=== PATIENT | female | born 1965 | race Caucasian/White ===

== ENCOUNTER 2020-09-19 08:46 | Outpatient (REF) | payer OTHER, SELFPAY ==
--- NOTE | 2020-10-05 13:58 | MHC.AU.HAS ---
Hearing Aid Evaluation Date of Visit: 09/19/20 Historical Information: Description of Hearing: Right: Mild sloping to profound sensorineural hearing loss Left: Severe to profound mixed hearing loss Summary: Patient is working with [employer]. She has worn KYARA and BTE style hearing aids in the past. Her most recent pair was by [employer] Patient reports a strong family history of hearing loss. Patient had frequent middle ear problems in childhood, resulting in numerous PE tube surgeries and significant scarring. Patient would prefer to stay with the KYARA style. Hearing Aid Prescription: Based on the individual?s shared listening needs, communication environments, dexterity, desire for connectivity, and personal preferences, the following prescription for amplification has been made: Right ear: Field Sales Trainer: Phonak Model: Audeo P70-R Battery Size: Rechargeable Color: P6 Figure Refinisher And Repairer: 1P Type of Mold: cShell Left ear: Field Sales Trainer: Phonak Model: Audeo P70-R Battery Size: Rechargeable Color: P6 Figure Refinisher And Repairer: 1UP Type of Mold: cShell Action Taken/Action Needed: Earmold Impressions Taken Prior authorization to be requested Hearing Fitting to be scheduled when materials arrive Signature: Provider: Bang Ronquillo, CCC-A
== END 2020-09-19 08:47 | disposition home or self-care (01) ==
LOC: HO.HAP 08:46
PROVIDERS: PCP Internal Medicine; Visit Provider Otolaryngology
DX: Z46.1 Encounter for fitting and adjustment of hearing aid (principal)
CPT/HCPCS: 92591

== ENCOUNTER 2020-12-06 08:12 | Outpatient (REF) | payer OTHER, SELFPAY ==
--- NOTE | 2020-12-06 09:04 | MHC.AU.HFU ---
Hearing Instrument Follow-Up- Binaural Date of Visit: 12/06/20 Follow-Up Summary: Patient had called to inquire if she could get a loaner instrument, as the MRC process took longer than expected. Being without hearing aids has significantly impacted her ability to perform at work. When she arrived today, she reported that she had found two of her older instruments, an Oticon Agil RITE and an Oticon Hartsburg RITE, but neither were working. One had a custom mold with integrated automotive painter helper, and the other custom mold was not integrated. The integrated automotive painter helper wire was loose, and almost ready to fall off. The Agil could not turn on, even when trying a different automotive painter helper. The Hartsburg could turn on and amplify sound, once it had a new automotive painter helper. The custom mold was placed on the new automotive painter helper. Patient was very thankful that she could have something to get her by until the new instruments arrive. No loaners were given today. Recommendations: Patient will be contacted to schedule a hearing aid fitting when the materials arrive (per Phonak, estimated to arrive either Thursday 12/07 or Sunday 12/10). Diagnosis Code(s): Primary Diagnosis: H90.3 Bilateral Sensorineural Hearing Loss Signature: Provider: Bang Ronquillo, CCC-A
== END 2020-12-06 08:13 | disposition home or self-care (01) ==
LOC: HO.HAP 08:12
PROVIDERS: Visit Provider Otolaryngology
DX: Z13.89 Encounter for screening for other disorder (principal)

== ENCOUNTER 2020-12-24 11:39 | Outpatient (REF) | payer SELFPAY ==
--- NOTE | 2020-12-24 11:42 | MHC.AU.P13 ---
Hearing Instrument Problem Date of Visit: 12/24/20 Right Ear: Memorial Adviser: Phonak Model: Audeo P70-R Serial Number: [id number] Repair Warranty: 03/06/2024 Loss and Damage Warranty: 03/06/2024 Battery Size: Rechargeable Color: P6 Animal Geneticist: 1P Type of Mold: cShell #[id number] Service Warranty 04/06/2021 Type of Wax Guard: CeruStop Left Ear: Memorial Adviser: Phonak Model: AirInSpaceeo P70-R Serial Number: [id number] Repair Warranty: 03/06/2024 Loss and Damage Warranty: 03/06/2024 Battery Size: Rechargeable Color: P6 Animal Geneticist: 1UP Type of Mold: cShell #2115ADNR Service Warranty 04/06/2021 Type of Wax Guard: CeruStop Follow-Up Summary: Patient dropped off right hearing aid for repair - histopathology technician is detached inside c-shell - sent to [facility] for in warranty repair. Recommendations: Recommendations: Patient will be contacted when materials have arrived. Signature: Provider: SHEN Mcdowell-
== END 2020-12-24 11:40 | disposition home or self-care (01) ==
LOC: HO.HAP 11:39
PROVIDERS: Visit Provider Internal Medicine
DX: Z13.89 Encounter for screening for other disorder (principal)

== ENCOUNTER 2021-01-08 10:27 | Outpatient (REF) | payer SELFPAY | END 2021-01-08 10:28 | disposition home or self-care (01) | LOC: HO.HAP 10:27 | PROVIDERS: Visit Provider Internal Medicine | DX: Z13.89 Encounter for screening for other disorder (principal) ==

== ENCOUNTER 2021-02-28 08:21 | Outpatient (REF) | payer SELFPAY | END 2021-02-28 08:22 | disposition home or self-care (01) | LOC: HO.HAP 08:21 | PROVIDERS: Visit Provider Internal Medicine | DX: Z46.1 Encounter for fitting and adjustment of hearing aid (principal); H90.3 Sensorineural hearing loss, bilateral | CPT/HCPCS: V5267 ==

== ENCOUNTER 2021-04-05 10:12 | Outpatient (REF) | payer SELFPAY | END 2021-04-05 10:13 | disposition home or self-care (01) | LOC: HO.HAP 10:12 | PROVIDERS: Visit Provider Internal Medicine | DX: Z46.1 Encounter for fitting and adjustment of hearing aid (principal); H90.3 Sensorineural hearing loss, bilateral | CPT/HCPCS: V5267 ==

== ENCOUNTER → 2021-05-13 09:52 | Outpatient (BNVA) | payer OTHER, SELFPAY | PROVIDERS: PCP Internal Medicine; Visit Provider Hospitalist | DX: J01.40 Acute pansinusitis, unspecified (principal); H67.9 Otitis media in diseases classified elsewhere, unspecified ear; J40 Bronchitis, not specified as acute or chronic; F17.200 Nicotine dependence, unspecified, uncomplicated | CPT/HCPCS: 99202 ==

== ENCOUNTER 2021-05-30 12:55 | Outpatient (REF) | payer SELFPAY | END 2021-05-30 12:56 | disposition home or self-care (01) | LOC: HO.HAP 12:55 | PROVIDERS: Visit Provider Internal Medicine | DX: Z46.1 Encounter for fitting and adjustment of hearing aid (principal); H90.3 Sensorineural hearing loss, bilateral | CPT/HCPCS: V5267 ==

== ENCOUNTER 2021-06-20 10:32 | Outpatient (REF) | payer SELFPAY ==
--- NOTE | 2021-06-21 15:00 | MHC.AU.HFU ---
Hearing Instrument Follow-Up- Binaural Date of Visit: 06/20/21 Right Ear: Rn Military: Phonak Model: Audeo P70-R Serial Number: [id number] Repair Warranty: 03/06/2024 Loss and Damage Warranty: 03/06/2024 Battery Size: Rechargeable Color: P6 Combat Control Manager: 1P Type of Mold: cShell #[id number] Service Warranty 04/06/2021 Type of Wax Guard: CeruStop Dispensed By: [facility] Date of Fittin12/13/2020 Left Ear: Rn Military: Phonak Model: Audeo P70-R Serial Number: [id number] Repair Warranty: 03/06/2024 Loss and Damage Warranty: 03/06/2024 Battery Size: Rechargeable Color: P6 Combat Control Manager: 1UP Type of Mold: cShell #2115ADNR Service Warranty 04/06/2021 Type of Wax Guard: CeruStop Dispensed By: [facility] Date of Fittin12/13/2020 Follow-Up Summary: Patient reports that some days the battery charge has not lasted as long as expected, but most days it's fine. She is unsure if they are charging correctly. She also reports that her left ear has always been prone to ear infections (also has long-standing tympanic membrane perforation). Since using the hearing aids, she has been experiencing more ear infections than usual, with drainage. She has not been wearing the left hearing aid when there is active drainage. Hearing aids were inspected. Vents in molds were occluded. Vents were cleaned. Debris removed from microphones. Molds and shells cleaned. Hearing aids are amplifying clearly. Software update was installed on the hearing aids. Hearing aids had an expected amount of charge for the time of day it was. Discussed that the more streaming is done from the phone, the more battery is used. The days the charge has not lasted all day may be the days she was using her phone more often. Patient also reports that she forgot how to turn them off manually, so if she took the hearing aids off, they were staying on. Discussed how to manually shut the hearing aids off, which will help save battery. Discussed the increased ear infections. Given the extent of patient's hearing loss, a dome or larger vent in the mold would not be advised, as then we would not be able to provide adequate gain for the hearing aid. Advised wiping down the mold with alcohol wipes every day. The vent had also been plugged with wax. Gave the patient threads to clean out the vent on a daily basis so that it can stay clear and help provide some airflow to the canal. Discussed that she may also want to briefly take the hearing aid out a few times throughout the day to air out the ear canal. Recommendations: Hearing instrument follow-up or maintenance as needed. Please contact our clinic with any questions or concerns. Patient will call if problems persist. If she continues to experience more ear infections than usual, she should also follow-up to with Ear, Nose, and Throat to discuss further ways to prevent infection. Diagnosis Code(s): Primary Diagnosis: H90.A32 Mixed HL, Unilateral, Left Ear, W/Restricted Contralateral Signature: Provider: Bang Ronquillo, CCC-A
== END 2021-06-20 10:33 | disposition home or self-care (01) ==
LOC: HO.HAP 10:32
PROVIDERS: Visit Provider Internal Medicine
DX: Z13.89 Encounter for screening for other disorder (principal)

== ENCOUNTER 2021-08-13 15:20 | Outpatient (REF) | payer SELFPAY | END 2021-08-13 15:21 | disposition home or self-care (01) | LOC: HO.HAP 15:20 | PROVIDERS: Visit Provider Internal Medicine | DX: Z46.1 Encounter for fitting and adjustment of hearing aid (principal) | CPT/HCPCS: V5267 ==

== ENCOUNTER 2021-09-30 10:26 | Outpatient (REF) | payer SELFPAY | END 2021-09-30 10:27 | disposition home or self-care (01) | LOC: HO.HAP 10:26 | PROVIDERS: Visit Provider Internal Medicine | DX: Z13.89 Encounter for screening for other disorder (principal) ==

== ENCOUNTER 2021-10-09 11:10 | Outpatient (REF) | payer SELFPAY | END 2021-10-09 11:11 | disposition home or self-care (01) | LOC: HO.HAP 11:10 | PROVIDERS: Visit Provider Internal Medicine | DX: Z13.89 Encounter for screening for other disorder (principal) ==

== ENCOUNTER 2022-01-14 09:47 | Outpatient (REF) | payer SELFPAY ==
--- NOTE | 2022-01-14 16:59 | MHC.AU.HFU ---
Hearing Instrument Follow-Up- Binaural Date of Visit: 01/14/22 Right Ear: Account Service Representative: Phonak Model: Audeo P70-R Serial Number: [id number] Repair Warranty: 03/06/2024 Loss and Damage Warranty: 03/06/2024 Battery Size: Rechargeable Color: P6 Fundraising Specialist: 1P Type of Mold: cShell #[id number] Service Warranty 04/06/2021 Type of Wax Guard: CeruStop Dispensed By: [facility] Date of Fittin12/13/2020 Left Ear: Account Service Representative: Phonak Model: Audeo P70-R Serial Number: [id number] Repair Warranty: 03/06/2024 Loss and Damage Warranty: 03/06/2024 Battery Size: Rechargeable Color: P6 Fundraising Specialist: 1UP Type of Mold: cShell #[id number] Service Warranty 04/06/2021 Type of Wax Guard: CeruStop Dispensed By: [facility] Date of Fittin12/13/2020 Follow-Up Summary: Patient dropped off aids to be sent for repair. She called last week reporting that she gets the low battery warning after only two hours of use. She is frustrated and would like them to be replaced. Discussed the moisture problems that we discussed last time. She noted that she needs a new battery for her electric dryer so she hasn't used it since last time we spoke in September when the aids were sent out for the same problem. Inspection of the aids indicates that they are quite dirty, microphone ports clogged, missing wax guard on one, discoloration of the pillar worker wires. Suspect that moisture has a lot to do with the problem. Going to recommend hearing aid moisture covers and emphasize importance of frequent maintenance and use of the electric dryer. Recommendations: Patient will be contacted when materials have arrived. Schedule a repair pick-up with Melva when in. Diagnosis Code(s): Primary Diagnosis: H90.3 Bilateral Sensorineural Hearing Loss Signature: Provider: Bang Dimas, [facility]
== END 2022-01-14 09:48 | disposition home or self-care (01) ==
LOC: HO.HAP 09:47
PROVIDERS: Visit Provider Internal Medicine
DX: Z13.89 Encounter for screening for other disorder (principal)

== ENCOUNTER 2022-02-07 09:02 | Outpatient (REF) | payer SELFPAY | END 2022-02-07 09:03 | disposition home or self-care (01) | LOC: HO.HAP 09:02 | PROVIDERS: Visit Provider Internal Medicine | DX: Z13.89 Encounter for screening for other disorder (principal) ==

== ENCOUNTER 2022-06-24 12:49 | Outpatient (REF) | payer SELFPAY ==
--- NOTE | 2022-06-30 07:50 | MHC.AU.HFU ---
Hearing Instrument Follow-Up- Binaural Date of Visit: 06/24/22 Right Ear: Brand Inspector: Phonak Audeo P 70-R Silver Osborn Serial #[id number] Repair Warranty: 03/06/2024 Loss and Damage Warranty: 03/06/2024 Service Plan: 12/13/2021 Battery Size: Rechargeable Color: P6 Live Ammunition Inspector: 1P Type of Mold: cShell #[id number] Service Warranty 04/06/2021 Type of Wax Guard: CeruStop Dispensed By: [facility] Date of Fittin12/13/2020 Left Ear: Brand Inspector: Phonak Audeo P 70-R Silver Osborn Serial #[id number] Repair Warranty: 03/06/2024 Loss and Damage Warranty: 03/06/2024 Service Plan: 12/13/2021 Battery Size: Rechargeable Live Ammunition Inspector: 1UP Type of Mold: cShell #2115ADNR Service Warranty 04/06/2021 Type of Wax Guard: CeruStop Dispensed By: [facility] Date of Fittin12/13/2020 Follow-Up Summary: Hearing Aid Problem - Patient comes in today reporting more problems with the division merchandise manager and only getting 2-3 hours of use before the aids shut off. I provided another division merchandise manager which was an extra from the office today (verified aids were not charging in the division merchandise manager patient brought but did charge on our stock division merchandise manager) Patient is concerned about the durability. Discussed the results of the diagnostics run with last repairs sent in. Patient is hoping to be able to exchange these aids to the battery style but discussed we are past the exchange time. I EMAILED JOANNA GIFFORD AT [facility] TO EXPLAIN THE PROBLEM, PATIENT'S REQUEST, AND THE REQUEST FOR A CHARGE & CARE MECHANICAL APPLICATIONS ENGINEER. SEE COPY OF EMAIL IN CHART. Recommendations: WILL CONTACT PATIENT WHEN REPLY FROM JOANNA GIFFORD IS RECEIVED. Diagnosis Code(s):Primary Diagnosis: H90.3 Bilateral Sensorineural Hearing Loss Signature: Provider Susan Cuenca CCC-Taiwo Provider:
== END 2022-06-24 12:50 | disposition home or self-care (01) ==
LOC: HO.HAP 12:49
PROVIDERS: Visit Provider Internal Medicine
DX: Z13.89 Encounter for screening for other disorder (principal)

== ENCOUNTER 2022-07-15 15:13 | Outpatient (REF) | payer SELFPAY ==
--- NOTE | 2022-07-15 17:34 | MHC.AU.HFU ---
Hearing Instrument Follow-Up- Binaural Date of Visit: 07/15/22 Right Ear: Outreach Rep: Phonak Audeo P 70-R Silver Osborn Serial #[id number] Repair Warranty: 03/06/2024 Loss and Damage Warranty: 03/06/2024 Service Plan: 12/13/2021 Battery Size: Rechargeable Skiver Counter: 1P Type of Mold: cShell #[id number] Service Warranty 04/06/2021 Type of Wax Guard: CeruStop Dispensed By: [facility] Date of Fittin12/13/2020 Left Ear: Outreach Rep: Phonak Audeo P 70-R Silver Osborn Serial #[id number] Repair Warranty: 03/06/2024 Loss and Damage Warranty: 03/06/2024 Service Plan: 12/13/2021 Battery Size: Rechargeable Skiver Counter: 1UP Type of Mold: cShell #[id number] Service Warranty 04/06/2021 Type of Wax Guard: CeruStop Dispensed By: [facility] Date of Fittin12/13/2020 Follow-Up Summary: Patient continues to report the aids are not keeping a charge all day and she is no longer receiving her notifications from her cell phone through the aids. Able to check datalogging today (last visit the aids were not charged). Datalogging show 14-15 average daily wearing time of aids with 21.5 % streaming. Patient was a bit upset because she did not know/believe how much the streaming decreased battery. Called [facility] to have patient discuss her concerns. The Airframe And Powerplant Technician reported she felt patient was actually getting more time than expected for battery life based on number of wearing hours and streaming time. Patient has a better understanding of how and when to use aids with bluetooth. Notification problems are likely related to the fact she just bought a new phone and she was advised by [facility] to contact her phone carrier. I decided to continue with sending both aids out for clean/check AND DIAGNOSIS again. Provided loaners with batteries. COURTESY CHARGE AND CARE LOGISTICS PROGRAM MANAGER SENT FROM JOANNA GIFFORD AT [email or web address] ON [employer] FOR NEXT VISIT Recommendations: Patient will be contacted when materials have arrived. Diagnosis Code(s):Primary Diagnosis: H90.3 Bilateral Sensorineural Hearing Loss Signature:Provider: Kan Goss, [facility]
== END 2022-07-15 15:14 | disposition home or self-care (01) ==
LOC: HO.HAP 15:13
PROVIDERS: Visit Provider Internal Medicine
DX: Z13.89 Encounter for screening for other disorder (principal)

== ENCOUNTER 2022-07-18 11:59 | Outpatient (REF) | payer SELFPAY | END 2022-07-18 12:00 | disposition home or self-care (01) | LOC: HO.HAP 11:59 | PROVIDERS: Visit Provider Internal Medicine | DX: Z13.89 Encounter for screening for other disorder (principal) ==

== ENCOUNTER 2022-08-04 14:21 | Outpatient (REF) | payer SELFPAY | END 2022-08-04 14:22 | disposition home or self-care (01) | LOC: HO.HAP 14:21 | PROVIDERS: Visit Provider Internal Medicine | DX: Z13.89 Encounter for screening for other disorder (principal) ==

== ENCOUNTER 2023-04-30 07:56 | Outpatient (REF) | payer SELFPAY ==
--- NOTE | 2023-04-30 09:13 | MHC.AU.HA3 ---
Hearing Instrument Follow-Up- Binaural Date of Visit: 04/30/23 Right Ear: Stanton, Model, Color, Serial Number: Tania Magallanes P 70-R SN: [id number] Color:Silver Osborn Plate Fitter Repair Warranty: 03/06/2024 Plate Fitter Loss and Damage Warranty: 03/06/2024 [facility] Service Plan: 12/13/2021 Battery Size: Rechargeable Internal Medicine Physician/Slim Tube: 1P Earmold/Dome/CShell/SlimTip:cShell SN:[id number] Warranty: 04/06/2021 Type of Wax Guard: CeruStop Dispensed By: [facility] Date of Fittin12/13/2020 Left Ear: Stanton, Model, Color, Serial Number: Tania Dardeno P 70-R SN: [id number] Color: Silver Osborn Plate Fitter Repair Warranty: 03/06/2024 Plate Fitter Loss and Damage Warranty: 03/06/2024 [facility] Service Plan: 12/13/2021 Battery Size: Rechargeable Internal Medicine Physician/Slim Tube: 1UP Earmold/Dome/CShell/SlimTip: cShell SN: [id number] Warranty: 04/06/2021 Type of Wax Guard: CeruStop Dispensed By: [facility] Date of Fittin12/13/2020 Follow-Up Summary: Latesha reported that her hearing aids have been sounding weak and is continuing to have charging issues. Microphones plugged with debris. Cleaned both hearing aids and c-shell. Brushed and vacuumed microphones. Ran through dehumidifier. Listening check showed improvement in sound quality after cleaning. Latesha requested overall volume be increased very slightly. Increased overall gain level to 103%. Provided cleaning brush and instructed to brush microphones every night. Also gave new Phonak wall plug with rounded corners as Phonak has recognized original square wall plug has created charging issues. Updated firmware which also noted improve charging reliability. Right supervisor microfilm duplicating unit still has foam protective cover on inside the c-shell. Does not appear to be affecting sound quality at this time. Discussed [facility] Service agreement as well as groover runner warranty. Latesha knows service agreement has and office visits will incur fees. Paid $50.00 today. Recommended updated hearing test as Latesha reported a perceived decrease in hearing and subsequent reprogramming, as necessary as well as sending hearing aids and c-shells to [facility] for service prior to groover runner warranty expiring in February 2024. Charge and Care Manager Banking (Given as a Courtesy by Tania SN: [id number] Warranty: 09/28/2023) Recommendations: Recommendations: Hearing instrument follow-up or maintenance as needed. Recommendations (Other): Latesha will request a doctor's order for an updated hearing test. Diagnosis Code(s): Primary Diagnosis: H90.A21 SNHL, Unilateral Right Ear, W/Restricted Contralateral Hearing Secondary Diagnosis: H90.A32 Mixed HL, Unilateral, Left Ear, W/Restricted Contralateral Signature: Provider: Kan Guerra, [facility]
== END 2023-04-30 07:57 | disposition home or self-care (01) ==
LOC: HO.HAP 07:56
PROVIDERS: Visit Provider Internal Medicine
DX: Z46.1 Encounter for fitting and adjustment of hearing aid (principal); H90.A21 Sensorineural hearing loss, unilateral, right ear, with restricted hearing on the contralateral side
CPT/HCPCS: 92593

== ENCOUNTER 2023-07-16 09:17 | Outpatient (REF) | payer OTHER, SELFPAY | END 2023-07-16 09:18 | disposition home or self-care (01) | LOC: HO.SH 09:17 | PROVIDERS: Visit Provider Internal Medicine | DX: Z01.118 Encounter for examination of ears and hearing with other abnormal findings (principal); H90.6 Mixed conductive and sensorineural hearing loss, bilateral | CPT/HCPCS: 92557; 92567 ==

== ENCOUNTER 2023-07-30 11:08 | Outpatient (REF) | payer SELFPAY ==
--- NOTE | 2023-07-31 10:08 | MHC.AU.HA2 ---
Hearing Instrument Fitting- Adult- Binaural Date of Visit: 07/30/23 Hearing Instruments Dispensed: Right Ear: Make, Model, Color, Serial Number: Oticon Real 2 miniRITE T, silver [employer] Repair Warranty: 03/06/2024 [employer] Loss and Damage Warranty: 03/06/2024 [facility] Service Plan: 12/13/2021 Battery Size: 312 Manager Of Corporate/Slim Tube: 1P Earmold/Dome/CShell/SlimTip: Power mold Type of Wax Guard: CeruStop Left Ear: Make, Model, Color, Serial Number: Oticon Real 2 miniRITE T, silver [employer] Repair Warranty: 03/06/2024 [employer] Loss and Damage Warranty: 03/06/2024 [facility] Service Plan: 12/13/2021 Battery Size: 312 Manager Of Corporate/Slim Tube: 1UP Earmold/Dome/CShell/SlimTip: Power mold Type of Wax Guard: CeruStop Accessories/Assistive Technology: Connect Clip Dry jar Recommendations: Recommendations: Return for impression once left ear is clear. Diagnosis Code(s): Primary Diagnosis: H90.6 Mixed Hearing Loss, Bilateral Signature: Provider: Bang Galaviz, CCC-A
--- NOTE | 2023-07-31 10:09 | MHC.AU.MED ---
Medical Clearance for Hearing Instrumentation Date: 07/31/23 Patient Name: Latesha Douglas Date of : 1965 Primary Care Provider: Referring Provider: Bryson Hudson MD We have seen your patient on 07/30/23 and have determined that they are a candidate for amplification (See accompanying report). Specifically, they would benefit from: Hearing aid use in both ears There is a statute that addresses Medical Evaluation Requirements prior to fitting a patient with a hearing aid. According to [place] statute 265 CMR:6.03(1), (a) General. Except as provided in 265 CMR 6.03(1)(b), a shearing machine operator shall not sell a hearing aid unless the prospective user has presented to the shearing machine operator a written statement signed by a licensed physician that states that the patient's hearing loss has been medically evaluated and the patient may be considered a candidate for a hearing aid. The medical evaluation must have taken place within the preceding six months. Please note: Due to the [place] Statute referenced above, we cannot accept a signature other than that of a licensed physician. CERTIFIED NOVELL ENGINEER and PA signatures cannot be accepted. I am in agreement with the above recommendation. There is no medical contraindication for hearing instrumentation. Physician Signature Date Physician Name (Printed)
--- NOTE | 2023-07-31 10:12 | MHC.AU.HA1 ---
Hearing Aid Evaluation Date of Visit: 07/30/23 Power Brake Rebuilder Used: Historical Information: Description of Hearing: Right ear: Moderate to severe mixed hearing loss Left ear: Severe to profound mixed hearing loss Current personal amplification information, if applicable: Phonak Audeo P70-R Summary: Latesha returned for an [facility] hearing aid consult and earmold impression. She reports the infection in her left ear has cleared and she feels her hearing has improved slightly as well. Discussed hearing aid options again, she very much wants to stay away from rechargeable hearing aids and wishes to work with a different leasing associate as she was so unhappy with her Phonak aids. I again recommended UP BTEs due to the severity of her left ear, but Latesha was firmly against wearing a hearing aid of that size. Discussed trade-offs of size vs power, as at our last discussion she had wanted power over size, but she says she will not wear a hearing aid that large. Agreed to try power molds on Oticon Real 2 T 312s ([employer]), discussed that battery life of a 312 will be much shorter than a 675, especially considering the amount of streaming she does from her phone. Attempted impression but her left ear still had a considerable amount of wax/debris/moisture with a wax guard stuck in it. She will see her PCP to check for any remaining infection and return for impression once cleared. I will request medical clearance in the meantime. Hearing Aid Prescription: Based on the individual?s shared listening needs, communication environments, dexterity, desire for connectivity, and personal preferences, the following prescription for amplification has been made: Right ear: Make, Model, Color: Oticon Real 2 miniRITE T, silver Battery Size: 312 Rn Clinical Quality/Slim Tube: 1P Type of Earmold/Dome/CShell/SlimTip: Power mold Left ear: Left ear prescription to be same as Right Hearing Aid above: Make, Model, Color: Oticon Real 2 miniRITE T, silver Battery Size: 312 Rn Clinical Quality/Slim Tube: 1UP Type of Earmold/Dome/CShell/SlimTip: Power mold Accessories/Assistive Technology Recommended: Connect Clip Dry jar Plan of Care: Patient wishes to purchase hearing aids as prescribed Action Taken/Action Needed: Comments: Return for impression once left ear is clear. Primary Diagnosis: H90.6 Mixed Hearing Loss, Bilateral Signature: Provider: Bang Galaviz, [facility]
== END 2023-07-30 11:09 | disposition home or self-care (01) ==
LOC: HO.HAP 11:08
PROVIDERS: Visit Provider Internal Medicine
DX: Z46.1 Encounter for fitting and adjustment of hearing aid (principal); H90.6 Mixed conductive and sensorineural hearing loss, bilateral
CPT/HCPCS: 92591

== ENCOUNTER 2023-08-12 11:12 | Outpatient (REF) | payer SELFPAY ==
--- NOTE | 2023-08-14 09:20 | MHC.AU.HA3 ---
Hearing Instrument Follow-Up- Binaural Date of Visit: 08/14/23 Right Ear: Make, Model, Color, Serial Number: Tania Kwoneo P70-R Avp Repair Warranty: 03/06/2024 Avp Loss and Damage Warranty: 03/06/2024 [facility] Service Plan: 12/13/2021 Battery Size: 312 Earmold/Dome/CShell/SlimTip:Power mold Type of Wax Guard: CeruStop Dispensed By: [facility] Date of Fittin12/13/2020 Left Ear: Make, Model, Color, Serial Number: Tania Kwoneo P70-R Avp Repair Warranty: 03/06/2024 Avp Loss and Damage Warranty: 03/06/2024 [facility] Service Plan: 12/13/2021 Battery Size: 312 Earmold/Dome/CShell/SlimTip: Power mold Type of Wax Guard: CeruStop Dispensed By: [facility] Date of Fittin12/13/2020 Follow-Up Summary: Latesha visited for impressions now that her ear is clear of infection and debris. She changed her mind since our last conversation and would now like to go with BTEs to get the most power possible for her left ear as well as better battery life. Re-checked left thresholds, no significant change since infection cleared. Impressions taken without incident. Will submit new quote to [facility] and order aids/earmolds once approved. Recommendations: Recommendations: Patient will be contacted when materials have arrived. Diagnosis Code(s): Primary Diagnosis: H90.6 Mixed Hearing Loss, Bilateral Signature: Provider: Bang Galaviz, [facility]
== END 2023-08-12 11:13 | disposition home or self-care (01) ==
LOC: HO.HAP 11:12
PROVIDERS: Visit Provider Internal Medicine
DX: Z13.89 Encounter for screening for other disorder (principal)

== ENCOUNTER 2023-09-22 12:49 | Outpatient (REF) | payer SELFPAY ==
--- NOTE | 2023-09-22 13:26 | MHC.AU.HA3 ---
Hearing Instrument Follow-Up- Binaural Date of Visit: 09/22/23 Right Ear: Make, Model, Color, Serial Number: Otpaola Exceed 2 BTE Cecilia SN [id number] Senior Oracle Database Administrator Repair Warranty: 09/12/2026 Senior Oracle Database Administrator Loss and Damage Warranty: 09/12/2026 [facility] Service Plan: 09/02/24 Battery Size: 675 Earmold/Dome/CShell/SlimTip:Skeleton mold Dispensed By: [facility] Left Ear: Make, Model, Color, Serial Number: Otpaola Xceed 2 BTE SN [id number] Senior Oracle Database Administrator Repair Warranty: 09/12/2026 Senior Oracle Database Administrator Loss and Damage Warranty: 09/12/2026 [facility] Service Plan: 09/02/24 Battery Size: 675 Earmold/Dome/CShell/SlimTip: Skeleton mold Dispensed By: [facility] Follow-Up Summary: Latesha reports she is overall pleased with her hearing aids but notes she sometimes strains to hear. Increased overall gain, additional increase in mids. Turned battery indicator and phone streaming volume to max per patient request. Dispensed repaired Phonak aids and dehumidifier. Additional follow up scheduled before end of trial. Recommendations: Recommendations: An additional follow-up was scheduled to monitor progress. Diagnosis Code(s): Primary Diagnosis: H90.6 Mixed Hearing Loss, Bilateral Signature: Provider: Bang Galaviz, [facility]
== END 2023-09-22 12:50 | disposition home or self-care (01) ==
LOC: HO.HAP 12:49
PROVIDERS: Visit Provider Internal Medicine
DX: Z13.89 Encounter for screening for other disorder (principal)

== ENCOUNTER 2023-10-07 07:51 | Outpatient (REF) | payer SELFPAY | END 2023-10-07 07:52 | disposition home or self-care (01) | LOC: HO.HAP 07:51 | PROVIDERS: Visit Provider Internal Medicine | DX: Z13.89 Encounter for screening for other disorder (principal) ==

== ENCOUNTER 2023-11-04 07:51 | Outpatient (REF) | payer SELFPAY | END 2023-11-04 07:52 | disposition home or self-care (01) | LOC: HO.HAP 07:51 | PROVIDERS: Visit Provider Internal Medicine | DX: Z13.89 Encounter for screening for other disorder (principal) ==

== ENCOUNTER 2024-03-07 07:54 | Outpatient (REF) | payer SELFPAY | END 2024-03-07 07:55 | disposition home or self-care (01) | LOC: HO.HAP 07:54 | PROVIDERS: Visit Provider Internal Medicine | DX: Z13.89 Encounter for screening for other disorder (principal) ==

== ENCOUNTER 2024-04-11 07:53 | Outpatient (REF) | payer SELFPAY | END 2024-04-11 07:54 | disposition home or self-care (01) | LOC: HO.HAP 07:53 | PROVIDERS: Visit Provider Internal Medicine | DX: Z13.89 Encounter for screening for other disorder (principal) ==

== ENCOUNTER 2024-04-27 08:04 | Outpatient (REF) | payer SELFPAY | END 2024-04-27 08:05 | disposition home or self-care (01) | LOC: HO.HAP 08:04 | PROVIDERS: Visit Provider Internal Medicine | DX: Z13.89 Encounter for screening for other disorder (principal) ==

== ENCOUNTER 2024-05-17 07:52 | Outpatient (REF) | payer SELFPAY | END 2024-05-17 07:53 | disposition home or self-care (01) | LOC: HO.HAP 07:52 | PROVIDERS: Visit Provider Internal Medicine | DX: Z13.89 Encounter for screening for other disorder (principal) ==

== ENCOUNTER 2024-06-07 07:57 | Outpatient (REF) | payer SELFPAY | END 2024-06-07 07:58 | disposition home or self-care (01) | LOC: HO.HAP 07:57 | PROVIDERS: Visit Provider Internal Medicine | DX: Z13.89 Encounter for screening for other disorder (principal) ==

== ENCOUNTER 2024-09-29 11:49 | Outpatient (REF) | payer SELFPAY ==
--- OUTSIDE RECORDS SUMMARY | 2024-09-29 12:15 | XMS_ITS | Data Portability ---
Author Organization [facility], Main Office Address [address] [place] [address] Care Team Providers Care Helicopter Technician Name Role Phone BERE HUDSON Primary Care Provider FALGUNI JAQUEZ Cardiac Cath Rn NISREEN MCGOVERN Referring Provider SHAHBAZ NICHOLAS Referring Provider [facility] THROAT SURGEONS O F [facility] Form Tamper Operator [facility] ENDOCRINOLOGY SCHEDULING DEPT Endocrino logist [facility] Psychological Operations Officer Unavailable Patient Coordinator Assessment Encounter Date Assessment Date Assessment LastModified by Organization Details LastModified Time 03/18/2023 03/18/2023 This service was provided using telemedicine. Patient consented to video & audio visit Patient was located in the [facility]. Provider was located in the office. No other persons participated in the telemedicine visit except for the patient unless otherwise indicated here. {{}} Total time of visit was 19 minutes. [email or web address] Not available 03/18/2023 13:41:56 Plan of Treatment Reminders Order Date Submit Date Provider Last Modified By Organization Details Last Modified Time Details Appointments None recorde d. Lab CBC w/ auto diff 2023 024 PATRICK [facility], [address], [facility] [address], [place], [address], 08:06:55 CMP, serum or plasma 2023 024 PATRICK [facility], [address], [place], [address], 4 08:06:56 lipid panel, serum 2023 024 PATRICK [facility], [address], [place], [address], 4 08:06:57 HbA1c (hemogl obin A1c), blood 2023 024 PATRICK [facility], [address], [place], [address], 4 08:06:58 albumin /creati nine, mass ratio, urine 2023 024 PATRICK [facility], [address], [place], [address], 4 08:06:57 hemoglo bin A1C, fingers tick 2022 023 PATRICK In-Office Order, Internal Use Only DO Not Attach Compendium DO Not Attach Compendium, Do Not Delete/merge, [id number] 3 16:09:28 hemoglo bin A1C, fingers tick 2022 023 [email or web address] In-Office Order, Internal Use Only DO Not Attach Compendium DO Not Attach Compendium, Do Not Delete/merge, [id number] 3 08:52:53 microal bumin, urine 2022 023 PATRICK [facility], [address], [address], [place], [address], 3 17:02:35 CBC w/ auto diff 2022 023 PATRICK [facility], [address], [address], [place], [address], 3 16:29:21 CMP, serum or plasma 2022 023 PATRICK [facility], [address], [place], [address], 3 17:19:42 lipid panel, serum 2022 023 PATRICK [facility], [address], [place], [address], 3 17:19:43 TSH, serum or plasma 2022 023 PATRICK [facility], [address], [place], [address], 3 17:24:21 Referral gastroe nterolo gist referra l - Needs colon cancer screeni ng 2022 023 celestina [facility], [address] [place], [address], 3 09:53:26 general surgeon referra l - Large mass to posteri or left neck x years ? lipoma, pain, swellin g affecti ng ADLS. 2022 Marcella oscar [facility] General Surgery, [address] [place] [address] [facility] [address], [place], [address], 3 12:39:15 Procedures colonos copy screeni ng (PROC) 2022 Marcella oscar In-Office Order, Internal Use Only DO Not Attach Compendium DO Not Attach Compendium, Do Not Delete/merge, [id number] 3 11:50:23 Surgeries None recorde d. Imaging US, neck, soft tissue - 2 masses posteri or, left side of neck- size of a basebal l, r/o lipoma vs cyst 2022 023 [email or web address] [facility] Radiology, [address] [place], [address], 3 10:48:42 Medication Orders clotrim azole 1 % topical solutio n 2023 024 [id number], [address] [place], [address], 4 10:43:20 Pataday Once Daily Relief 0.2 % eye drops 2023 024 [facility], [address] [place], [address], 4 10:43:50 neomyci n 3.5 mg/g-po lymyxin B 10,000 unit/g- dexamet h 0.1 % eye oint 2022 024 [facility], [address] [place], [address], 4 15:54:09 omepraz ole 40 mg capsule ,delaye d release 2022 023 [facility], [address] [place], [address], 3 08:55:00 amlodip ine 10 mg tablet 2022 023 [facility], [address] [place], [address], 3 08:55:02 valsart an 160 mg-hydr ochloro thiazid e 25 mg tablet 2022 023 [id number], [address] [place], [address], 3 08:55:01 Patient TargetsNo targets recorded. Patient Instructions Encounter Date Encounter Id Patient Instructions Last Modified By Organization Details Last Modified Time 02/05/2023 [id number] To call or retur n for worsening or concerns [email or web address] Not available 02/05/2023 08:52:58 03/18/2023 [id number] lipoma: care instructions [email or web address] Not available 03/18/2023 13:44:48 To call or retur n for worsening or concerns [email or web address] Not available 03/18/2023 13:44:55 06/23/2023 [id number] type 2 diabetes: care instructions [email or web address] Not available 06/23/2023 15:57:39 learning about colon cancer [email or web address] Not available 06/23/2023 15:56:40 11/09/2023 [id number] managing your allergies: care instructions pmadden Not available 11/09/2023 16:42:43 saline nasal washes: care instructions pmadden Not available 11/09/2023 16:42:43 otomycosis: care instructions pmadden Not available 11/09/2023 16:42:43 allergies: care instructions pmadden Not available 11/09/2023 16:42:43 allergic conjunctivitis in teens: care instructions pmadden Not available 11/09/2023 16:42:43 Patient will fol low up and keep appointment as scheduled. pmadden Not available 11/09/2023 16:42:10 07/13/2024 [id number] hearing loss: ca re instructions [email or web address] Not available 07/13/2024 11:50:05 gastroesophageal reflux disease (GERD): care instructions [email or web address] Not available 07/13/2024 11:50:05 high blood pressure: care instructions acennerazzo Not available 07/13/2024 11:45:19 learning about h igh blood pressure acennerazzo Not available 07/13/2024 11:45:20 type 2 diabetes: care instructions [email or web address] Not available 07/13/2024 11:28:46 Reason for Referral General Surgeon Referral for Lipoma of skin Large mass to posterior left neck x years ? lipoma, pain, swelling affecting ADLS. Referring Physician: Clyde Nava, Family Medicine, Encounter Date: 03/18/2023 Office Support Clerk Referral for Screening for malignant neoplasm of colon Needs colon cancer screening Referring Physician: Bere [facility], Encounter Date: 06/23/2023 Results Created Date Observation Date Name Description Value Unit Range Abnormal Flag Note LastModifiedBy Organization Detail LastModifiedTime 02/06/20 23 02/05/2023 COMPL ETE CBC WITH DIFF WBC 8.4 K/mm3 (4.0-1 1.0) Not Available [facility] [address] [place], [address], 02/05/2023 16:29:20 02/06/20 23 02/05/2023 COMPL ETE CBC WITH DIFF RBC 4.41 M/mm3 (4.20- 5.40) Not Available [facility] [address], [address], 02/05/2023 16:29:20 02/06/20 23 02/05/2023 COMPL ETE CBC WITH DIFF HGB 14.5 gm/dL (11.7- 15.5) Not Available [facility] [address] [place], [address], 02/05/2023 16:29:20 02/06/20 23 02/05/2023 COMPL ETE CBC WITH DIFF HCT 43.3 % (35.7- 45.8) Not Available [facility] [address] [place], [address], 02/05/2023 16:29:20 02/06/20 23 02/05/2023 COMPL ETE CBC WITH DIFF MCV 98.2 fL (80.0- 100.0) Not Available [facility] [address] [place], [address], 02/05/2023 16:29:20 02/06/20 23 02/05/2023 COMPL ETE CBC WITH DIFF MCH 32.9 pg (27.0- 34.0) Not Available [facility] [address] [place], [address], 02/05/2023 16:29:20 02/06/20 23 02/05/2023 COMPL ETE CBC WITH DIFF MCHC 33.5 g/dL (33.0- 37.0) Not Available [facility] [address] [place], [address], 02/05/2023 16:29:20 02/06/20 23 02/05/2023 COMPL ETE CBC WITH DIFF plt 218 K/mm3 (150-4 60) Not Available [facility] [address] [place], [address], 02/05/2023 16:29:20 02/06/20 23 02/05/2023 COMPL ETE CBC WITH DIFF RDW-SD 45.0 fL (<47.0 ) Not Available [facility] [address] [place], [address], 02/05/2023 16:29:20 02/06/20 23 02/05/2023 COMPL ETE CBC WITH DIFF MPV 12.8 fL (9.4-1 2.4) high Not Available [facility] [address] [place], [address], 02/05/2023 16:29:20 02/06/20 23 02/05/2023 COMPL ETE CBC WITH DIFF automated NRBC 0.0 #/100 _WBC' s Not Available [facility] [address] [place], [address], 02/05/2023 16:29:20 02/06/20 23 02/05/2023 COMPL ETE CBC WITH DIFF abs. NRBC 0.0 K/mm3 Not Available [facility] [address] [place], [address], 02/05/2023 16:29:20 02/06/20 23 02/05/2023 COMPL ETE CBC WITH DIFF neut # 4.8 K/mm3 (1.3-7 .0) Not Available [facility] [address] [place], [address], 02/05/2023 16:29:20 02/06/20 23 02/05/2023 COMPL ETE CBC WITH DIFF lymph # 2.9 K/mm3 (0.8-3 .1) Not Available [facility] [address] [place], [address], 02/05/2023 16:29:20 02/06/20 23 02/05/2023 COMPL ETE CBC WITH DIFF mono# 0.4 K/mm3 (0.4-0 .9) Not Available [facility] [address] [place], [address], 02/05/2023 16:29:20 02/06/20 23 02/05/2023 COMPL ETE CBC WITH DIFF eo # 0.1 K/mm3 (0.0-0 .4) Not Available [facility] [address] [place], [address], 02/05/2023 16:29:20 02/06/20 23 02/05/2023 COMPL ETE CBC WITH DIFF baso # 0.1 K/mm3 (0.0-0 .1) Not Available [facility] [address] [place], [address], 02/05/2023 16:29:20 02/06/20 23 02/05/2023 COMPL ETE CBC WITH DIFF abs. imm gran 0.0 K/mm3 Not Available [facility] [address] [place], [address], 02/05/2023 16:29:20 02/06/20 23 02/05/2023 COMPL ETE CBC WITH DIFF neut 57.4 % (44-76 ) Not Available [facility] [address] [place], [address], 02/05/2023 16:29:20 02/06/20 23 02/05/2023 COMPL ETE CBC WITH DIFF lymph 34.7 % (15-43 ) Not Available [facility] [address] [place], [address], 02/05/2023 16:29:20 02/06/20 23 02/05/2023 COMPL ETE CBC WITH DIFF monocyte 5.2 % (4.5-1 0.5) Not Available [facility] [address] [place], [address], 02/05/2023 16:29:20 02/06/20 23 02/05/2023 COMPL ETE CBC WITH DIFF eo 1.7 % (0-6) Not Available [facility] [address] [place], [address], 02/05/2023 16:29:20 02/06/20 23 02/05/2023 COMPL ETE CBC WITH DIFF baso 0.6 % (0-2) Not Available [facility] [address] [place], [address], 02/05/2023 16:29:20 02/06/20 23 02/05/2023 COMPL ETE CBC WITH DIFF imm gran 0.4 % Not Available [facility] [address] [place], [address], 02/05/2023 16:29:20 02/06/20 23 02/05/2023 URINA RY MICRO ALBUM IN micro-albumi n 47.0 mg/L (<20) high The urine micro album in test is desig robby to monit or renal funct ion. When scree anushka for Bence Justice prote inuri a, urine elect ropho resis is recom ronda ness. Not Available [facility] [address] [place], [address], 02/05/2023 17:02:35 02/06/20 23 02/05/2023 URINA RY MICRO ALBUM IN malb/creat ratio 47.4 mg/gm (0-20) high Not Available [facility] [address] [place], [address], 02/05/2023 17:02:35 02/06/20 23 02/05/2023 URINA RY MICRO ALBUM IN urine creat for micro albumin 99.8 mg/dL Not Available [facility] [address] [place], [address], 02/05/2023 17:02:35 02/06/20 23 02/05/2023 COMPR EHENS KAVYA METAB OLIC PANL glucose 148 mg/dL (70-99 ) high Not Available [facility] [address] [place], [address], 02/05/2023 17:19:42 02/06/20 23 02/05/2023 COMPR EHENS KAVYA METAB OLIC PANL BUN 12 mg/dL (6-20) Not Available [facility] [address] [place], [address], 02/05/2023 17:19:42 02/06/20 23 02/05/2023 COMPR EHENS KAVYA METAB OLIC PANL creatinine 0.7 mg/dL (0.5-1 .0) Not Available [facility] [address] [place], [address], 02/05/2023 17:19:42 02/06/20 23 02/05/2023 COMPR EHENS KAVYA METAB OLIC PANL sodium 136 mmol/ L (133-1 45) Not Available [facility] [address], [address], 02/05/2023 17:19:42 02/06/20 23 02/05/2023 COMPR EHENS KAVYA METAB OLIC PANL potassium 4.2 mmol/ L (3.6-5 .2) Not Available [facility] [address], [address], 02/05/2023 17:19:42 02/06/20 23 02/05/2023 COMPR EHENS KAVYA METAB OLIC PANL chloride 97 mmol/ L (98-10 7) low Not Available [facility] [address] [place], [address], 02/05/2023 17:19:42 02/06/20 23 02/05/2023 COMPR EHENS KAVYA METAB OLIC PANL bicarbonate 26 mmol/ L (22-29 ) Not Available [facility] [address] [place], [address], 02/05/2023 17:19:42 02/06/20 23 02/05/2023 COMPR EHENS KAVYA METAB OLIC PANL anion gap 13 (4-17) Not Available [facility] [address], [address], 02/05/2023 17:19:42 02/06/20 23 02/05/2023 COMPR EHENS KAVYA METAB OLIC PANL albumin 4.9 gm/dL (3.4-4 .8) high Not Available [facility] [address], [address], 02/05/2023 17:19:42 02/06/20 23 02/05/2023 COMPR EHENS KAVYA METAB OLIC PANL calcium 10.4 mg/dL (8.6-1 0.5) Not Available [facility] [address] [place], [address], 02/05/2023 17:19:42 02/06/20 23 02/05/2023 COMPR EHENS KAVYA METAB OLIC PANL bilirubin,to олег 0.7 mg/dL (0-1.2 ) Not Available [facility] [address] [place], [address], 02/05/2023 17:19:42 02/06/20 23 02/05/2023 COMPR EHENS KAVYA METAB OLIC PANL total protein 7.7 gm/dL (6.2-8 .2) Not Available [facility] [address] [place], [address], 02/05/2023 17:19:42 02/06/20 23 02/05/2023 COMPR EHENS KAVYA METAB OLIC PANL Ag ratio 1.8 Not Available [facility] [address] [place], [address], 02/05/2023 17:19:42 02/06/20 23 02/05/2023 COMPR EHENS KAVYA METAB OLIC PANL AST 111 U/L (0-32) high Not Available [facility] [address] [place], [address], 02/05/2023 17:19:42 02/06/20 23 02/05/2023 COMPR EHENS KAVYA METAB OLIC PANL alk phos 70 U/L (35-10 4) Not Available [facility] [address] [place], [address], 02/05/2023 17:19:42 02/06/20 23 02/05/2023 COMPR EHENS KAVYA METAB OLIC PANL ALT 63 U/L (0-33) high Not Available [facility] [address] [place], [address], 02/05/2023 17:19:42 02/06/20 23 02/05/2023 COMPR EHENS KAVYA METAB OLIC PANL estimated GFR creatinine 94 mL/mi n/1.7 3_M2 Creat inine based estim ated glome rular filtr ation (eGFR ) in adult s is calcu lated using the Natio nal Kidne y Found ation recom ronda d 2020 CKD-E PI equat ion. Estim ates GFR from serum creat inine , age and sex. Not Available [facility] [address] [place], [address], 02/05/2023 17:19:42 02/06/20 23 02/05/2023 LIPID PANEL cholesterol, total 188 mg/dL (<200) Not Available [facility] [address] [place], [address], 02/05/2023 17:19:43 02/06/20 23 02/05/2023 LIPID PANEL triglyceride 287 mg/dL (<150) high Not Available [facility] [address], [address], 02/05/2023 17:19:43 02/06/20 23 02/05/2023 LIPID PANEL HDL chol 42 mg/dL (>39) Not Available [facility] [address], [address], 02/05/2023 17:19:43 02/06/20 23 02/05/2023 LIPID PANEL LDL cholesterol, calculated 89 mg/dL (0-130 ) Not Available [facility] [address] [place], [address], 02/05/2023 17:19:43 02/06/20 23 02/05/2023 LIPID PANEL non HDL cholesterol (calc) 146 mg/dL (<160) Not Available [facility] [address], [address], 02/05/2023 17:19:43 02/06/20 23 02/05/2023 TSH WITH REFLE X TO FT4 TSH 5.09 uIU/m L (0.4-4 .2) high Not Available [facility] [address], [address], 02/05/2023 17:24:21 02/06/20 23 02/05/2023 FREE T4 free T4 1.18 NG/dL (0.70- 1.80) Not Available [facility] [address], [address], 02/05/2023 18:03:32 02/06/20 23 02/05/2023 hemog lobin A1C, finge rstic k A1C 6.4 % 4-6 Not Available In-Office Order Internal Use Only DO Not Attach Compendium DO Not Attach Compendium, Do Not Delete/merge, [id number] 02/05/2023 08:29:53 06/23/20 23 06/23/2023 hemog lobin A1C, finge rstic k A1C 6.0 % 4-6 normal Not Available In-Office Order Internal Use Only DO Not Attach Compendium DO Not Attach Compendium, Do Not Delete/merge, [id number] 06/23/2023 15:57:06 07/29/20 24 07/30/2024 CBC WITH DIFFE ANNEMARIETI AL/PL ATELE T WBC 8.1 x10e3 /uL 3.4-10 .8 normal Not Available [facility] ([facility]) [address] [facility], [place], [address], 07/31/2024 08:06:55 07/29/20 24 07/30/2024 CBC WITH DIFFE RENTI AL/PL ATELE T RBC 4.51 x10e6 /uL 3.77-5 .28 normal Not Available [facility] ([facility]) [address] [place], [address], 07/31/2024 08:06:55 07/29/20 24 07/30/2024 CBC WITH DIFFE RENTI AL/PL ATELE T hemoglobin 13.8 g/dL 11.1-1 5.9 normal Not Available [facility] ([facility]) [address] [place], [address], 07/31/2024 08:06:55 07/29/20 24 07/30/2024 CBC WITH DIFFE RENTI AL/PL ATELE T hematocrit 41.3 % 34.0-4 6.6 normal Not Available [facility] ([facility]) [address] [place], [address], 07/31/2024 08:06:55 07/29/20 24 07/30/2024 CBC WITH DIFFE RENTI AL/PL ATELE T MCV 92 fL 79-97 normal Not Available [facility] ([facility]) [address] [place], [address], 07/31/2024 08:06:55 07/29/20 24 07/30/2024 CBC WITH DIFFE RENTI AL/PL ATELE T MCH 30.6 pg 26.6-3 3.0 normal Not Available [facility] ([facility]) [address] [place], [address], 07/31/2024 08:06:55 07/29/20 24 07/30/2024 CBC WITH DIFFE RENTI AL/PL ATELE T MCHC 33.4 g/dL 31.5-3 5.7 normal Not Available [facility] ([facility]) [address] [place], [address], 07/31/2024 08:06:55 07/29/20 24 07/30/2024 CBC WITH DIFFE RENTI AL/PL ATELE T RDW 13.3 % 11.7-1 5.4 Not Available [facility] ([facility]) [address] [facility], [place], [address], 07/31/2024 08:06:55 07/29/20 24 07/30/2024 CBC WITH DIFFE RENTI AL/PL ATELE T platelets 204 x10e3 /uL 150-45 0 normal Not Available [facility] ([facility]) [address] [facility], [place], [address], 07/31/2024 08:06:55 07/29/20 24 07/30/2024 CBC WITH DIFFE RENTI AL/PL ATELE T neutrophils 55 % not estab. normal Not Available [facility] ([facility]) [address] [facility], [place], [address], 07/31/2024 08:06:55 07/29/20 24 07/30/2024 CBC WITH DIFFE RENTI AL/PL ATELE T lymphs 35 % not estab. normal Not Available [facility] ([facility]) [address] [facility], [place], [address], 07/31/2024 08:06:55 07/29/20 24 07/30/2024 CBC WITH DIFFE RENTI AL/PL ATELE T monocytes 7 % not estab. normal Not Available [facility] ([facility]) [address] [facility], [place], [address], 07/31/2024 08:06:55 07/29/20 24 07/30/2024 CBC WITH DIFFE RENTI AL/PL ATELE T eos 2 % not estab. normal Not Available [facility] ([facility]) [address] [facility], [place], [address], 07/31/2024 08:06:55 07/29/20 24 07/30/2024 CBC WITH DIFFE RENTI AL/PL ATELE T basos 1 % not estab. normal Not Available [facility] ([facility]) [address] [place], [address], 07/31/2024 08:06:55 07/29/20 24 07/30/2024 CBC WITH DIFFE RENTI AL/PL ATELE T immature cells APPLICATION SUPPORT LEAD Not Available [facility] ([facility]) [address] [place], [address], 07/31/2024 08:06:55 07/29/20 24 07/30/2024 CBC WITH DIFFE RENTI AL/PL ATELE T neutrophils (absolute) 4.5 x10e3 /uL 1.4-7. 0 normal Not Available [facility] ([facility]) [address] [place], [address], 07/31/2024 08:06:55 07/29/20 24 07/30/2024 CBC WITH DIFFE RENTI AL/PL ATELE T lymphs (absolute) 2.9 x10e3 /uL 0.7-3. 1 normal Not Available [facility] ([facility]) [address] [place], [address], 07/31/2024 08:06:55 07/29/20 24 07/30/2024 CBC WITH DIFFE RENTI AL/PL ATELE T monocytes(ab solute) 0.5 x10e3 /uL 0.1-0. 9 normal Not Available [facility] ([facility]) [address] [place], [address], 07/31/2024 08:06:55 07/29/20 24 07/30/2024 CBC WITH DIFFE RENTI AL/PL ATELE T eos (absolute) 0.1 x10e3 /uL 0.0-0. 4 normal Not Available [facility] ([facility]) [address] [place], [address], 07/31/2024 08:06:55 07/29/20 24 07/30/2024 CBC WITH DIFFE RENTI AL/PL ATELE T baso (absolute) 0.1 x10e3 /uL 0.0-0. 2 normal Not Available [facility] ([facility]) [address] [facility], [place], [address], 07/31/2024 08:06:55 07/29/20 24 07/30/2024 CBC WITH DIFFE RENTI AL/PL ATELE T immature granulocytes 0 % not estab. Not Available [facility] ([facility]) [address] [facility], [place], [address], 07/31/2024 08:06:55 07/29/20 24 07/30/2024 CBC WITH DIFFE RENTI AL/PL ATELE T immature grans (abs) 0.0 x10e3 /uL 0.0-0. 1 Not Available [facility] ([facility]) [address] [facility], [place], [address], 07/31/2024 08:06:55 07/29/20 24 07/30/2024 CBC WITH DIFFE RENTI AL/PL ATELE T NRBC APPLICATION SUPPORT LEAD Not Available [facility] ([facility]) [address] [facility], [place], [address], 07/31/2024 08:06:55 07/29/20 24 07/30/2024 CBC WITH DIFFE RENTI AL/PL ATELE T hematology comments: APPLICATION SUPPORT LEAD Not Available [facility] ([facility]) [address] [facility], [place], [address], 07/31/2024 08:06:55 07/29/20 24 07/29/2024 COMP. METAB OLIC PANEL (14) glucose 145 mg/dL 70-99 above high normal Not Available [facility] ([facility]) [address] [facility], [place], [address], 07/31/2024 08:06:56 07/29/20 24 07/29/2024 COMP. METAB OLIC PANEL (14) BUN 15 mg/dL 8-27 normal Not Available [facility] ([facility]) [address] [place], [address], 07/31/2024 08:06:56 07/29/20 24 07/29/2024 COMP. METAB OLIC PANEL (14) creatinine 0.81 mg/dL 0.57-1 .00 normal Not Available [facility] ([facility]) [address] [facility], [place], [address], 07/31/2024 08:06:56 07/29/20 24 07/29/2024 COMP. METAB OLIC PANEL (14) eGFR 83 mL/mi n/1.7 3 >59 normal Not Available [facility] ([facility]) [address] [place], [address], 07/31/2024 08:06:56 07/29/20 24 07/29/2024 COMP. METAB OLIC PANEL (14) BUN/creatini ne ratio 19 12-28 normal Not Available [facility] ([facility]) [address] [place], [address], 07/31/2024 08:06:56 07/29/20 24 07/29/2024 COMP. METAB OLIC PANEL (14) sodium 140 mmol/ L 134-14 4 normal Not Available [facility] ([facility]) [address] [place], [address], 07/31/2024 08:06:56 07/29/20 24 07/29/2024 COMP. METAB OLIC PANEL (14) potassium 4.3 mmol/ L 3.5-5. 2 normal Not Available [facility] ([facility]) [address] [place], [address], 07/31/2024 08:06:56 07/29/20 24 07/29/2024 COMP. METAB OLIC PANEL (14) chloride 100 mmol/ L 96-106 normal Not Available [facility] ([facility]) [address] [facility] [place], [address], 07/31/2024 08:06:56 07/29/20 24 07/29/2024 COMP. METAB OLIC PANEL (14) carbon dioxide, total 24 mmol/ L 20-29 normal Not Available [facility] ([facility]) [address] [facility] [place] [place], [address], 07/31/2024 08:06:56 07/29/20 24 07/29/2024 COMP. METAB OLIC PANEL (14) calcium 10.0 mg/dL 8.7-10 .3 normal Not Available [facility] ([facility]) [address] [facility] [place], [address], 07/31/2024 08:06:56 07/29/20 24 07/29/2024 COMP. METAB OLIC PANEL (14) protein, total 7.8 g/dL 6.0-8. 5 normal Not Available [facility] ([facility]) [address] [facility] [place], [address], 07/31/2024 08:06:56 07/29/20 24 07/29/2024 COMP. METAB OLIC PANEL (14) albumin 4.5 g/dL 3.8-4. 9 normal Not Available [facility] ([facility]) [address] [facility] [place], [address], 07/31/2024 08:06:56 07/29/20 24 07/29/2024 COMP. METAB OLIC PANEL (14) globulin, total 3.3 g/dL 1.5-4. 5 Not Available [facility] ([facility]) [address] [facility] [place], [address], 07/31/2024 08:06:56 07/29/20 24 07/29/2024 COMP. METAB OLIC PANEL (14) bilirubin, total 0.4 mg/dL 0.0-1. 2 normal Not Available [facility] ([facility]) [address] [place], [address], 07/31/2024 08:06:56 07/29/20 24 07/29/2024 COMP. METAB OLIC PANEL (14) alkaline phosphatase 67 IU/L 44-121 normal Not Available [facility] ([facility]) [address] [place], [address], 07/31/2024 08:06:56 07/29/20 24 07/29/2024 COMP. METAB OLIC PANEL (14) AST (SGOT) 68 IU/L 0-40 above high normal Not Available [facility] ([facility]) [address] [place], [address], 07/31/2024 08:06:56 07/29/20 24 07/29/2024 COMP. METAB OLIC PANEL (14) ALT (SGPT) 48 IU/L 0-32 above high normal Not Available [facility] ([facility]) [address] [place], [address], 07/31/2024 08:06:56 07/29/20 24 07/29/2024 LIPID PANEL cholesterol, total 183 mg/dL 100-19 9 normal Not Available [facility] ([facility]) [address] [place], [address], 07/31/2024 08:06:56 07/29/20 24 07/29/2024 LIPID PANEL triglyceride s 200 mg/dL 0-149 above high normal Not Available [facility] ([facility]) [address] [place], [address], 07/31/2024 08:06:56 07/29/20 24 07/29/2024 LIPID PANEL HDL cholesterol 46 mg/dL >39 normal Not Available [facility] ([facility]) [address] [place], [address], 07/31/2024 08:06:56 07/29/20 24 07/29/2024 LIPID PANEL VLDL cholesterol roseann 34 mg/dL 5-40 Not Available [facility] ([facility]) [address] [place], [address], 07/31/2024 08:06:56 07/29/20 24 07/29/2024 LIPID PANEL LDL chol calc ([facility]) 103 mg/dL 0-99 above high normal Not Available [facility] ([facility]) [address] [facility], [place], [address], 07/31/2024 08:06:56 07/29/20 24 07/29/2024 LIPID PANEL LDL calc comment: APPLICATION SUPPORT LEAD Not Available [facility] ([facility]) [address] [facility], [place], [address], 07/31/2024 08:06:56 07/29/20 24 07/31/2024 ALBUM IN/CR EATIN INE RATIO ,URIN E creatinine, urine 61.1 mg/dL not estab. normal Not Available [facility] ([facility]) [address] [facility], [place], [address], 07/31/2024 08:06:57 07/29/20 24 07/31/2024 ALBUM IN/CR EATIN INE RATIO ,URIN E albumin, urine 17.2 ug/mL not estab. Not Available [facility] ([facility]) [address] [facility], [place], [address], 07/31/2024 08:06:57 07/29/20 24 07/31/2024 ALBUM IN/CR EATIN INE RATIO ,URIN E alb/creat ratio 28 mg/g_ creat 0-29 Tiarra l: 0 - 29 Moder ately incre ased: 30 - 300 Sever shelby incre ased: >300 Not Available [facility] ([facility]) [address] [place], [address], 07/31/2024 08:06:57 07/29/20 24 07/30/2024 HEMOG LOBIN A1C hemoglobin A1C 8.1 % 4.8-5. 6 above high normal Predi abete s: 5.7 - 6.4 Diabe jay jay: >6.4 Glyce cinthya contr ol for adult s with diabe jay jay: <7.0 Not Available [facility] ([facility]) [address] [facility], [place], [address], 07/31/2024 08:06:58 05/18/20 23 05/18/2023 US, head + neck, soft tissu e US Soft Tissue Head/N monica Reason : 2 palpab le areas in the laundry folder ior neck. COMPAR DAYAN: None FINDIN GS: High-r esolut ion, linear array imagin g of the superf icial soft tissue s of the laundry folder ior neck was perfor med in the area of the patien t's sympto ms. In the laundry folder ior lower neck at the midlin e there is a 5.5 x 6.9 x 2.0 cm ovoid mass within the subcut aneous soft tissue s, the echote xture is simila r to adjace nt subcut aneous fat except centra lly there is a region of increa sed echoge nicity . Additi onal left laundry folder ior neck mass measur ing 2.6 x 2.9 x 0.8 cm, simila r echoge nicity to adjace nt fat. IMPRES REGLA: There are 2 adjace nt masses in the laundry folder ior neck with imagin g charac terist ics of a lipoma tous tumor such as a lipoma . The larger mass has some centra l increa sed echoge nicity . Findin gs could reflec t a lipoma or atypic al lipoma tous tumor. MRI of the neck with and withou t contra st is recomm ended for furthe r charac teriza tion. An action able kim lemon (Jose blankenship) has been commun icated via the [employer] Action able Findin gs system on 023 1:44 PM, [place] [id number]. WSN: [id number] Orderi ng Physic sandi: Brandy CHADWICK, Ann Marie Kruse Dictat ed By: Maico Bustamante MD Dictat ed Date/T enedina: 1:44 pm Review ed By: Kiesha harrell MD, Maico Blankenship Signed By: Maico Bustamante MD Signed Date/T enedina: 1:44 pm Transc ribed By: DAVID Transc ribed Date/T enedina: 1:40 pm Patien t Class: Outpat ient [email or web address] [facility] (Outpt Imaging) [address], [place], [address], 05/20/2023 13:42:16 06/25/20 23 12/06/2022 MAMMO , scree anushka, digit al, bilat eral No observ ation record ed. [email or web address] Not Available 06/25 14:14:30 07/18/20 24 01/02/2024 MAMMO , scree anushka, digit al, bilat eral No observ ation record ed. [email or web address] [facility] [address] [facility] [address], [place], [address], 07/18/2024 11:44:19 Result Notes None recorded. Problems Name Problem SNOMED Code Status Onset Date Resolution Date Notes Provider Name and Address Organization Details Recorded Time Acute sinusiti s 46584438 Completed 201203/07/2014 RECORDED 04/19/20 13 9:49AM BY NETTA PARRISH, ANNOTATI ON/ADDEN DUM MIMI Gregory [facility] 6 10:25:59 Adult health examinat ion Completed 201307/25/2014 MIMI Gregory [facility] 6 10:25:59 Screenin g for malignan t neoplasm of breast Completed 200803/07/2014 RECORDED 07/09/20 09 12:21PM BY BERE GREEN MD, ANNOTATI ON/ADDEN DUM MIMI Gregory [facility] 6 10:25:59 Screenin g for malignan t neoplasm of colon Completed 201303/07/2014 RECORDED 10/20/19 14 2:12PM BY BURTON PALMA MA, ANNOTATI ON/ADDEN DUM Sola Lili-MIMI [place], [facility] 6 10:25:59 Cough 55068625 Completed 201312/01/2015 Sola MIMI Platt, [facility] 6 10:25:59 Tobacco dependen ce syndrome 71938817 Completed 201203/07/2014 RECORDED 12/29/19 13 8:41AM BY MARCELLE CAMACHO ON/ADDEN DUM Sola Lili-MIMI [place], [facility] 6 10:25:59 Hyperhid rosis 509999344 Completed 201303/07/2014 RECORDED 10/11/19 14 8:58AM BY MARCELLE CAMACHO ON/ADDEN DUM Sola Lili-MIMI [place], [facility] 6 10:25:59 Disorder of sweat gland 20074015 Completed 201203/07/2014 RECORDED 12/08/19 13 8:30AM BY HERMINIA BLANCO MA, ANNOTATI ON/ADDEN DUM Sola Lili-MIMI [place], [facility] 6 10:25:59 Effect of exposure to external cause 71786178 Completed 201203/07/2014 RECORDED 12/08/19 13 8:30AM BY HERMINIA BLANCO MA, ANNOTATI ON/ADDEN DUM Sola Lili-MIMI [place], [facility] 6 10:25:59 Elevated blood-pr essure reading without diagnosi s of hyperten regla 274989953 Completed 201203/07/2014 RECORDED 12/29/19 13 8:41AM BY MARCELLE CAMACHO ON/ADDEN DUM MIMI Gregory, [facility] 6 10:25:59 Influenz a vaccine needed 58764157394 06 Completed 201203/07/2014 RECORDED 05/19/20 13 8:58AM BY BERE GREEN MD, OFFICE VISIT MIMI Gregory, [facility] 6 10:25:59 Tobacco user 322662887 Active 2013 Not Available [facility] 2 13:54:49 History of clinical finding in subject 274409339 Completed 201207/25/2014 MIMI Gregory, [facility] 6 10:25:59 Tobacco user 225097586 Completed 201203/07/2014 RECORDED 04/19/20 13 9:40AM BY EDDIE EL MA, ANNOTATI ON/ADDEN DUM MIMI Gregory, [facility] 6 10:25:59 Headache 39901590 Completed 201312/01/2015 MIMI Gregory, [facility] 6 10:25:59 Hearing loss 02176152 Active 2013 Has hearing aids and is followed by Dr Chery Not Available [facility] 2 13:54:49 [facility] hyperten regla 19645618 Active 2013 well-con trolled with meds Not Available [facility] 2 13:54:49 [facility] hyperten regla 68640433 Completed 201203/07/2014 RECORDED 04/08/20 13 2:23PM BY HERMINIA BLANCO MA, ANNOTATI ON/ADDEN DUM MIMI Gregory, [facility] 6 10:25:59 Insect bite to leg - nonvenom ous 097671258 Completed 201203/07/2014 RECORDED 12/08/19 13 8:30AM BY HERMINIA BLANCO MA, MARCELLE ON/ADDEN DUM MIMI Gregory, [facility] 6 10:25:59 Obesity 495065576 Active 2013 Not Available [facility] 2 13:54:49 Adult health examinat ion Completed 201203/07/2014 RECORDED 12/08/19 13 8:30AM BY HERMINIA BLANCO MA, MARCELLE ON/ADDEN DUM MIMI Gregory, [facility] 6 10:25:59 Administ ration of diphther ia, pertussi s, and tetanus vaccine Completed 201203/07/2014 RECORDED 04/08/20 13 2:22PM BY HERMINIA BLANCO MA, MARCELLE ON/ADDEN DUM MIMI Gregory, [facility] 6 10:25:59 Exposure to organism Completed 201203/07/2014 IMPRESSI ON: DUE FOR REPEAT TEST. FIRST TESTED 12/09/12; RECORDED 05/19/20 13 8:32AM BY BURTON PALMA MA, MARCELLE ON/ADDEN DUM MIMI Gregory, [facility] 6 10:25:59 Candidal vulvovag initis 94171331 Completed 201203/07/2014 RECORDED 12/08/19 13 8:30AM BY HERMINIA BLANCO MA, MARCELLE ON/ADDEN DUM MIMI Gregory, [facility] 6 10:25:59 Acute sinusiti s 24313606 Completed 201203/27/2014 RECORDED 04/19/20 13 9:49AM BY NETTA PARRISH, MARCELLE ON/ADDEN DUM MIMI Gregory, [facility] 6 10:25:59 Screenin g for malignan t neoplasm of breast Completed 200803/27/2014 RECORDED 07/09/20 09 12:21PM BY BERE GREEN MD, ANNOTATI ON/ADDEN DUM Sola Lili-Ma ttMIMI gipson, [facility] 6 10:25:59 Screenin g for malignan t neoplasm of colon Completed 201303/27/2014 RECORDED 10/20/19 14 2:12PM BY BURTON PALMA MA, ANNOTATI ON/ADDEN DUM Sola Lili-Ma MIMI arreguin, [facility] 6 10:25:59 Tobacco dependen ce syndrome 37872716 Completed 201203/27/2014 RECORDED 12/29/19 13 8:41AM BY PATRICK CAMACHOATI ON/ADDEN DUM Sola Lili-Ma MIMI arreguin, [facility] 6 10:25:59 Hyperhid rosis 610621737 Completed 201303/27/2014 RECORDED 10/11/19 14 8:58AM BY PATRICK CAMACHOATI ON/ADDEN DUM [facility] 6 10:25:59 Disorder of sweat gland 73391255 Completed 201203/27/2014 RECORDED 12/08/19 13 8:30AM BY HERMINIA BLANCO MA, ANNOTATI ON/ADDEN DUM Sola Lili-MIMI [place], [facility] 6 10:25:59 Effect of exposure to external cause 45664873 Completed 201203/27/2014 RECORDED 12/08/19 13 8:30AM BY HERMINIA BLANCO MA, ANNOTATI ON/ADDEN DUM Sola Lili-Ma MIMI arreguin, [facility] 6 10:25:59 Elevated blood-pr essure reading without diagnosi s of hyperten regla 614224310 Completed 201203/27/2014 RECORDED 12/29/19 13 8:41AM BY SATHYA STALEY I, ANNOTATI ON/ADDEN DUM MIMI Gregory, [facility] 6 10:25:59 Influenz a vaccine needed 68272551265 06 Completed 201203/27/2014 RECORDED 05/19/20 13 8:58AM BY BERE GREEN MD, OFFICE VISIT MIMI Gregory, [facility] 6 10:25:59 Insect bite to leg - nonvenom ous 457152742 Completed 201203/27/2014 RECORDED 12/08/19 13 8:30AM BY HERMINIA BLANCO MA, MARCELLE ON/ADDEN DUM MIMI Gregory, [facility] 6 10:25:59 Administ ration of diphther ia, pertussi s, and tetanus vaccine Completed 201203/27/2014 RECORDED 04/08/20 13 2:22PM BY HERMINIA BLANCO MA, MARCELLE ON/ADDEN DUM [facility] 6 10:25:59 Exposure to organism Completed 201203/27/2014 IMPRESSI ON: DUE FOR REPEAT TEST. FIRST TESTED 12/09/12; RECORDED 05/19/20 13 8:32AM BY BURTON PALMA MA, MARCELLE ON/ADDEN DUM MIMI Gregory, [facility] 6 10:25:59 Candidal vulvovag initis 21736702 Completed 201203/27/2014 RECORDED 12/08/19 13 8:30AM BY HERMINIA BLANCO MA, MARCELLE ON/ADDEN DUM [facility] 6 10:25:59 Verruca plantari s 69295012 Active Resolved ; seen by podiatry Not Available [facility] 2 13:54:49 Hyperhid rosis 599262191 Active Uses a solution which helps Not Available [facility] 2 13:54:49 Acute sinusiti s 35914996 Completed 12/01/2015 Sola arreguin [place] [facility], [facility] 6 10:25:59 Hearing aid worn Active left Not Available [facility] 2 13:54:50 Acute asthma 009184114 Completed 01/01/2021 Removal Reason: resolved Bere Hudson MD [address], [place], [address] , [facility] 1 17:19:46 Anxiety 64996726 Active 2016 Not Available [facility] 2 13:54:50 Excessiv e sweating 88626790 Completed 201701/01/2021 Removal Reason: duplicat e Bere Hudson MD [address], [place], [address] , [facility] 1 17:20:03 Type 2 diabetes mellitus without complica tion 846779696 Completed 201806/03/2019 Bere Hduson MD [address], [place], [address] , [facility] 1 13:25:11 Uncontro lled type 2 diabetes mellitus 814921792 Completed 201801/01/2021 Removal Reason: controll ed Bere Hudson MD [address], [place], [address] , [facility] 1 13:25:02 Type 2 diabetes mellitus without complica tion 895651709 Active 2020 Not Available [facility] 2 13:54:50 Allergic rhinitis 09091690 Active 2020 Not Available [facility] 2 13:54:49 Pain of right wrist 35105966525 9100 Active 2021 Right [facility] arthriti s. Seen by hand surgeon and currentl y being treated with meds and splintin g. Not Available [facility] 2 13:54:50 Fatigue 20960733 Active 2022 Clyde Nava, [facility] [address] [facility] [place] [place] [address], [place], [address] , [facility] 3 08:52:42 Gastroes ophageal reflux disease 396154025 Active 2022 Clyde Nava, [facility] [address] [facility] [place] [place] [address], [place], [address] , [facility] 3 08:54:46 Blephari tis 29226920 Active 2022 Clyde Nava, [facility] [address] [address], [place], [address] , [facility] 3 08:55:31 Lipoma of skin 117269407 Active 2022 Clyde Nava, [facility] [address] [address], [place], [address] , [facility] 3 13:38:23 History of SARS-CoV -2 38365596811 0227688 Active 2020 Moderate symptoms . Did not need to go to ER. Bere Hudson MD [address] [address], [place], [address] , [facility] 3 15:55:55 Problem Notes None recorded. Procedures Surgical History Date Name Laterality Status Provider Name and Address Organization Details Recorded Time 02/23/20 24 Colonoscopy completed Minal Barbour [facility] 03/10/2024 11:35:11 01/02/20 24 Most Recent Mammogram completed Nara Valero [facility] 07/18/2024 11:44:17 06/23/20 23 Diabetic Foot Exam (Monofilament) completed Bere Hudson MD [address] [facility], [place], [address], [facility] 06/24/2023 08:34:57 01/24/20 22 Diabetic Foot Exam (Monofilament) completed Bere Hudson MD [address] [facility] [address] [facility], [place], [address], [facility] 01/23/2022 13:00:24 01/02/20 21 Diabetic Foot Exam (Monofilament) completed Bere Hudson MD [address] [facility] [address] [facility], [place], [address], [facility] 01/01/2021 13:27:25 07/10/20 20 Diabetic Foot Exam (Monofilament) completed Bere Hudson MD [address] [address], [place], [address], [facility] 07/11/2020 07:11:10 10/01/19 20 Mammogram Screening completed Ashley Davis [facility] 07/27/2020 15:08:37 07/07/20 19 Diabetic Foot Exam (Monofilament) completed Bere Hudson MD [address], [address], [facility] 07/07/2019 14:17:27 09/29/19 19 Date of Last Pap Smear completed Heidy Denney [facility] 07/27/2019 13:19:54 06/12/20 14 Date of Last Colonoscopy completed Sola durbin [place] [facility] [place] [facility] 08/07/2017 15:14:15 08/17/18 78 Anesth ear surgery completed Sola durbin [place] [facility] [place] 12/01/2015 10:25:32 Imaging Results Imaging Date Name Status LastModified by Organiz ation Details LastModified Time 05/18/2023 US, head + neck, soft tissue completed [email or web address] [facility] (Out[facility] Imaging) [address] [facility], [place], [address], 05/20/2023 13:42:16 12/06/2022 MAMMO, screening, digital, bilateral completed [email or web address] Information not available 06/25/2023 14:14:30 01/02/2024 MAMMO, screening, digital, bilateral completed [email or web address] [facility] [address], [address], 07/18/2024 11:44:19 Procedure Notes None recorded. Medical Equipment None Reported. Allergies Allergen ID Allergen Name Allergen Category Reaction Reaction Severity Criticality Documentation Date Start Date Code Code System Note Provider Name and Address Organization Details Recorded Time 45811 Substance with sulfonami de structure and antibacte rial mechanism of action (substanc e) medicatio n hives Not available Not available 05/08/20142013 18313 8003 SNOMED Karolyn Barreto [facility] 5 15:55:37 41854 Bactrim medicatio n hives Not available Not available 05/08/2014 19813 9 RxNorm Sathya Green [facility] 4 08:56:36 04450 sulfadiaz ine medicatio n Not available Not available Not available 12/05/2019 92721 RxNorm Heidydeep Denney [facility] 0 15:12:00 Medications Name Sig Start Date Stop Date Status Note LastModified by Organization Details LastModified Time freestyle mis lite 4 x daily active Not Available Not Available No t Available valacyclo vir hcl 500 mg tabs active Not Available Not Available Not Available freestyle mis lancets 4 x daily active Not Available Not Available No t Available drysol 20 % soln 09/17 completed Not Available Not Available Not Available azithromy priscila 250 mg tabs active Not Available Not Available Not Available irbesarta n 150 mg tabs active Not Available Not Available Not Available losartan 50 mg tablet TAKE 1 TABLET BY MOUTH EVERY DAY active Not Available Not Available No t Available cyclobenz aprine 10 mg tablet active Not Available Not Available No t Available amoxicill in 500 mg capsule 07/10 completed Not Available Not Available Not Available doxycycli ne hyclate 100 mg capsule Take 1 capsule twice a day by oral route for 7 days. 07/07 completed Not Available Not Available Not Available nicotine 14 mg/24 hr daily transderm al patch APPLY 1 PATCH EVERY DAY 07/10 completed Not Available Not Available Not Available ciproflox acin 750 mg tablet TAKE 1 TABLET BY MOUTH TWICE A DAY 07/13 completed Not Available Not Available Not Available azithromy priscila 250 mg tablet TAKE 2 TABLETS BY MOUTH TODAY, THEN TAKE 1 TABLET DAILY FOR 4 DAYS 07/15 completed Not Available Not Available Not Available fluconazo le 150 mg tablet LASHELL AND PRN 03/12 completed RECORDED 03/15/20 07 9:57AM BY BERE GREEN MD, MEDICATI ON AUTO-JENNIFER CTIVATIO N; Not Available Not Available Not Available prednison e 20 mg tablet TAKE 1/2 TABLET (10 MG TOTAL) BY MOUTH DAILY FOR 5 DAYS 11/08 completed Not Available Not Available Not Available AeroChamb er Plus-Medi um Mask DIRECTED 06/30 completed RECORDED 06/30/20 11 9:46AM BY VINCENT PONCE, MARCELLE ON/ADDEN DUM; Not Available Not Available Not Available Motrin IB 200 mg tablet Take 3 tablets every 6 hours by oral route as needed. active Not Available Not Available No t Available chlorthal idone 25 mg tablet DAILY 12/14 completed RECORDED 12/15/19 14 8:48AM BY BERE GREEN MD, ANNOTATI ON/ADDEN DUM; Not Available Not Available Not Available amlodipin e 5 mg tablet Take 1 tablet every day by oral route. 07/20 completed Not Available Not Available Not Available valacyclo vir 500 mg tablet 12/04 completed Not Available Not Available Not Available omeprazol e 40 mg capsule,d elayed release TAKE 1 CAPSULE BY MOUTH EVERY DAY DIRECTED 2023 active Not Available Not Available Not Avai lable doxycycli ne monohydra te 100 mg tablet TAKE 1 TABLET (ORAL) 2 TIMES PER DAY FOR 7 DAYS FOR INFECTIO N 02/05 completed Not Available Not Available Not Available Nicotrol 10 mg inhalatio n cartridge 02/05 completed Not Available Not Available Not Available losartan 100 mg-hydroc hlorothia zide 25 mg tablet TAKE 1 TABLET BY MOUTH EVERY DAY 2018 active Not Available Not Available Not Avai lable ofloxacin 0.3 % ear drops APPLY 4 DROP INTO LEFT EAR TWICE A DAY 11/08 completed Not Available Not Available Not Available amoxicill in 875 mg tablet TAKE 1 TABLET BY MOUTH TWICE A DAY FOR 7 DAYS 07/13 completed Not Available Not Available Not Available lorazepam 0.5 mg tablet Take 1 tablet every day by oral route as needed for 30 days. 07/06 completed Not Available Not Available Not Available ciproflox acin 0.3 % eye drops ADMINIST ER 1 DROP TO BOTH EYES 4 (FOUR) TIMES A DAY FOR 7 DAYS 07/13 completed Not Available Not Available Not Available dexametha sone 1 mg tablet 05/04 completed Not Available Not Available Not Available Angela 180 mg tablet Take 1 tablet every day by oral route. active Not Available Not Available No t Available amlodipin e 10 mg tablet TAKE 1 TABLET BY MOUTH EVERY DAY DIRECTED 2023 active Not Available Not Available Not Avai lable benzonata te 100 mg capsule SWALLOW WHOLE TAKE 1 CAPSULE 3 TIMES A DAY NEEDED *DO NOT BREAK CHEW, DISSOLVE , CUT, OR CRUSH* 11/08 completed Not Available Not Available Not Available cephalexi n 500 mg capsule Take 1 capsule every day by oral route for 7 days. 06/01 completed Not Available Not Available Not Available metformin 1,000 mg tablet TAKE 1 TABLET BY MOUTH 2 TIMES A DAY BEFORE BREAKFAS T AND NICOLETTEIN STR:TAKE WITH FOOD active Not Available Not Available No t Available neomycin- polymyxin -dexameth 3.5 mg/mL-10, 000 unit/mL-0 .1% eye drops PLACE 2 DROPS INTO THE AFFECTED EYE 3 TIMES DAILY FOR 7 DAYS 02/05 completed Not Available Not Available Not Available irbesarta n 300 mg-hydroc hlorothia zide 12.5 mg tablet Take 1 tablet every day by oral route. 09/21 completed Not Available Not Available Not Available prednison e 50 mg tablet Take 1 tablet every day by oral route for 7 days. 05/07 completed Not Available Not Available Not Available Advair Diskus 250 mcg-50 mcg/dose powder for inhalatio n Inhale 1 puff twice a day by inhalati on route. 01/04 completed Not Available Not Available Not Available Drysol Dab-O-Mat ic 20 % topical solution Apply twice a week 06/20 completed Not Available Not Available Not Available lisinopri l 5 mg tablet DAILY 04/08 completed RECORDED 04/08/20 13 3:02PM BY NY Costello MD, OFFICE VISIT; Not Available Not Available Not Available hydrochlo rothiazid e 25 mg tablet Take 1 tablet every day by oral route. 02/05 completed Not Available Not Available Not Available irbesarta n 150 mg tablet 1 daily 05/07 completed Not Available Not Available Not Available levofloxa priscila 500 mg tablet active Not Available Not Available No t Available albuterol sulfate HFA 90 mcg/actua tion aerosol inhaler INHALE 2 PUFFS BY MOUTH EVERY 6 HOURS NEEDED FOR WHEEZING FOR UP TO 30 DAYS. 2024 active Not Available Not Available Not Avai lable cefdinir 300 mg capsule TAKE 1 CAPSULE (300 MG TOTAL) BY MOUTH TWO TIMES A DAY FOR 7 DAYS. active Not Available Not Available No t Available losartan 100 mg tablet Take 1 tablet every day by oral route. 02/05 completed Not Available Not Available Not Available fluticaso ne propionat e 50 mcg/actua tion nasal spray,devora pension SPRAY 2 SPRAY(S) (NASAL) 1 TIME PER DAY IN EACH NOSTRIL FOR ALLERGY SYMPTOMS active Not Available Not Available No t Available sertralin e 50 mg tablet Take 1 tablet every day by oral route for 30 days. 11/24 completed Not Available Not Available Not Available doxycycli ne hyclate 100 mg tablet TAKE 1 TABLET (100 MG TOTAL) BY MOUTH TWICE A DAY FOR 7 DAYS NOT FOR PREGNANC Y OR LACTATIO N 07/13 completed Not Available Not Available Not Available irbesarta n 300 mg tablet Take 1 tablet every day by oral route for 90 days. 09/17 completed Not Available Not Available Not Available glycopyrr olate 2 mg tablet Take 1 tablet every day by oral route for 90 days. 05/04 completed Not Available Not Available Not Available loratadin e 10 mg tablet TAKE 1 TABLET BY MOUTH EVERY DAY 11/08 completed Not Available Not Available Not Available naproxen 500 mg tablet active Not Available Not Available Not Available amoxicill in 875 mg-potass ium clavulana te 125 mg tablet TAKE 1 TABLET BY MOUTH TWICE A DAY FOR 10 DAYS 07/13 completed Not Available Not Available Not Available tobramyci n 0.3 %-dexamet hasone 0.1 % eye drops,devora pension Instill by ophthalm ic route for 14 days. 07/10 completed Not Available Not Available Not Available neomycin 3.5 mg/g-poly myxin B 10,000 unit/g-de xameth 0.1 % eye oint APPLY A SMALL AMOUNT INTO THE CONJUNCT IVAL SAC(S) IN AFFECTED EYE(S) BY OPHTHALM IC ROUTE 3 TIMES PER DAY x 7 days 11/08 completed Not Available Not Available Not Available valsartan 160 mg-hydroc hlorothia zide 25 mg tablet TAKE 1 TABLET BY MOUTH EVERY DAY DIRECTED 2024 active Not Available Not Available Not Avai lable albuterol (refill) 90 mcg/actua tion aerosol inhaler Q 4-6 HRS PRN COUGH/WH EEZE 2012 active RECORDED 12/07/19 13 10:54AM BY MARCELLE ARGUETA ON/DIAMOND DUM; Not Available Not Available Not Available ciproflox acin 0.3 %-dexamet hasone 0.1 % ear drops,devora pension INSTILL 4 DROPS INTO AFFECTED EAR TWICE A DAY 07/13 completed Not Available Not Available Not Available Blood Pressure kit DIRECTED 06/30 completed RECORDED 06/30/20 11 9:46AM BY MARCELLE ARGUETA ON/DIAMOND DUM; Not Available Not Available Not Available BD Ultra-Fin e Mini Pen Needle 31 gauge x 3/16 USE TO GIVE INSULIN 1X A DAY. E 11.9 active Not Available Not Available No t Available chlorhexi dine gluconate 0.12 % mouthwash 05/04 completed Not Available Not Available Not Available Lantus Solostar U-100 Insulin 100 unit/mL (3 mL) subcutane ous pen Inject 18 units every day by subcutan eous route for 90 days. 03/20 completed Not Available Not Available Not Available GaviLyte- G 236 gram-22.7 4 gram-6.74 gram-5.86 gram oral solution 07/13 completed Not Available Not Available Not Available Chantix Starting Month Box 0.5 mg (11)-1 mg (42) tablets in dose pack Take 2 tablets every day by oral route. active Not Available Not Available No t Available Combivent Respimat 20 mcg-100 mcg/actua tion solution for inhalatio n Inhale 1 puff 4 times a day by inhalati on route. 02/05 completed Not Available Not Available Not Available EpiPen 2-Henrry PRN BEE STING 12/06 completed RECORDED 12/07/19 13 10:54AM BY MARCELLE ARGUETA ON/DIAMOND STEVENS; Not Available Not Available Not Available Jardiance 10 mg tablet TAKE 1 TABLET BY MOUTH DAILY IN THE MORNING , CALL OFFICE IN 1 MONTH SO I CAN INCREASE DOSE. 01/01 completed Not Available Not Available Not Available Jardiance 25 mg tablet TAKE 1 TABLET BY MOUTH EVERY MORNING 01/01 completed Not Available Not Available Not Available Trulicity 1.5 mg/0.5 mL subcutane ous pen injector INJECT 0.5 ML SUBCUTAN EOUSLY EVERY WEEK, ROTATE INJECTIO N SITES 11/08 completed Not Available Not Available Not Available Trulicity 0.75 mg/0.5 mL subcutane ous pen injector INJECT 0.75 MG SUBCUTAN EOUSLY ONCE WEEKLY (UNTIL 1.5 MG DOSE IS AVAILABL E). ROTATE INJECTIO N SITES. active Not Available Not Available No t Available ID NOW COVID-19 Test Kit TEST DIRECTED 07/15 completed Not Available Not Available Not Available Flucelvax Quad (PF) 60 mcg (15 mcg x 4)/0.5 mL IM syringe 07/10 completed Not Available Not Available Not Available Pataday Once Daily Relief 0.2 % eye drops INSTILL 1 DROP INTO AFFECTED EYE(S) BY OPHTHALM IC ROUTE ONCE DAILY 07/13 completed Not Available Not Available Not Available Vitals Date Recorded Body height Body mass index (BMI) Body weight Oxygen saturation Oxygen saturation in Arterial blood by Pulse oximetry Heart rate Body temperature Systolic blood pressure Diastolic blood pressure Provider Name and Address Organization Details Last Updated DateTime 3 157.48 cm 35.7 kg/m2 83040.9 1 g 97 % 97 % 102 /min 98.3 [degF] 132 mm[Hg] 83 mm[Hg] Patt Harding MA [facility] 3 08:36:01 Date Recorded Body height Provider Name an d Address Organization Details Last Updated DateTime 03/18/2023 157.48 cm Agustín Joya MA [facility] 03/18/2023 13:24:29 Date Recorded Body height Body mass index (BMI) Body weight Heart rate Oxygen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 01/23/2022 09:46:19 01/23/2022 11:16:56 Adult health examination 937169881 Z00.00 Next colonoscop y due in 2023. 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 UTD with vaccines including COVID and shingles. Gastroesop hageal reflux disease 111911942 K21.9 Uses prn PPI. Essential hypertension 46902480 I10 Good control on current meds. No changes. Type 2 pankaj betes mellitus without complication 962473546 E11.9 Her last A1C was very good at 6.3. She is taking trulicity and is being followed at [facility] Endo Pain of right wrist [id number] [id number] 60944 M25.531 Possible gout since started suddenly during the night. May also be tendinitis . Doubt CTS since no symptoms in hands/fing ers. [id number] Lashonda Lowry Main Office [address] [place] [address] 02/05/2023 08:16:26 02/05/2023 09:04:01 Type 2 diabetes mellitus without complication 973185547 E11.9 A1C 6.4, good control, continue current medication s and lifestyle modificati ons. labs today Requires a tetanus booster 758542614 Z28.39 Fatigue 70581141 R53.83 Essential hypertension 28923344 I10 BP well controlled , continue current meds Gastroesop hageal reflux disease 899350120 K21.9 Blepharitis 09200694 H01 .002 H01.005 erythema , flaking under eyes, NPD ointment TID x 7 days, keep clean and dry, avoid applying makeup to area. [id number] Clyde Nava [facility] [address] [place] [address] 03/18/2023 12:55:53 03/18/2023 14:08:57 Lipoma of skin 563510879 D17.30 will order US and refer to gen surg for further eval. keep clean and dry, do not squeeze, tylenol or motrin as needed. [id number] Bere Hudson MD Main Office [address] [place] [address] 06/23/2023 15:07:01 06/23/2023 16:10:55 Adult health examination 708258109 Z00.00 She is due for a colonoscop y which we will book since her last one was done at [facility]. 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 UTD with vaccines including COVID and shingles. History of SARS-CoV-2 29 99559091 45234952 Z86.16 Screening for malignant neoplasm of colon 030526332 Z12.11 Type 2 pankaj betes mellitus without complication 694759806 E11.9 She has been followed by [facility] but will be switching her care here. Her A1C today is 6.0 so we will continue current mgmt and follow her every 6 months. 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 9 very itchy L ear - most likely d/t otomycosis - rx c cortispori n [id number] Bere Hudson MD Main Office [address] [facility] [address] [place] [address] 07/13/2024 10:26:07 07/13/2024 11:32:37 Adult health examination 071417879 Z00.00 She had a colonoscop y done February [address] Ruvalcaba and is due again in 2030.UTD w/mammogra m done earlier this year.UTD with PAP also done earlier this year.Gets regular eye exams and had one done this year.UTD with shingles, tetanus, flu and COVID vaccines. Needs infl uenza immunization 950746046 Z23 19 YEARS AND OLDER ONLY Type 2 pankaj betes mellitus without complication 135910289 E11.9 She has been followed by [facility]. Under good control; last A1C was less than 7. Essential hypertension 80501376 I10 Good control on current meds. No changes. Gastroesop hageal reflux disease 649070476 K21.9 Uses prn PPI. Hearing loss 73524576 H9 1.93 Wears hearing aids. Health Concerns Section Related Observation LastModified by Organization Detai ls LastModified Time None Recorded Concern Status LastModified by Organization Details LastModified Time None Recorded Advance Directives Directive N: Payers Encounter Date Sequence Insurance Name Policy Number Policy Mobley Covered Member ID Mobley Member ID Guarantor Name 02/05/2023 1 [facility] - DIRECT CONNECTORCARE TYPE I (HMO) [id number] Latesha Garrafa [id number] Latesha Garrafa 03/18/2023 1 [facility] - DIRECT CONNECTORCARE TYPE I (HMO) [id number] Latesha Garrafa [id number] Latesha Garrafa 06/23/2023 1 [facility] - DIRECT CONNECTORCARE TYPE I (HMO) [id number] Latesha Garrafa [id number] 01 Latesha Garrafa 11/09/2023 1 [facility] - DIRECT CONNECTORCARE TYPE I (HMO) [id number] Latesha Garrafa [id number] 01 Latesha Garrafa 07/13/2024 1 [facility] - DIRECT CONNECTORCARE TYPE I (HMO) [id number] Latesha Garrafa [id number] 01 Latesha Garrafa Notes Date Note Type Note Provider Name and Address Organization Details Recorded Time 02/05/2023 text/html Diabetes F/URepo rted bypatient.Context:norm al range of home blood sugars (in the low 100s); checking feet regularly; not missing doses of medications; no side effects from medications;not taking aspirin daily Associated Symptoms:no weight gain; no weight loss; no dizziness; no sweats; no headaches; no confusion; no increased thirst; no increased appetite; no increased urination; no blurred vision; no numbness of feet; no calluses on feetNotes:Blood sugars have been good, 130s-160s range. Being followed at [facility], on trulicity and metformin. Doing well. A bit of diarrhea from metformin.Hypertension F/UReported bypatient.Associated Symptoms:no dizziness; no lightheadedness; no chest pain; no shortness of breath; no palpitations; no edema; no calf pain with exertion Lifestyle:limiting/bette iding salt;not exercising regularly Medications:taking medications as directed; no side effects from medicationSinusitis/Al lergyReported bypatient.Associated Symptoms:sore throat;thick phlegm in throat;constantly clearing the throat;nasal dischargeNotes:seen at , on augmentin for sinusitis, feeling better, taking allergy meds and nasal spray. Has had a rash to lash line under both eyes, develops flaking worse on the left. Lashonda bernal, [facility] 02/24/2023 09:12:32 03/18/2023 text/html Generic HPI TemplateReported bypatient.Notes:Video visit:- Patient notes about 2 years ago she noticed bumps on her neck and they get larger and smaller. has had pain for a couple week and now lump is getting larger and hurts.Lump is the size of a baseball or softball, it is soft. has neck pain, diff laying down. Clyde Nava [facility] [address], [address], [facility] 03/18/2023 13:45:10 06/23/2023 text/html Generic HPI TemplateReported bypatient.Notes:Her diabetes has been under very good control with current mgmt. She would like to switch her care from [facility] to [facility].AST>ALT. She drinks more than 2 glasses of wine a night. She will work on cutting back.UTD with immunizations. Bere Hudson MD [address], [address], [facility] 06/24/2023 08:44:36 11/09/2023 text/html Patient c/o runn y nose, watery eyes, facial swelling, and tenderness around the skin of the eyes for almost 2 weeks.She was treated for a sinus infection on 07/13/23.Patient has been taking fexofenadine, using fluticasone nasal spray and saline, and quit smoking x 3 weeks ago. she called ent - they can't see her til next month - rec f/u c pcp c/o eye irritation, itching, tearing, swelling, wateryno a.m. crustingno pur nasal dc Hayden Moreno PA-C [address] [place], [address], [facility] [place] 11/09/2023 17:39:51 07/13/2024 text/html Generic HPI TemplateReported bypatient.Notes:Her diabetes has been under very good control with current mgmt.AST>ALT when we last checked. She has cut back on alcohol. 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 Bere Hudsno MD [address] [facility] [place] [place] [address], [place], [address], [facility] [place] 07/13/2024 11:50:10 OBGyn Episode No OBEpisode recorded.
--- OUTSIDE RECORDS SUMMARY | 2024-09-29 12:15 | XMS_ITS | Continuity of Care Document ---
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 She reports her left infective otitis externa resolved with topical antibiotic drops. She reports facial pain and nasal congestion started 2 days ago, which she has been managing with saline irrigations. Exam demonstrates TMs are intact. Left TM is generally thickened and difficult to assess. External auditory canals are without obstruction. Nasal exam with edematous mucosa and minimal clear nasal drainage. We discussed that most sinus infections are viral in etiology and I recommend supportive measures including acetaminophen every 4 hours, Flonase, and Nyquil as needed. She will inform me if her symptoms worsen in the next 10 days. Will also obtain skin allergy testing. [email or web address] Not available 09/21/2024 09:35:00 Plan of Treatment Reminders Order Date Submit Date Provider Last Modified By Organization Details Last Modified Time Details Appointments Allergy Test 2024 09:00A M [facility] Not available Not available Not available Establish ed 15 2024 09:00A M TRACI LOYA PA-C Not available Not available Not available Lab None recorded. Referral None recorded. Procedures allergy testing, skin prick (PROC) 2024 025 [email or web address] Not available 09/22/2024 15:31:08 intraderm al allergy skin testing (PROC) 2024 025 [email or web address] Not available 09/22/2024 15:31:08 pulmonary function test procedure (PROC) 2024 025 [email or web address] Not available 09/22/2024 15:31:08 pulse oximetry (PROC) 2024 025 [email or web address] Not available 09/22/2024 15:31:08 Surgeries None recorded. Imaging None recorded. Medication Orders None recorded. Patient TargetsNo targets recorded. Patient InstructionsNo instructions recorded. Reason for Referral None Reported. Problems Name Problem SNOMED Code Status Onset Date Resolution Date Notes Provider Name and Address Organization Details Recorded Time Acute maxillary sinusitis 26196915 Active 2018 Acute maxillary sinusitis , unspecifi ed; Note: Date Diagnosed : 01/28/2019 9:02 AM (J01.00) Not Available [facility] 4 02:43:23 Otorrhea of left ear 95726038031 39919 Active 2016 Otorrhea, left ear; Note: Date Diagnosed : 04/06/2017 1:17 PM (H92.12) Otorrhe a, left ear; Note: Date Diagnosed : 10/07/2016 10:40 AM (H92.12) ; Start Date : 7 Not Available [facility] 4 02:43:28 Foreign body in left ear 97767598406 377842 Active 2022 Foreign body in left ear, initial encounter ; Note: Date Diagnosed : 3 9:19 AM (T16.2XXA ) Not Available [facility] 4 02:43:25 Acute suppurati ve otitis media with spontaneo us rupture of ear drum 67148842 Active 2018 Acute suppurati ve otitis media with spontaneo us rupture of ear drum; Note: Date Diagnosed : 03/28/2019 1:00 PM (382.01) Not Available [facility] 4 02:43:33 Sensorine ural hearing loss in right ear 50956127128 100 Active 2019 Sensorine ural hearing loss, unilatera l, right ear, with restricte d hearing on the contralat eral side; Note: Date Diagnosed : 0 11:27 AM (H90.A21) Not Available [facility] 4 02:43:26 Headache 64624146 Active 2018 Facial pain NOS; Note: Date Diagnosed : 01/28/2019 9:02 AM (R51) Not Available [facility] 4 02:43:32 Marginal perforati on of tympanic membrane 27850061 Active 2019 Other marginal perforati ons of tympanic membrane, left ear; Note: Date Diagnosed : 10/21/2019 10:35 AM (H72.2X2) Not Available [facility] 4 02:43:30 Spontaneo us rupture of left tympanic membrane co-occurr ent and due to acute suppurati ve otitis media 70714895672 31492 Active 2018 Acute suppurati ve otitis media with spontaneo us rupture of ear drum, left ear; Note: Date Diagnosed : 03/28/2019 1:00 PM (H66.012) Not Available [facility] 4 02:43:29 Mixed conductiv e and sensorine ural hearing loss of left ear 59724945143 107 Active 2019 Mixed conductiv e and sensorine ural hearing loss, unilatera l, left ear with restricte d hearing on the contralat eral side; Note: Date Diagnosed : 0 11:27 AM (H90.A32) Not Available [facility] 4 02:43:24 Acute sinusitis 76490492 Active 2019 Other acute sinusitis ; Note: Date Diagnosed : 10/21/2019 10:34 AM (J01.80) Other acute sinusitis ; Note: Date Diagnosed : 10/07/2016 10:40 AM (J01.80) ; Start Date : 7 Not Available [facility] 4 02:43:34 Acute myringiti s of left ear 65535089206 43620 Active 2019 Acute myringiti s, left ear; Note: Date Diagnosed : 0 11:43 AM (H73.002) Not Available [facility] 4 02:43:21 Mixed conductiv e and sensorine ural hearing loss, bilateral 503323121 Active 2016 Mixed conductiv e and sensorine ural hearing loss, bilateral ; Note: Date Diagnosed : 10/07/2016 10:40 AM (H90.6) Not Available [facility] 4 02:43:30 Otalgia of left ear 2137376249 Active 2019 Otalgia, left ear; Note: Date Diagnosed : 10/21/2019 10:35 AM (H92.02) Not Available [facility] 4 02:43:22 Candidal otitis externa 82063366 Active 2023 DANIEL KENNEDY PA-C [address] [facility] [place] Formerly named [facility], [place], [address] , [facility] - [facility] 4 10:56:28 Dermal mycosis 79921723 Active 2023 DANIEL KENNEDY PA-C [address] [facility],[place] Formerly named [facility], [place], [address] , [facility] - [facility] 4 10:56:28 Chronic mycotic otitis externa 511970795 Active 2023 DANIEL KENNEDY PA-C [address] [facility] [place] [address], [place], [address] , [facility] - [facility] 4 10:56:28 Acute serous otitis media of left ear 31432691199 52186 Active 2023 Acute serous otitis media, left ear; Note: Date Diagnosed : 11/10/2023 10:58 AM (H65.02) Not Available [facility] 4 02:43:26 Otorrhea 07512183 Active 2024 TRACI LOYA PA-C [address] [place] Formerly named [facility], [place], [address] , [facility] - [facility] 5 12:05:52 Nasal congestio n 93086823 Active 2024 TRACI LOYA PA-C [address] [facility] [place] Formerly named [facility], [place], [address] , [place] - [facility] 5 09:27:47 Pain in face 27499428 Active 2024 TRACI LOYA PA-C [address],[place] [address], [place], [address] , [facility] - [facility] 5 09:27:59 Non-aller gic rhinitis 90462043306 1 Active 2024 TRACI LOYA PA-C [address],[place] [address], [place], [address] , [facility] - [facility] 5 09:29:29 Seasonal allergic rhinitis 882673599 Active 2024 TRACI LOYA PA-C [address],[place] [address], [place], [address] , [facility] - [facility] 5 09:29:29 Allergic rhinitis 92088251 Active 2024 TRACI LOYA PA-C [address] [facility] [place],[facility] [address], [place], [address] , [facility] - [facility] 5 09:29:29 Problem Notes None recorded. Medical Equipment None Reported. Allergies Allergen ID Allergen Name Allergen Category Reaction Reaction Severity Criticality Documentation Date Start Date Code Code System Note Provider Name and Address Organization Details Recorded Time [id number] Bactrim medicatio n other Not available Not available 12/29/2023 07880 9 RxNorm React ion: unkno wn, unspe cifie d;; Not Available [facility] 4 01:12:39 503773 Substance with sulfonami de structure and antibacte rial mechanism of action (substanc e) medicatio n other Not available Not available 12/29/2023 78590 8003 SNOMED React ion: unkno wn, unspe cifie d;; Not Available [facility] 4 01:12:42 Medications Name Sig Start Date Stop Date Status Note LastModified by Organization Details LastModified Time ciproflox acin 750 mg tablet TAKE 1 TABLET BY MOUTH TWICE A DAY 09/21 completed Not Available Not Available Not Available azithromy priscila 250 mg tablet 09/21 completed Medicati on ID: [id number] D uration Value: 5 Prescri bed By Name: ADAN Echevarria nd Name: idalmis espino Sen d Method: E-Prescr ibed Sub s Allowed: subs OK Speci al Instruct ion: 2 tabs day 1, then 1 tab q day for 4 days Med icationG enericNa me: idalmis daltonin Not Available Not Available Not Available prednison e 20 mg tablet TAKE 2 TABLETS BY MOUTH EVERY DAY FOR 5 DAYS 09/21 completed Not Available Not Available Not Available omeprazol e 40 mg capsule,d elayed release TAKE 1 CAPSULE BY MOUTH EVERY DAY DIRECTED active Not Available Not Available No t Available Nicotrol 10 mg inhalatio n cartridge 09/21 completed Medicati on ID: [id number] B rand Name: Nicotrol Send Method: E-Prescr ibed Sub s Allowed: subs OK Medic ationGen ericName : Nicotrol Not Available Not Available Not Available losartan 100 mg-hydroc hlorothia zide 25 mg tablet 05/29 completed Medicati on ID: [id number] D uration Value: 90 Brand Name: losartan -hydroch lorothia zide Sen d Method: E-Prescr ibed Sub s Allowed: subs OK Speci al Instruct ion: TAKE 1 TABLET BY MOUTH EVERY DAY Medi cationGe nericNam e: losartan -hydroch lorothia zide Not Available Not Available Not Available ofloxacin 0.3 % ear drops APPLY 4 DROP INTO LEFT EAR TWICE A DAY 09/21 completed Not Available Not Available Not Available amoxicill in 875 mg tablet TAKE 1 TABLET BY MOUTH TWICE A DAY FOR 7 DAYS 09/21 completed Not Available Not Available Not Available ciproflox acin 0.3 % eye drops ADMINIST ER 1 DROP TO BOTH EYES 4 (FOUR) TIMES A DAY FOR 7 DAYS 09/21 completed Not Available Not Available Not Available amlodipin e 10 mg tablet TAKE 1 TABLET BY MOUTH EVERY DAY DIRECTED active Not Available Not Available No t Available benzonata te 100 mg capsule TAKE 1 CAPSULE BY MOUTH THREE TIMES A DAY NEEDED FOR COUGH FOR UP TO 7 DAYS active Not Available Not Available No t Available econazole nitrate 1 % topical cream active Not Available Not Available Not Available metformin 1,000 mg tablet TAKE 1 TABLET BY MOUTH 2 TIMES A DAY BEFORE BREAKFAS T AND DINNE,IN STR:TAKE WITH FOOD active Not Available Not Available No t Available irbesarta n 300 mg-hydroc hlorothia zide 12.5 mg tablet 05/29 completed Medicati on ID: [id number] D uration Value: 90 Brand Name: holden goldstein-hydro chloroth iazide S end Method: E-Prescr ibed Sub s Allowed: subs OK Speci al Instruct ion: TAKE 1 TABLET BY MOUTH EVERY DAY Medi cationGe nericNam e: irbesart an-hydro chloroth iazide Not Available Not Available Not Available clotrimaz ole 1 % topical solution APPLY 4 DROPS TO THE AFFECTED EAR 3 TIMES A DAY FOR 2 WEEKS 09/21 completed Not Available Not Available Not Available albuterol sulfate HFA 90 mcg/actua tion aerosol inhaler INHALE 2 PUFFS BY MOUTH EVERY 6 HOURS NEEDED FOR WHEEZING FOR UP TO 30 DAYS. active Not Available Not Available No t Available cefdinir 300 mg capsule TAKE 1 CAPSULE (300 MG TOTAL) BY MOUTH TWO TIMES A DAY FOR 7 DAYS. 09/21 completed Not Available Not Available Not Available doxycycli ne hyclate 100 mg tablet TAKE 1 TABLET (100 MG TOTAL) BY MOUTH TWICE A DAY FOR 7 DAYS NOT FOR PREGNANC Y OR LACTATIO N 09/21 completed Not Available Not Available Not Available amoxicill in 875 mg-potass ium clavulana te 125 mg tablet TAKE 1 TABLET BY MOUTH TWICE A DAY FOR 10 DAYS 09/21 completed Not Available Not Available Not Available tobramyci n 0.3 %-dexamet hasone 0.1 % eye drops,devora pension 4 drops twice daily into the affected ear for 14 days active Not Available Not Available No t Available valsartan 160 mg-hydroc hlorothia zide 25 mg tablet TAKE 1 TABLET BY MOUTH EVERY DAY DIRECTED active Not Available Not Available No t Available ciproflox acin 0.3 %-dexamet hasone 0.1 % ear drops,devora pension INSTILL 4 DROPS INTO AFFECTED EAR TWICE A DAY 09/21 completed Not Available Not Available Not Available Lantus Solostar U-100 Insulin 100 unit/mL (3 mL) subcutane ous pen 09/21 completed Medicati on ID: [id number] D uration Value: 30 Brand Name: Lantus Solostar U-100 Insulin Send Method: E-Prescr ibed Sub s Allowed: subs OK Speci al Instruct ion: PLEASE SEE ATTACHED FOR DETAILED DIRECTIO NS Medic ationGen ericName : Lantus Solostar U-100 Insulin Not Available Not Available Not Available GaviLyte- G 236 gram-22.7 4 gram-6.74 gram-5.86 gram oral solution TAKE 4000 ML DIRECTED 09/21 completed Not Available Not Available Not Available Trulicity 1.5 mg/0.5 mL subcutane ous pen injector INJECT 1.5 MG SUBCUTAN EOUS INJECTIO N EVERY WEEK, ROTATE INJECTIO N SITES active Not Available Not Available No t Available Trulicity 0.75 mg/0.5 mL subcutane ous pen injector INJECT 0.75 MG SUBCUTAN EOUSLY ONCE WEEKLY (UNTIL 1.5 MG DOSE IS AVAILABL E). ROTATE INJECTIO N SITES. 09/21 completed Not Available Not Available Not Available Flonase Allergy Relief 50 mcg/actua tion nasal spray,devora pension 2016 active Medicati on ID: [id number] D uration Value: 30 Brand Name: Flonase Allergy Relief S end Method: E-Prescr ibed Sub s Allowed: subs OK Speci al Instruct ion: 2 sprays each nostril once a day Medi cationGe nericNam e: Flonase Allergy Relief Not Available Not Available Not Available Vitals Date Recorded Body height Body mass index (BMI) Body weight Provider Name and Address Organization Details Last Updated DateTime 09/21/2024 160.02 cm 35.1 kg/m2 13584.29 g Cori Brantley [place] - [facility] 09/21/2024 09:10:59 Social History None recorded. Functional Status None recorded. Mental Status None recorded. Family History Nothing Reported. Medical History No medical history recorded. Gynecological HistoryNo gynecological history recorded. Obstetrics History GPAL:G 0 P 0 0 0 0 Past Encounters Encounter ID Performer Location Encounter Start Date Encounter Closed Date Diagnosis/Indication Diagnosis SNOMED-CT Code Diagnosis ICD10 Code Diagnosis Note [id number] FREDO CLARK MD [facility] [address] [address] 09/01/2024 11:00:07 09/01/2024 11:43:44 Otorrhea of left ear 1974155228 495434 H92.12 Otorrhea 30688263 H92.12 Chronic my cotic otitis externa 160491591 H60.399 Dermal mycosis 24834371 B36.9 Candidal o titis externa 91090339 B37.84 [id number] AGUSTINA BELLE MD [facility] [address] [address] 09/21/2024 08:54:08 09/21/2024 09:25:26 Otorrhea of left ear [id number] 757905 H92.12 Nasal congestion 8188746 0 R09.81 Pain in face 81327165 R5 1.9 Health Concerns Section Related Observation LastModified by Organization Detai ls LastModified Time None Recorded Concern Status LastModified by Organization Details LastModified Time None Recorded Payers Encounter Date Sequence Insurance Name Policy Number Policy Mobley Covered Member ID Mobley Member ID Guarantor Name 09/21/2024 1 [facility] TYPE I ([id number]) [id number] Latesha Douglas [id number] Latesha Douglas Notes Date Note Type Note Provider Name and Address Organization Details Recorded Time 09/21/2024 text/html 59-year-old fema annika with history of recurrent sinusitis presents for evaluation of the ear and the sinuses. She reports her left infective otitis externa resolved with topical antibiotic drops. She reports facial pain and nasal congestion started 2 days ago, which she has been managing with saline irrigations. She endorses fever last night. She also reports poorly controlled hypertension and takes daily amlodipine and valsartan. History of temporary asthma. AGUSTINA BELLE MD [address] [place] [address], [address], [facility] - [facility] 09/21/2024 17:34:47 OBGyn Episode No OBEpisode recorded.
--- OUTSIDE RECORDS SUMMARY | 2024-09-29 12:15 | XMS_ITS | Data Portability ---
Author Organization NETTA Aguilar s, [address] Address [address] [place] [address] Care Team Providers Care Outreach Liaison Name Role Phone [facility] Primary Care Provider Assessment No assessment recorded. Plan of Treatment Reminders Order Date Submit Date Provider Last Modified By Organization Details Last Modified Time Details Appointments None recorded. Lab None recorded. Referral None recorded. Procedures None recorded. Surgeries None recorded. Imaging None recorded. Medication Orders amoxicillin 875 mg-potassiu m clavulanate 125 mg tablet 2022 023 [facility]acy #[id number], [address] [place], [address], 3 10:43:59 prednisone 20 mg tablet 2022 023 [facility] #[id number], [address] [place], [address], 3 10:43:59 amoxicillin 875 mg-potassiu m clavulanate 125 mg tablet 2022 023 [facility]acy #[id number], [address] [place], [address], 3 10:25:04 loratadine 10 mg tablet 2022 023 [facility] #[id number], [address] [place], [address], 3 18:48:36 Patient TargetsNo targets recorded. Patient Instructions Encounter Date Encounter Id Patient Instructions Last Modified By Organization Details Last Modified Time 11/29/2022 [id number] cellulitis: care instructions Not available 11/29/2022 18:48:14 Acute Sinusitis: Care Instructions [email or web address] Not available 11/29/2022 18:48:14 Based on your presentation and exam, you are being diagnosed with Sinusitis. Rhinosinusitis is most often viral and will resolve on its own in 7-10 days. Symptoms that last longer than 2 weeks an antibiotic could be considered. Based on your presentation, and antibiotic was written. The following are my recommendations to help your symptoms and to allow your condition to improve: 1. Drink plenty of fluids while you are ill- stay hydrated 2. Rest - don't overexert yourself - this includes sports and any gym routines. 3. I suggest taking an antihistamine - like Claritin, Zyrtec, or Benedryl 4. If you take OTC cold medication I would recommend Dora-Selzer Cold/Cough. 5. Mucinex with a lot of water is ok - if you are having trouble clearing your nasal passages of mucous. However, if you start to cough then discontinue - this can increase coughing due to a watery post nasal drip. 6. Saline Nasal [place] is recommended. Since an antibiotic was prescribed you need to complete the full course - this is important so you don't develop any antibiotic resistance to future infections. I advise taking a Probiotic like Florastor since you are on an antibiotic - this will help you re-colonize your body with the good bacteria. Typically, it will take 6 months for you to restore your normal body arpan after an antibiotic. Don't hesitate to be seen again if you develop: 1. Fever > 100.5 2. Worsening Headache 3. Stiff Neck 4. Worsening Cough or Shortness of breath 5. Visual Changes. The antibiotic should start to work in 4-5 days. You may not notice immediate response. Based on your presentation and exam today, I am diagnosing you with cellulitis. I am going to prescribe you and antibiotic to cover this infection. Please be sure to complete the full course of this antibiotic to prevent antibiotic resistance. I suggest with any antibiotic that you take Florastor or another probiotic. This help re-colonize you body with the good bacteria. It might take 3-4 days for the antibiotic to start working - so don't panic if your infection gradually worsens over the next 48 hours before it gets better. The following are my recommendations to help you feel better and aid in resolving this infection: 1. No creams or lotions on the affected area - so no Antibiotic ointment. 2. Take Ibuprofen or Tylenol if you do not have any allergies to these medications. If you take a blood thinner you should not take NSAIDS like Ibuprofen. These medication will help with the inflammation in your respiratory tract which should help the cough. 3. Do no squeeze or pick at the area. This can worsen the infection. The following are warning signs to look out for that would suggest the infection is worsening. This would mean you should be seen again: 1. Fever > 100.5 2. Redness is spreading to double the size in 24 hours 3. Increased swelling and pain. 4. Inability to move a joint 5. Swollen lymph nodes that are tender Thank you for using [facility] today, please don't hesitate to call or reach out to us if you have any questions or concerns. [email or web address] Not available 11/30/2022 08:07:55 04/16/2023 [id number] Acute Sinusitis: Care Instructions Not available 04/16/2023 10:43:57 Acute Sinusitis: Care Instructions Not available 04/16/2023 10:44:19 Reason for Referral None Reported. Problems Name Problem SNOMED Code Status Onset Date Resolution Date Notes Provider Name and Address Organization Details Recorded Time Diabetes mellitus 21075348 Active 2022 NETTA Fernandez [facility] 3 18:20:24 Hypertensive disorder 62858018 Active 2022 NETTA Fernandez [facility] 3 18:20:30 Problem Notes None recorded. Medical Equipment None Reported. Allergies Allergen ID Allergen Name Allergen Category Reaction Reaction Severity Criticality Documentation Date Start Date Code Code System Note Provider Name and Address Organization Details Recorded Time 878276 Substance with sulfonami de structure and antibacte rial mechanism of action (substanc e) medicatio n hives Not available Not available 11/29/2022 96075 8003 SNOMED NETTA Fernandez [facility] 3 18:19:43 764708 Bactrim medicatio n hives Not available Not available 04/16/2023 28737 9 RxNorm NETTA Mirza - [facility] 3 10:24:55 Medications Name Sig Start Date Stop Date Status Note LastModified by Organization Details LastModified Time Prescriptio n - Renewal active Not Available Not Available Not Available prednisone 20 mg tablet Take 2 tablets every day by oral route for 2 days. 2022 active Not Available Not Available Not Avai lable neomycin-po lymyxin-dex ameth 3.5 mg/mL-10,00 0 unit/mL-0.1 % eye drops PLEASE SPECIFY DIRECTION S, REFILLS AND QUANTITY 11/29 completed Not Available Not Available Not Available loratadine 10 mg tablet TAKE 1 TABLET BY MOUTH EVERY DAY active Not Available Not Available No t Available amoxicillin 875 mg-potassiu m clavulanate 125 mg tablet Take 1 tablet twice a day by oral route for 10 days. 2022 active Not Available Not Available Not Avai lable valsartan 160 mg-hydrochl orothiazide 25 mg tablet Take 1 tablet every day by oral route. active Not Available Not Available No t Available amlodipine active Not Available Not Av ailable Not Available metformin active Not Available Not Linda ilable Not Available Trulicity active Not Available Not Linda ilable Not Available Vitals Date Recorded Body height Body mass index (BMI) Body weight Pain severity - 0-10 verbal numeric rating [Score] - Reported Oxygen saturation Oxygen saturation in Arterial blood by Pulse oximetry Heart rate Respiratory rate Body temperature Systolic blood pressure Diastolic blood pressure Provider Name and Address Organization Details Last Updated DateTime 3 160.02 cm 35.1 kg/m2 13479.2 9 g 9 99 % 99 % 70 /min 20 /min 96.6 [degF] 181 mm[Hg] 110 mm[Hg] SELIN CHADWICK - [facility] 3 18:24:07 Date Recorded Systolic blood pressure Diastolic blood pressure Provider Name and Address Organization Details Last Updated DateTime 11/29/2022 160 mm[Hg] 94 mm[Hg] NETTA HOPKINS [address] [place], [address], [place] - [facility] 11/29/2022 18:46:00 Date Recorded Body height Body mass index (BMI) Body weight Respiratory rate Body temperature Oxygen saturation Oxygen saturation in Arterial blood by Pulse oximetry Heart rate Systolic blood pressure Diastolic blood pressure Provider Name and Address Organization Details Last Updated DateTime 3 160.02 cm 35.1 kg/m2 87190.2 9 g 18 /min 97.5 [degF] 97 % 97 % 103 /min 155 mm[Hg] 92 mm[Hg] ROMAIN MIRANDA [place] - [facility] 3 10:27:22 Social History Question Answer Notes LastModified by Organizat ion Details LastModified Time Tobacco Smoking Status Current Every Day Smoker SELIN bernal [place] - [facility] 11/29/2022 18:21:41 What Is Your Level Of Alcohol Consumption? Moderate [email or web address] Information not available 11/29/2022 How Much Tobacco Do You Smoke? 0.25 PPD [email or web address] Information not available 11/29/2022 Do You Use Any Illicit Or Recreational Drugs? No [email or web address] Information not available 11/29/2022 Have You Recently Traveled Abroad? No [email or web address] Information not available 11/29/2022 Do You Or Have You Ever Used Any Other Forms Of Tobacco Or Nicotine? No [email or web address] Information not available 11/29/2022 Sex: Unknown Functional Status None recorded. Mental Status None recorded. Family History Relationship Description Onset Age of this Age Resolved Age Notes LastModified by Organization Details LastModified Time Father No current problems or disability Not available 11/29 18:21:17 Mother No current problems or disability Not available 11/29 18:21:17 Medical History No medical history recorded. Gynecological HistoryNo gynecological history recorded. Obstetrics History GPAL:G 0 P 0 0 0 0 Past Encounters Encounter ID Performer Location Encounter Start Date Encounter Closed Date Diagnosis/Indication Diagnosis SNOMED-CT Code Diagnosis ICD10 Code Diagnosis Note [id number] [address] [place] [address] 05/21/2022 14:15:28 05/21/2022 18:46:20 [id number] [address] [place] [address] 12/03/2019 12:46:35 12/03/2019 13:31:47 [id number] [address] [place] [address] 02/27/2022 15:10:38 02/27/2022 16:01:29 [id number] NETTA HOPKINS [address] [place] [address] 11/29/2022 17:02:56 11/29/2022 18:51:39 Acute sinusitis 70487399 J01.90 Cellulitis of face 2001 L03.211 Differenti al: Early Shingles - call me tomorrow if you wake up with pimple clusters on that red area. I would stop using the eyepads incase this is an allergic reaction. Hypertensive disorder 38 298105 I10 Your blood pressure was elevated today - you need to follow up with your PCP for this. Medication may need to be adjusted. Please keep a journal of AM and PM readings from a home cuff. This will help adjust medication s. DO NOT TAKE SUDEFED! [id number] [place] [address] [address] [place] [address] 04/16/2023 09:32:42 04/16/2023 10:45:30 Acute sinusitis 93616471 J01.90 discussed watching blood sugar closely, short course prednisone , 2 days onlyYou are being prescribed a Steroid. You must take this with food. While on a Steroid, you should not take Ibuprofen or any other NSAID because this will cause stomach irritation . - Use the medication s prescribed .- Decongesta nts if tolerated. - Recommend recheck if fever develops or no improvemen t in 5-7 days.- Use saline nasal spray or neti-pot flushes once to twice a day to loosen mucus in sinuses.-. Use a cool mist humidifier in the room that you sleep to add moisture to the air, which should soothe the airways and help loosen any mucus that may be present.-C all 911 or proceed to nearest Emergency Department if you develop shortness of breath, chest pain, severe headache or other symptoms that concern you. Health Concerns Section Related Observation LastModified by Organization Detai ls LastModified Time None Recorded Concern Status LastModified by Organization Details LastModified Time None Recorded Advance Directives Directive None Recorded Payers Encounter Date Sequence Insurance Name Policy Number Policy Mobley Covered Member ID Mobley Member ID Guarantor Name 02/27/2022 1 [facility] [employer] (MEDICAID HMO) [id number] Latesha Garrafa [id number] 1 Latesha Garrafa 05/21/2022 1 [facility] [employer] (MEDICAID HMO) [id number] Latesha Garrafa [id number] Latesha Garrafa 11/29/2022 1 [facility] [id number] - TOGETHER (MEDICAID HMO) [id number] Latesha Garrafa [id number] 1 Latesha Garrafa 04/16/2023 1 [facility] [employer] - [employer]GET[employer] (MEDICAID HMO) [id number] Latesha Garrafa [id number] 1 Latesha Garrafa Notes Date Note Type Note Provider Name and Address Organization Details Recorded Time 3 text/html Sinus ComplaintsReported bypatient.Location:sinu s pain;facial pain;pain in the cheek; left side Associated Symptoms:nasal discharge from both nostrils;headache forehead;eye itching; Dry mouth. Denies vision change. Redness and swelling on the left cheek. Onset/Timing:initially started 4days ago Quality:worsening Duration:frequent Severity:severe Context:no recent upper respiratory infection; no recent sick contacts; not worse with seasonal allergen exposure Alleviating factors:OTC meds pseudofedNotes:The patient presents insisting she has a sinus infection. She explains she gets this all the time and she knows her body. Did try to extract some symptoms from her with includes left sided facial and forehead pressure. Noticed she has erythema and swelling on the cheek and forehead. I questioned this and she states it is from using a new eye patch under her eye. The patient denies history of shingles. She states she is vaccinated. The patient reports terrible headache and pressure. She reports history of HTN and she takes medication. She states she is also taking 2 pseudofed a day despite having blood pressure issues. She feels it is the only thing that gives her relief and does not make the headache any worse. She states blood pressure is always high - strong family history reports brother just had a stroke. Is insistent as well that the blood pressure is elevated because of her discomfort and taking psuedofed. Denies that the headache worsens with sudefed or that headache could be related to blood pressure. She states that this is her normal presentation for sinusitis - she has the dry mouth and congestion that doesn't clear. No ear pain but she reports issues with her ear. Had a severe infection recently in the left ear. Has had reconstructive TM surgery. NETTA HOPKINS [address] [place], [address], [place] [facility] 11/30/2022 08:08:44 3 text/html Sinus Complaints UCReported bypatient.Location:pain behind the eyes;sinus pain;facial pain;pain in the cheek;sinus pressure; left side Associated Symptoms:nasal discharge from both nostrils;Post nasal drip;nasal passage blockage left Onset/Timing:progressiv shelby worse over last 2weeks Duration:long standing Severity:moderate Prior Treatmentnasal saline rinse; oral decongestant; nasal steroids: Acosta Jacobo MD [address] [place], [address], [place] - [facility] 04/16/2023 10:46:05 OBGyn Episode No OBEpisode recorded.
--- OUTSIDE RECORDS SUMMARY | 2024-09-29 12:16 | XMS_ITS | Continuity of Care Document ---
Author Organization [facility], [facility] Address [address] [place] [address] Care Team Providers Care Clinical Pathologist Name Role Phone BERE THOMPSON Primary Care Provider Assessment Encounter Date Assessment Date Assessment LastModified by Organization Details LastModified Time 09/01/2024 09/01/2024 59yo female with bilateral amplification, chronic mycotic otitis externa, and diabetes presents for evaluation of left otorrhea. Otologic exam demonstrates left EAC is erythematous with purulent otorrhea and fungal debris, suctioned today. Left TM with 5% anterior superior perforation with loss of landmarks. Recommend topical Clotrimazole three times daily for 14 days. Reviewed drop administration and water precautions. We obtained culture of the left EAC today and will adjust treatment based on results. Patient will return for revaluation in 2-3 weeks to assess for infection resolution. Will offer audiometric testing once infection resolves if hearing loss persists. Patient agrees with plan. [email or web address] Not available 09/01/2024 12:41:03 Plan of Treatment Reminders Order Date Submit Date Provider Last Modified By Organization Details Last Modified Time Details Appointments Allergy Test 2024 09:00A M [facility] Not available Not available Not available Establish ed 15 2024 09:00A M TRACI LOYA PA-C Not available Not available Not available Lab fungus, culture, unspecifi ed specimen 2024 025 [facility], [address] [facility], [address], [place], [address], 09/08/2024 10:03:18 culture, bacterial 2024 025 [email or web address] [facility], [address] [facility], [facility] [address], [place], [address], 09/08/2024 10:03:18 Referral None recorded. Procedures None recorded. Surgeries None recorded. Imaging None recorded. Medication Orders clotrimaz ole 1 % topical solution 2024 025 [id number], [address] [facility] [place], [address], 09/21/2024 09:11:33 Patient TargetsNo targets recorded. Patient InstructionsNo instructions recorded. Reason for Referral None Reported. Problems Name Problem SNOMED Code Status Onset Date Resolution Date Notes Provider Name and Address Organization Details Recorded Time Acute maxillary sinusitis 14159948 Active 2018 Acute maxillary sinusitis , unspecifi ed; Note: Date Diagnosed : 01/28/2019 9:02 AM (J01.00) Not Available [facility] 4 02:43:23 Otorrhea of left ear 10544505528 86115 Active 2016 Otorrhea, left ear; Note: Date Diagnosed : 04/06/2017 1:17 PM (H92.12) Otorrhe a, left ear; Note: Date Diagnosed : 10/07/2016 10:40 AM (H92.12) ; Start Date : 7 Not Available [facility] 4 02:43:28 Foreign body in left ear 67579416407 267210 Active 2022 Foreign body in left ear, initial encounter ; Note: Date Diagnosed : 3 9:19 AM (T16.2XXA ) Not Available [facility] 4 02:43:25 Acute suppurati ve otitis media with spontaneo us rupture of ear drum 43281171 Active 2018 Acute suppurati ve otitis media with spontaneo us rupture of ear drum; Note: Date Diagnosed : 03/28/2019 1:00 PM (382.01) Not Available [facility] 4 02:43:33 Sensorine ural hearing loss in right ear 52290428101 100 Active 2019 Sensorine ural hearing loss, unilatera l, right ear, with restricte d hearing on the contralat eral side; Note: Date Diagnosed : 0 11:27 AM (H90.A21) Not Available [facility] 4 02:43:26 Headache 08026555 Active 2018 Facial pain NOS; Note: Date Diagnosed : 01/28/2019 9:02 AM (R51) Not Available [facility] 4 02:43:32 Marginal perforati on of tympanic membrane 09809650 Active 2019 Other marginal perforati ons of tympanic membrane, left ear; Note: Date Diagnosed : 10/21/2019 10:35 AM (H72.2X2) Not Available [facility] 4 02:43:30 Spontaneo us rupture of left tympanic membrane co-occurr ent and due to acute suppurati ve otitis media 25248241047 20329 Active 2018 Acute suppurati ve otitis media with spontaneo us rupture of ear drum, left ear; Note: Date Diagnosed : 03/28/2019 1:00 PM (H66.012) Not Available [facility] 4 02:43:29 Mixed conductiv e and sensorine ural hearing loss of left ear 65730205395 107 Active 2019 Mixed conductiv e and sensorine ural hearing loss, unilatera l, left ear with restricte d hearing on the contralat eral side; Note: Date Diagnosed : 0 11:27 AM (H90.A32) Not Available [facility] 4 02:43:24 Acute sinusitis 17142024 Active 2019 Other acute sinusitis ; Note: Date Diagnosed : 10/21/2019 10:34 AM (J01.80) Other acute sinusitis ; Note: Date Diagnosed : 10/07/2016 10:40 AM (J01.80) ; Start Date : 7 Not Available [facility] 4 02:43:34 Acute myringiti s of left ear 78501017932 13649 Active 2019 Acute myringiti s, left ear; Note: Date Diagnosed : 0 11:43 AM (H73.002) Not Available [facility] 4 02:43:21 Mixed conductiv e and sensorine ural hearing loss, bilateral 052463325 Active 2016 Mixed conductiv e and sensorine ural hearing loss, bilateral ; Note: Date Diagnosed : 10/07/2016 10:40 AM (H90.6) Not Available [facility] 4 02:43:30 Otalgia of left ear 5190111014 Active 2019 Otalgia, left ear; Note: Date Diagnosed : 10/21/2019 10:35 AM (H92.02) Not Available [facility] 4 02:43:22 Candidal otitis externa 42460388 Active 2023 DANIEL KENNEDY PA-C [address], [place], [address] , [place] [facility] 4 10:56:28 Dermal mycosis 24130354 Active 2023 DANIEL KENNEDY PA-C [address], [place], [address] , [place] [facility] 4 10:56:28 Chronic mycotic otitis externa 855409631 Active 2023 DANIEL KENNEDY PA-C [address], [place], [address] , [place] [facility] 4 10:56:28 Acute serous otitis media of left ear 26629323996 01723 Active 2023 Acute serous otitis media, left ear; Note: Date Diagnosed : 11/10/2023 10:58 AM (H65.02) Not Available [facility] 4 02:43:26 Otorrhea 00357376 Active 2024 TRACI LOYA PA-C [address], [place], [address] , [facility] 5 12:05:52 Nasal congestio n 42117233 Active 2024 TRACI LOYA PA-C [address], [place], [address] , [place] [facility] 5 09:27:47 Pain in face 28908764 Active 2024 TRACI LOYA PA-C [address], [place], [address] , [place] [facility] 5 09:27:59 Non-aller gic rhinitis 30235704167 1 Active 2024 TRACI LOYA PA-C [address], [place], [address] , [place] [facility] 5 09:29:29 Seasonal allergic rhinitis 586760775 Active 2024 TRACI LOYA PA-C [address], [place], [address] , [place] [facility] 5 09:29:29 Allergic rhinitis 73026642 Active 2024 TRACI LOYA PA-C [address], [place], [address] , [place] [facility] 5 09:29:29 Problem Notes None recorded. Medical Equipment None Reported. Allergies Allergen ID Allergen Name Allergen Category Reaction Reaction Severity Criticality Documentation Date Start Date Code Code System Note Provider Name and Address Organization Details Recorded Time 903539 Bactrim medicatio n other Not available Not available 12/29/2023 50978 9 RxNorm React ion: unkno wn, unspe cifie d;; Not Available [facility] 4 01:12:39 665040 Substance with sulfonami de structure and antibacte rial mechanism of action (substanc e) medicatio n other Not available Not available 12/29/2023 18504 8003 SNOMED React ion: unkno wn, unspe cifie d;; Not Available [facility] 4 01:12:42 Medications Name Sig Start Date Stop Date Status Note LastModified by Organization Details LastModified Time ciproflox acin 750 mg tablet TAKE 1 TABLET BY MOUTH TWICE A DAY 09/21 completed Not Available Not Available Not Available azithromy priscila 250 mg tablet 09/21 completed Medicati on ID: [id number] D uration Value: 5 Prescri bed By Name: ADAN Echevarria nd Name: idalmis espino Sen d Method: E-Prescr ibed Sub s Allowed: subs OK Speci al Instruct ion: 2 tabs day 1, then 1 tab q day for 4 days Med icationG enericNa me: idalmis ycin Not Available Not Available Not Available prednison e 20 mg tablet TAKE 2 TABLETS BY MOUTH EVERY DAY FOR 5 DAYS 09/21 completed Not Available Not Available Not Available omeprazol e 40 mg capsule,d elayed release TAKE 1 CAPSULE BY MOUTH EVERY DAY DIRECTED active Not Available Not Available No t Available Nicotrol 10 mg inhalatio n cartridge 09/21 completed Medicati on ID: [id number] B rand Name: Nicotrol Send Method: E-Prescr ibed Sub s Allowed: subs OK Medic ationGen ericName : Nicotrol Not Available Not Available Not Available losartan 100 mg-hydroc hlorothia zide 25 mg tablet 05/29 completed Medicati on ID: [id number] D uration Value: 90 Brand Name: losartan -hydroch lorothia hannah Sen d Method: E-Prescr ibed Sub s [...] mg tablet 05/29 completed Medicati on ID: [id number] D uration Value: 90 Brand Name: holden goldstein-hydro chloroth iazide S end Method: E-Prescr ibed Sub s Allowed: subs OK Speci al Instruct ion: TAKE 1 TABLET BY MOUTH EVERY DAY Medi cationGe nericNam e: casaart an-hydro chloroth iazide Not Available Not Available [...] ous pen 09/21 completed Medicati on ID: [id number] D uration Value: 30 Brand Name: Lantus [...] spray,devora pension 2016 active Medicati on ID: [id number] D uration Value: 30 Brand Name: Flonase Allergy Relief S end Method: E-Prescr ibed Sub s Allowed: subs OK Speci al Instruct ion: 2 sprays each nostril once a day Medi cationGe nericNam e: Flonase Allergy Relief Not Available Not Available Not Available Vitals Date Recorded Body height Body mass index (BMI) Body weight Provider Name and Address Organization Details Last Updated DateTime 09/01/2024 160.02 cm 35.1 kg/m2 86773.29 g Carolyn Aggarwal [place] - [facility] 09/01/2024 11:05:07 Social History None recorded. Functional Status None recorded. Mental Status None recorded. Family History Nothing Reported. Medical History No medical history recorded. Gynecological HistoryNo gynecological history recorded. Obstetrics History GPAL:G 0 P 0 0 0 0 Past Encounters Encounter ID Performer Location Encounter Start Date Encounter Closed Date Diagnosis/Indication Diagnosis SNOMED-CT Code Diagnosis ICD10 Code Diagnosis Note [id number] FREDO CLARK MD [facility] [address] [address] 09/01/2024 11:00:07 09/01/2024 11:43:44 Otorrhea of left ear 5187182705 914198 H92.12 Otorrhea 01664350 H92.12 Chronic my cotic otitis externa 577757406 H60.399 Dermal mycosis 16582785 B36.9 Candidal o titis externa 42116750 B37.84 Health Concerns Section Related Observation LastModified by Organization Detai ls LastModified Time None Recorded Concern Status LastModified by Organization Details LastModified Time None Recorded Payers Encounter Date Sequence Insurance Name Policy Number Policy Mobley Covered Member ID Mobley Member ID Guarantor Name 09/01/2024 1 [facility] Vertical Ac[employer] PLANS [facility] [place] [employer] (HMO) [id number] Latesha Douglas [id number] Latesha Douglas Notes Date Note Type Note Provider Name and Address Organization Details Recorded Time 09/01/2024 text/html 59yo female with bilateral amplification, chronic mycotic otitis externa, and diabetes presents for evaluation of left otorrhea. She reports this started 3 weeks ago and did not improve with oral Amoxicillin or Ciprofloxacin. She had a sinus infection and possibly bronchitis at the same time. She reports left otalgia, otorrhea, and muffled hearing today. She reports history of spontaneous left TM perforation due to middle ear infection. FREDO CLARK MD [address] [place] [address], [address], [facility] - [facility] 09/02/2024 12:54:49 OBGyn Episode No OBEpisode recorded.
--- OUTSIDE RECORDS SUMMARY | 2024-09-29 12:16 | XMS_ITS | Clinical Summary ---
Author Organization [facility] Address [address] [place] [address] Care Team Providers Care Grading Machine Feeder Name Role Phone Bryson Hudson MD Primary Care Provider Surgical History Surgery Date Site/Laterality Comments OTHER SURGICAL HISTORY 12/2012 PROCEDURE: TN INSERTION INTRAUTERINE DEVICE IUD; COMMENT: Taiwo Perkins CNM Medical History Medical History Date Comments Herpetic ulceration of vulva DX: Herpetic ulceration of vulva Unspecified asthma(493.90) DX:Un specified asthma(493.90) Other specified personal his tory presenting hazards to health(V15.89) DX:Other specifie d personal history presenting hazards to health(V15.89) Hypertension 2012 DX:Hypertension; COMMENT: Started on Lisinopril 5 mg daily Hypertension 12/17/2012 DX:Hypertension Family History Medical History Relation Name Comments Diabetes Mother mom Ovarian cancer Mother mom Other cancer Sister 1 2 throat Ovarian cancer Sister 2 Ovarian cancer Sister 3 Breast cancer Neg Hx Cancer of Small Bowel Neg Hx Colon cancer Neg Hx Kidney cancer Neg Hx Pancreatic cancer Neg Hx Uterine cancer Neg Hx Relation Name Status Comments Brother Alive Daughter Alive adopted Father Alive Maternal Grandfather Maternal Grandmother Mother mom Alive Paternal Grandfather Paternal Grandmother Sister 1 2 Alive Sister 2 Sister 3 Sister 4 Alive Son 1 Alive Son 2 Alive Social History Tobacco Use Types Packs/Day Years Used Date Smoking Tobacco: Former Cigarettes Smokeless Tobacco: Former Quit: 12/15/2012 Alcohol Use Standard Drinks/Week Comments Yes 0 (1 standard drink = 0.6 oz pur e alcohol) Comments Unknown Sex and Gender Information Value Date Recorded Sex Assigned at Not on file Legal Sex Female 5:45 PM EST Gender Identity Not on file Sexual Orientation Not on file Obstetrics History Last Filed Vital Signs Vital Sign Reading Time Taken Comments Blood Pressure 136/88 03/08/2024 9:35 AM EDT Pulse 103 06/02/2022 9:55 AM EDT Temperature - - Respiratory Rate - - Oxygen Saturation - - Inhaled Oxygen Concentration - - Weight 93.3 kg (205 lb 9.6 oz) 03/08/2024 9:35 A M EDT Height 160 cm (5' 3 ) 03/08/2024 9:35 AM EDT Body Mass Index 36.42 03/08/2024 9:35 AM EDT Plan of Treatment Upcoming Encounters Date Type Department Care Team (Late st Contact Info) Description 01/14/2025 10:30 AM EDT Appointment Radiology Department [address] [address] Health Maintenance Due Date Last Done Comments DTaP,Tdap,and Td Vaccines (1 - Tdap) 1983 Zoster Vaccines (1 of 2) 2014 Cholesterol Screening (Lipid Panel) 07/27/2022 Colorectal Cancer Screening: Colonoscopy 07/27/2022 Depression Screening 07/27/2022 HIV Screening 07/27/2022 Hepatitis C Screening 07/27/2022 Social Influencers of Health Screening 07/27/2022 Hypertension/CHF/CAD Annual BMP Blood Test 08/02/2022 COVID-19 Vaccine ( season) 2024 Influenza Vaccine (#1) 2024 08/29/2011 Breast Cancer Screening 01/01/2026 01/02/20 24, 01/02/2024, 12/06/2022, Additional history exists Cervical Cancer Screening: Pap Smear 03/08/2027 03/08/2024, 09/29/2018 RSV Immunization Patients 60+ Years Old (1 - 1-dose 75+ series) 2039 HIB Vaccines Aged Out No longer eligi ble based on patient's age to complete this topic HPV Vaccines Aged Out No longer eligi ble based on patient's age to complete this topic Hepatitis A Vaccines Aged Out No long er eligible based on patient's age to complete this topic Hepatitis B Vaccines Aged Out No long er eligible based on patient's age to complete this topic IPV Vaccines Aged Out No longer eligi ble based on patient's age to complete this topic MMR Vaccines Aged Out No longer eligi ble based on patient's age to complete this topic Meningococcal ACWY Vaccine Aged Out N o longer eligible based on patient's age to complete this topic Pneumococcal Vaccine: Pediatrics (0 to 5 Years) and At-Risk Patients (6 to 64 Years) Aged Out No longer eligible based on patient's age to complete this topic RSV Immunization Patients Under 20 months Aged Out No longer eligible based on patient's age to complete this topic Varicella Vaccines Aged Out No longer eligible based on patient's age to complete this topic Procedures Procedure Name Priority Date/Time Associated Diagnosis Comments PAP SMEAR Routine 03/08/2024 SCREENING MAMMOGRAPHY BI 2-VIEW BREAST INC CAD Routine 01/02/2024 10:16 AM EDT Encounter for screening mammogram for malignant neoplasm of breast from Last 3 Months or Most Recently Relevant to Health Maintenance Results * Pap smear (03/08/2024) 03/08/2024 Narrative HISTORICAL TESTING LAB RESULTING AGENCY - 03/11/2024 1:36 PM EDT [id number] THINPREP PAP, IMAGED: NEGATIVE FOR SQUAMOUS INTRAEPITHELIAL LESION AND MALIGNANCY TORY BARILLAS , CT(ASCP) (CASE ELECTRONICALLY SIGNED 03 11 2024) RESULT OF APTIMA HIGH RISK HPV ASSAY: HIGH RISK HPV: ??NEGATIVE (SEROTYPES 16,18,31,33,35,39,45,51,52,56,58,59,66,68) COMPLETED ON 2024-03-10 ADEQUACY: SATISFACTORY ENDOCERVICAL/TRANSFORMATION ZONE COMPONENT PRESENT. SOURCE: THINPREP PAP HPV ANY DX: ??REFLEX 16 AND 18, CERVICAL, IMAGED CLINICAL INFORMATION: HPV ANY DIAGNOSIS. MENOPAUSE, PAP HX NEGATIVE, [Z01.419] us Shantel ROD LAB CYTOLOGY ORDERABLES Fin al Result HISTORICAL TESTING LAB RESULTING AGENCY * SCREENING MAMMOGRAPHY BI 2-VIEW BREAST INC CAD (01/02/2024 10:16 AM EDT) Anatomical Region Laterality Modality Radiographic Maegan ging 12/06/2022 10:0 9 AM EDT Narrative 01/04/2024 12:23 PM EDT This is a summary report. The complete report is available in the patient's medical record. If you cannot access the medical record, please contact the sending organization for a detailed fax or copy. Exam: Screening mammogram Findings: Digital bilateral full-field screening mammography is performed with tomosynthesis and interpreted with the aid of computer-aided detection. ??Comparison is made with 12/06/2022 and as far back as 10/01/2019. Breast parenchyma is composed of scattered fibroglandular densities. ??No new suspicious mass, architectural distortion, or suspicious calcifications. Impression: No mammographic evidence of malignancy. BI-RADS 1 - negative Procedure Note Ammy Wisdom MD - 04/04/2024 This is a summary report. The complete report is available in thepatient's medical record. If you cannot access the medical record, pleasecontact the sending organization for a detailed fax or copy. Exam: Screening mammogram Findings: Digital bilateral full-field screening mammography is performedwith tomosynthesis and interpreted with the aid of computer-aideddetection. Comparison is made with 12/06/2022 and as far back as10/01/2019. Breast parenchyma is composed of scattered fibroglandular densities. Nonew suspicious mass, architectural distortion, or suspiciouscalcifications. Impression: No mammographic evidence of malignancy. BI-RADS 1 - negative us Buddy Martínez CNM IMG XR PROCEDURES Final Resul t from Last 3 Months or Most Recently Relevant to Health Maintenance Care Teams Grading Machine Feeder Relationship Specialty Start Date End Date Bryson Hudson MD [address] [facility] [address] [place], [place] PCP - General Internal Medicine 12/16/12
--- OUTSIDE RECORDS SUMMARY | 2024-09-29 12:16 | XMS_ITS | Data Portability ---
Author Organization [place] - [facility], Allergy Address [address] [address] Care Team Providers Care Receipt And Report Clerk Name Role Phone BERE THOMPSON Primary Care Provider Assessment Encounter Date Assessment Date Assessment LastModified by Organization Details LastModified Time 01/25/2024 01/25/2024 58-year-old female presents for left ear fullness. On exam there is a small amount of fungal discharge in the lateral canal removed with suction. Remainder of exam is unremarkable. I recommended a course of clotrimazole which will be sent to pharmacy. Offered follow-up to ensure resolution but she declines and will call for reevaluation if symptoms do not improve. [email or web address] Not available 01/25/2024 10:56:17 09/01/2024 09/01/2024 59yo female with bilateral amplification, [...] hearing loss persists. Patient agrees with plan. [email or web address] Not available 09/01/2024 12:41:03 09/21/2024 09/21/2024 59-year-old female with history of [...] fungus, culture, unspecifi ed specimen 2024 025 [email or web address] [facility], [address], [address], [place], [address], 09/08/2024 10:03:18 culture, bacterial 2024 025 [email or web address] [facility], [address], [address], [place], [address], 09/08/2024 10:03:18 Referral None recorded. Procedures allergy testing, skin [...] ole 1 % topical solution 2024 025 PATRICK [facility][id number], [address] [place], [address], 09/21/2024 09:11:33 clotrimaz ole 1 % topical solution 2023 024 [email or web address] [facility] #[id number], [address] [place], [address], 09/21/2024 09:11:31 Patient TargetsNo targets recorded. Patient InstructionsNo instructions recorded. Reason for Referral None Reported. Results Created Date Observation Date Name Description Value Unit Range Abnormal Flag Note LastModifiedBy Organization Detail LastModifiedTime 04/06/20 24 06/29/2020 imagi ng/di agnos tic resul t No observ ation record ed. [email or web address] Not Available 04:54:27 04/06/20 24 06/29/2020 imagi ng/di agnos tic resul t No observ ation record ed. [email or web address] Not Available 04:54:31 Result Notes None recorded. Problems Name Problem SNOMED Code Status Onset Date Resolution Date Notes Provider Name and Address Organization Details Recorded Time Acute maxillary sinusitis 61383512 Active 2018 Acute maxillary sinusitis , unspecifi ed; Note: Date Diagnosed : 01/28/2019 9:02 AM (J01.00) Not Available [facility] 4 02:43:23 Otorrhea of left ear 18406308619 46012 Active 2016 Otorrhea, left ear; Note: Date Diagnosed : 04/06/2017 1:17 PM (H92.12) Otorrhe a, left ear; Note: Date Diagnosed : 10/07/2016 10:40 AM (H92.12) ; Start Date : 7 Not Available [facility] 4 02:43:28 Foreign body in left ear 45335190086 066758 Active 2022 Foreign body in left ear, initial encounter ; Note: Date Diagnosed : 3 9:19 AM (T16.2XXA ) Not Available [facility] 4 02:43:25 Acute suppurati ve otitis media with spontaneo us rupture of ear drum 29609499 Active 2018 Acute suppurati ve otitis media with spontaneo us rupture of ear drum; Note: Date Diagnosed : 03/28/2019 1:00 PM (382.01) Not Available [facility] 4 02:43:33 Sensorine ural hearing loss in right ear 22701696870 100 Active 2019 Sensorine ural hearing loss, unilatera l, right ear, with restricte d hearing on the contralat eral side; Note: Date Diagnosed : 0 11:27 AM (H90.A21) Not Available [facility] 4 02:43:26 Headache 43585832 Active 2018 Facial pain NOS; Note: Date Diagnosed : 01/28/2019 9:02 AM (R51) Not Available [facility] 4 02:43:32 Marginal perforati on of tympanic membrane 73188186 Active 2019 Other marginal perforati ons of tympanic membrane, left ear; Note: Date Diagnosed : 10/21/2019 10:35 AM (H72.2X2) Not Available [facility] 4 02:43:30 Spontaneo us rupture of left tympanic membrane co-occurr ent and due to acute suppurati ve otitis media 16601232566 02235 Active 2018 Acute suppurati ve otitis media with spontaneo us rupture of ear drum, left ear; Note: Date Diagnosed : 03/28/2019 1:00 PM (H66.012) Not Available [facility] 4 02:43:29 Mixed conductiv e and sensorine ural hearing loss of left ear 55649061156 107 Active 2019 Mixed conductiv e and sensorine ural hearing loss, unilatera l, left ear with restricte d hearing on the contralat eral side; Note: Date Diagnosed : 0 11:27 AM (H90.A32) Not Available [facility] 4 02:43:24 Acute sinusitis 31717877 Active 2019 Other acute sinusitis ; Note: Date Diagnosed : 10/21/2019 10:34 AM (J01.80) Other acute sinusitis ; Note: Date Diagnosed : 10/07/2016 10:40 AM (J01.80) ; Start Date : 7 Not Available [facility] 4 02:43:34 Acute myringiti s of left ear 97369017931 90721 Active 2019 Acute myringiti s, left ear; Note: Date Diagnosed : 0 11:43 AM (H73.002) Not Available [facility] 4 02:43:21 Mixed conductiv e and sensorine ural hearing loss, bilateral 556737071 Active 2016 Mixed conductiv e and sensorine ural hearing loss, bilateral ; Note: Date Diagnosed : 10/07/2016 10:40 AM (H90.6) Not Available [facility] 4 02:43:30 Otalgia of left ear 0976208121 Active 2019 Otalgia, left ear; Note: Date Diagnosed : 10/21/2019 10:35 AM (H92.02) Not Available [facility] 4 02:43:22 Candidal otitis externa 27587160 Active 2023 DANIEL KENNEDY PA-C [address] [place] [address], [place], [address] , [facility] 4 10:56:28 Dermal mycosis 59725686 Active 2023 DANIEL KENNEDY PA-C [address] [place], [place] [address], [address] , [facility] 4 10:56:28 Chronic mycotic otitis externa 086458575 Active 2023 DANIEL KENNEDY PA-C [address] [place], [place] [address], [address] , [facility] 4 10:56:28 Acute serous otitis media of left ear 58501541971 28440 Active 2023 Acute serous otitis media, left ear; Note: Date Diagnosed : 11/10/2023 10:58 AM (H65.02) Not Available [facility] 4 02:43:26 Otorrhea 29584157 Active 2024 TRACI LOYA PA-C [address], [place], [address] , [facility] 5 12:05:52 Nasal congestio n 97648063 Active 2024 TRACI LOYA PA-C [address], [place], [address] , [facility] 5 09:27:47 Pain in face 11749933 Active 2024 TRACI LOYA PA-C [address], [place], [address] , [facility] 09:27:59 Non-aller gic rhinitis 82449411512 1 Active 2024 TRACI LOYA PA-C [address], [place], [address] , [place] - [facility] 09:29:29 Seasonal allergic rhinitis 167899277 Active 2024 TRACI LOYA PA-C [address], [place], [address] , [facility] 09:29:29 Allergic rhinitis 34698121 Active 2024 TRACI LOYA PA-C [address], [place], [address] , [facility] - [facility] 09:29:29 Problem Notes None recorded. Procedures Surgical History None recorded. Imaging Results Imaging Date Name Status [facility]Modified by [facility] Details LastModified Time 06/29/2020 imaging/diag nostic result completed Information not available 04/06/2024 04:54:27 06/29/2020 imaging/diag nostic result completed Information not available 04/06/2024 04:54:31 Procedure Notes None recorded. Medical Equipment None Reported. Allergies Allergen ID Allergen Name Allergen Category Reaction Reaction Severity Criticality Documentation Date Start Date Code Code System Note Provider Name and Address Organization Details Recorded Time 256405 Bactrim medicatio n other Not available Not available 12/29/2023 30392 9 RxNorm React ion: unkno wn, unspe cifie d;; Not Available [facility] 4 01:12:39 763286 Substance with sulfonami de structure and antibacte rial mechanism of action (substanc e) medicatio n other Not available Not available 12/29/2023 87852 8003 SNOMED React ion: unkno wn, unspe cifie d;; Not Available [facility] 4 01:12:42 Medications Name Sig Start Date Stop Date Status Note LastModified by Organization Details LastModified Time ciproflox acin 750 mg tablet TAKE 1 TABLET BY MOUTH TWICE A DAY 09/21 completed Not Available Not Available Not Available azithromy priscila 250 mg tablet 09/21 completed Medicati on ID: [id number] D uration Value: 5 Prescri bed By Name: ADAN Echevarria nd Name: azithrom ycin Sen d Method: E-Prescr ibed Sub s Allowed: subs OK Speci al Instruct ion: 2 tabs day 1, then 1 tab q day for 4 days Med icationG enericNa me: azithrom ycin Not Available Not Available Not Available [...] n cartridge 09/21 completed Medicati on ID: [id number] B rand Name: Nicotrol Send Method: E-Prescr ibed Sub s Allowed: subs OK Medic ationGen ericName : Nicotrol Not Available Not Available Not Available losartan 100 mg-hydroc hlorothia zide 25 mg tablet 05/29 completed Medicati on ID: [id number] D uration Value: 90 Brand Name: losartan -hydroch lorothicameron young Sen d Method: E-Prescr ibed Sub s Allowed: subs OK Speci al Instruct ion: TAKE 1 TABLET BY MOUTH EVERY DAY Medi cationGe nericNam e: losartan -hydroch lorothia maide Not Available Not Available Not Available ofloxacin [...] mg tablet 05/29 completed Medicati on ID: [id number] D uration Value: 90 Brand Name: irbesart an-hydro chloroth iazide S end Method: E-Prescr ibed Sub s Allowed: subs ROSALEE mcclure Instruct ion: TAKE 1 TABLET BY MOUTH [...] ous pen 09/21 completed Medicati on ID: [id number] D uration Value: 30 Brand Name: Lantus [...] Allergy Relief 50 mcg/actua tion nasal spray,devora yoon 2016 active Medicati on ID: [id number] D uration Value: 30 Brand Name: Flonase Allergy Relief S end Method: E-Prescr ibed Sub s Allowed: subs OK Speci al Instruct ion: 2 sprays each nostril once a day Medi cationGe nericNam e: Flonase Allergy Relief Not Available Not Available Not Available Vitals Date Recorded Body height Body mass index (BMI) Body weight Provider Name and Address Organization Details Last Updated DateTime 01/25/2024 160.02 cm 35.1 kg/m2 74883.29 g Janeen Haynes [facility] 01/25/2024 10:30:30 Date Recorded Body height Body mass index (BMI) Body weight Provider Name and Address Organization Details Last Updated DateTime 09/01/2024 160.02 cm 35.1 kg/m2 04003.29 g Carolyn Aggarwal [facility] 09/01/2024 11:05:07 Date Recorded Body height Body mass index (BMI) Body weight Provider Name and Address Organization Details Last Updated DateTime 09/21/2024 160.02 cm 35.1 kg/m2 01332.29 g Cori Brantley [facility] 09/21/2024 09:10:59 Social History None recorded. Functional Status None recorded. Mental Status None recorded. Family History Nothing Reported. Medical History No medical history recorded. Gynecological HistoryNo gynecological history recorded. Obstetrics History GPAL:G 0 P 0 0 0 0 Past Encounters Encounter ID Performer Location Encounter Start Date Encounter Closed Date Diagnosis/Indication Diagnosis SNOMED-CT Code Diagnosis ICD10 Code Diagnosis Note [id number] FREDO CLARK MD [facility] [address] [address] 01/25/2024 10:12:44 01/25/2024 10:39:23 Candidal otitis externa 32626572 B37.84 [id number] FREDO CLARK MD [facility] [address] [address] 09/01/2024 11:00:07 09/01/2024 11:43:44 Otorrhea of left ear 7977534885 550536 H92.12 Otorrhea 26115433 H92.12 Chronic my cotic otitis externa 885633873 H60.399 Dermal mycosis 77761020 B36.9 Candidal o titis externa 92640622 B37.84 [id number] AGUSTINA BELLE MD [facility] [address] [place] [address] 09/21/2024 08:54:08 09/21/2024 09:25:26 Otorrhea of left ear 3898012609 594213 H92.12 Nasal congestion 6120455 0 R09.81 Pain in face 97755204 R5 1.9 Health Concerns Section Related Observation LastModified by Organization Detai ls LastModified Time None Recorded Concern Status LastModified by Organization Details LastModified Time None Recorded Advance Directives Directive None Recorded Payers Encounter Date Sequence Insurance Name Policy Number Policy Mobley Covered Member ID Mobley Member ID Guarantor Name 01/25/2024 1 [facility] - PREFERRED (MEDICARE SUPPLEMENT) [id number] Latesha Garrafa [id number] 01 Latesha Garrafa 09/01/2024 1 [facility] - DIRECT - [place] ZERO (HMO) [id number] Latesha Garrafa [id number] 01 Latesha Garrafa 09/21/2024 1 [facility] - DIRECT CONNECTORCARE TYPE I (HMO) [id number] Latesha Garrafa [id number] 01 Latesha Garrafa Notes Date Note Type Note Provider Name and Address Organization Details Recorded Time 01/25/2024 text/html 58-year-old femcameron roblero presents for evaluation of left ear fullness. This has been present for about 2 weeks. No pain but itching. 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 FREDO CLARK MD 100 [facility],[address], [address], [facility] 09/02/2024 12:54:49 09/21/2024 text/html 59-year-old fema annika with history [...] History of temporary asthma. AGUSTINA BELLE MD [address] [place] [address],[address], [address], [facility] 09/21/2024 17:34:47 OBGyn Episode No OBEpisode recorded.
== END 2024-09-29 11:50 | disposition home or self-care (01) ==
LOC: HO.HAP 11:49
PROVIDERS: Visit Provider Internal Medicine
DX: Z46.1 Encounter for fitting and adjustment of hearing aid (principal); H90.A32 Mixed conductive and sensorineural hearing loss, unilateral, left ear with restricted hearing on the contralateral side
CPT/HCPCS: V5267

== ENCOUNTER 2024-12-23 13:48 | Outpatient (REF) | payer SELFPAY ==
--- OUTSIDE RECORDS SUMMARY | 2024-12-23 13:51 | XMS_ITS | Data Portability ---
Author Organization NETTA Aguilar s, [address] Address [address] [place] [address] Care Team Providers Care Ripsaw Matcher Name Role Phone [facility] Primary Care Provider Assessment No assessment recorded. Plan of Treatment Reminders Order Date Submit Date Provider Last Modified By Organization Details Last Modified Time Details Appointments None recorded. Lab None recorded. Referral None recorded. Procedures None recorded. Surgeries None recorded. Imaging None recorded. Medication Orders amoxicillin 875 mg-potassiu m clavulanate 125 mg tablet 2022 023 [facility][id number], [address] [place], [address], 3 10:43:59 prednisone 20 mg tablet 2022 023 [facility] #[id number], [address] [place], [address], 3 10:43:59 amoxicillin 875 mg-potassiu m clavulanate 125 mg tablet 2022 023 [facility] #[id number], [address] [place], [address], 3 10:25:04 loratadine 10 mg tablet 2022 023 [facility] #[id number], [address] [place], [address], 3 18:48:36 Patient TargetsNo targets recorded. Patient Instructions Encounter Date Encounter Id Patient Instructions Last Modified By Organization Details Last Modified Time 11/29/2022 [id number] cellulitis: care instructions [email or web address] Not available 11/29/2022 18:48:14 Acute Sinusitis: Care Instructions [email or web address] Not available 11/29/2022 18:48:14 Based on your [...] watery post nasal drip. 6. Saline Nasal [place] is recommended. Since an antibiotic was prescribed [...] that are tender Thank you for using [facility] today, please don't hesitate to call or reach out to us if you have any questions or concerns. [email or web address] Not available 11/30/2022 08:07:55 04/16/2023 [id number] Acute Sinusitis: Care Instructions Not available 04/16/2023 10:43:57 Acute Sinusitis: Care Instructions Not available 04/16/2023 10:44:19 Reason for Referral None Reported. Problems Name Problem SNOMED Code Status Onset Date Resolution Date Notes Provider Name and Address Organization Details Recorded Time Diabetes mellitus 72291550 Active 2022 NETTA Fernandez [facility] 3 18:20:24 Hypertensive disorder 36361460 Active 2022 NETTA Fernandez [facility] 3 18:20:30 Problem Notes None recorded. Medical Equipment None Reported. Allergies Allergen ID Allergen Name Allergen Category Reaction Reaction Severity Criticality Documentation Date Start Date Code Code System Note Provider Name and Address Organization Details Recorded Time 930238 Substance with sulfonami de structure and antibacte rial mechanism of action (substanc e) medicatio n hives Not available Not available 11/29/2022 76046 8003 SNOMED NETTA Fernandez [facility] 3 18:19:43 520397 Bactrim medicatio n hives Not available Not available 04/16/2023 75736 9 RxNorm NETTA Mirza - [facility] [...] Updated DateTime 3 160.02 cm 35.1 kg/m2 92426.2 9 g 9 99 % 99 % 70 /min 20 /min 96.6 [degF] 181 mm[Hg] 110 mm[Hg] SELIN CHADWICK - [facility] 3 18:24:07 Date Recorded Systolic blood pressure Diastolic blood pressure Provider Name and Address Organization Details Last Updated DateTime 11/29/2022 160 mm[Hg] 94 mm[Hg] NETTA HOPKINS [address] [place], [address], [place] - [facility] 11/29/2022 18:46:00 Date Recorded Body height Body mass index (BMI) Body weight Respiratory rate Body temperature Oxygen saturation Oxygen saturation in Arterial blood by Pulse oximetry Heart rate Systolic blood pressure Diastolic blood pressure Provider Name and Address Organization Details Last Updated DateTime 3 160.02 cm 35.1 kg/m2 02393.2 9 g 18 /min 97.5 [degF] 97 % 97 % 103 /min 155 mm[Hg] 92 mm[Hg] ROMAIN MIRANDA [place] - [facility] 3 10:27:22 Social History Question Answer Notes LastModified by Organizat ion Details LastModified Time Tobacco Smoking Status Current Every Day Smoker SELIN bernal [place] - [facility] 11/29/2022 18:21:41 What Is Your Level Of Alcohol Consumption? Moderate [email or web address] Information not available 11/29/2022 How Much Tobacco Do You Smoke? 0.25 PPD [email or web address] Information not available 11/29/2022 Do You Use Any Illicit Or Recreational Drugs? No [email or web address] Information not available 11/29/2022 Have You Recently Traveled Abroad? No Information not available 11/29/2022 Do You Or Have You Ever Used Any Other Forms Of Tobacco Or Nicotine? No [email or web address] Information not available 11/29/2022 Sex: Unknown Functional Status None recorded. Mental Status None recorded. Family History Relationship Description Onset Age of this Age Resolved Age Notes LastModified by Organization Details LastModified Time Father No current problems or disability [email or web address] Not available 11/29 18:21:17 Mother No current problems or disability [email or web address] Not available 11/29 18:21:17 Medical History No medical history recorded. Gynecological HistoryNo gynecological history recorded. Obstetrics History GPAL:G 0 P 0 0 0 0 Past Encounters Encounter ID Performer Location Encounter Start Date Encounter Closed Date Diagnosis/Indication Diagnosis SNOMED-CT Code Diagnosis ICD10 Code Diagnosis Note [id number] [address] [place] [address] 05/21/2022 14:15:28 05/21/2022 18:46:20 [id number] [address] [place] [address] 12/03/2019 12:46:35 12/03/2019 13:31:47 [id number] [address] [place] [address] 02/27/2022 15:10:38 02/27/2022 16:01:29 [id number] NETTA HOPKINS [address] [place] [address] 11/29/2022 17:02:56 11/29/2022 18:51:39 Acute sinusitis 99069883 J01.90 Cellulitis of face 2001 L03.211 Differenti al: Early Shingles - call me tomorrow if you wake up with pimple clusters on that red area. I would stop using the eyepads incase this is an allergic reaction. Hypertensive disorder 38 780146 I10 Your blood pressure was elevated today - you need to follow up with your PCP for this. Medication may need to be adjusted. Please keep a journal of AM and PM readings from a home cuff. This will help adjust medication s. DO NOT TAKE SUDEFED! [id number] [place] [address] [place] [address] 04/16/2023 09:32:42 04/16/2023 10:45:30 Acute sinusitis 07149487 J01.90 discussed watching blood sugar closely, short [...] Recorded Advance Directives Directive None Recorded Payers Insurance Date Sequence Insurance Name Policy Number Policy Mobley Covered Member ID Mobley Member ID Guarantor Name 04/16/2023 1 [facility] [employer] - TOGETHER (MEDICAID HMO) [id number] Latesha Douglas [id number] 1 Latesha Douglas Notes Date Note Type [...] surgery. NETTA HOPKINS [address] [place], [address], [place] [facility] 11/30/2022 08:08:44 3 text/html Sinus Complaints UCReported bypatient.Location:pain behind the eyes;sinus pain;facial pain;pain in the cheek;sinus pressure; left side Associated Symptoms:nasal discharge from both nostrils;Post nasal drip;nasal passage blockage left Onset/Timing:progressiv shelby worse over last 2weeks Duration:long standing Severity:moderate Prior Treatmentnasal saline rinse; oral decongestant; nasal steroids: Acosta Jacobo MD [address] [place], [address], [facility] - [facility] 04/16/2023 10:46:05 OBGyn Episode No OBEpisode recorded.
--- OUTSIDE RECORDS SUMMARY | 2024-12-23 13:52 | XMS_ITS | Clinical Summary ---
Author Organization [facility] Address [address] [place] [address] Care Team Providers Care Religious Leader Name Role Phone Bryson Hudson MD Primary Care Provider [phone] Surgical History Surgery Date Site/Laterality Comments OTHER [...] 01/14/2025 10:30 AM EDT Appointment Radiology Department [address] [id number] Health Maintenance Due Date Last Done Comments DTaP,Tdap,and Td Vaccines (1 - Tdap) 1983 Pneumococcal Vaccine: 50+ Years (1 of 1 - PCV) 2014 Zoster Vaccines (1 of 2) 2014 Cholesterol Screening (Lipid Panel) 07/27/2022 Colorectal Cancer Screening: Colonoscopy 07/27/2022 Depression Screening 07/27/2022 HIV Screening 07/27/2022 Hepatitis C Screening 07/27/2022 Social Influencers of Health Screening 07/27/2022 Hypertension/CHF/CAD Annual BMP Blood Test 08/02/2022 COVID-19 Vaccine ( season) 2024 Influenza Vaccine (Season Ended) 2025 08/29/2011 Breast Cancer Screening 01/01/2026 01/02/20 24, 01/02/2024, 12/06/2022, Additional history exists Cervical Cancer Screening: Pap Smear 03/08/2027 03/08/2024, 09/29/2018 RSV Immunization Adult Patients (1 - 1-dose 75+ series) 2039 HIB [...] patient's age to complete this topic Meningococcal B Vaccine Aged Out No l onger eligible based on patient's age to complete [...] RESULTING AGENCY - 03/11/2024 1:36 PM EDT [id number] THINPREP PAP, IMAGED: NEGATIVE FOR SQUAMOUS INTRAEPITHELIAL LESION AND MALIGNANCY TORY BARILLAS , RAQUEL(ASCP) (CASE ELECTRONICALLY SIGNED 03 11 2024) RESULT OF APTIMA HIGH RISK HPV ASSAY: HIGH RISK HPV: ??NEGATIVE (SEROTYPES 16,18,31,33,35,39,45,51,52,56,58,59,66,68) COMPLETED ON 2024-03-10 ADEQUACY: SATISFACTORY ENDOCERVICAL/TRANSFORMATION ZONE COMPONENT PRESENT. SOURCE: THINPREP PAP HPV ANY DX: ??REFLEX 16 AND 18, CERVICAL, IMAGED CLINICAL INFORMATION: HPV ANY DIAGNOSIS. MENOPAUSE, PAP HX NEGATIVE, [Z01.419] Shantel Cruz [facility] CYTOLOGY ORDERABLES Fin al Result HISTORICAL [...] evidence of malignancy. BI-RADS 1 - negative Buddy Martínez CNM IMG XR PROCEDURES Final Resul t from Last 3 Months or Most Recently Relevant to Health Maintenance Care Teams Religious Leader Relationship Specialty [place] [address] [place] [address] PCP - General Internal Medicine 12/16/12
--- OUTSIDE RECORDS SUMMARY | 2024-12-23 13:52 | XMS_ITS | Data Portability ---
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 Patient consented to video & audio visit Patient was located in the [facility]. Provider was located in the office. No other persons participated in the telemedicine visit except for the patient unless otherwise indicated here. {{}} Total time of visit was 19 minutes. [email or web address] Not available 03/18/2023 13:41:56 Plan of Treatment Reminders Order Date Submit Date Provider Last Modified By Organization Details Last Modified Time Details Appointments FOLLO W UP 2024 08:45A M Bere hutchinson MD Not available Not available Not available Lab CBC w/ auto diff 2023 024 PATRICK [facility] (Centralized Electronic Ordering - All Locations), Patient Can Go To The Location Of Their Choice, 07/31/2024 08:06:55 CMP, serum or plasm a 2023 024 PATRICK [facility] (Centralized Electronic Ordering - All Locations), Patient Can Go To The Location Of Their Choice, [id number] 07/31/2024 08:06:56 lipid panel , serum 2023 024 PATRICK [facility] (Centralized Electronic Ordering - All Locations), Patient Can Go To The Location Of Their Choice, 07/31/2024 08:06:57 HbA1c (hemo globi n A1c), blood 2023 024 PATRICK [facility] (Centralized Electronic Ordering - All Locations), Patient Can Go To The Location Of Their Choice, 07/31/2024 08:06:58 album in/cr eatin ine, mass ratio , urine 2023 024 PATRICK [facility] (Centralized Electronic Ordering - All Locations), Patient Can Go To The Location Of Their Choice, 07/31/2024 08:06:57 hemog lobin A1C, finge rstic k 2022 023 PATRICK In-Office Order, Internal Use Only DO Not Attach Compendium DO Not Attach Compendium, Do Not Delete/merge, [id number] 06/23/2023 16:09:28 Referral hand surge on refer ral 2024 025 Shahbaz Trimble MD, [address] [place] [address] , [place] [address], [place], [address], 11/17/2024 10:10:47 ondina ludwig ist refer ral - Needs colon cance r scree anushka 2022 023 [email or web address] [facility], [address] [facility], [place], [address], 06/25/2023 09:53:26 gener al surge on refer ral - Large mass to poste rior left neck x years ? lipom a, pain, swell ing affec ting ADLS. 2022 023 [facility] General Surgery, [address] [place] [address] Quentin Jarquin [facility], [place], [address], 03/20/2023 12:39:15 Procedures colon oscop y taniya reveles (PROC ) 2022 023 In-Office Order, Internal Use Only DO Not Attach Compendium DO Not Attach Compendium, Do Not Delete/merge, [id number] 06/24/2023 11:50:23 Surgeries None recor ded. Imaging US, neck, soft tissu e - 2 jemma s poste rior, left side of neck- size of a baseb all, r/o lipom a vs cyst 2022 023 [email or web address] [facility] Radiology, [address] [facility], [place], [address], 04/16/2023 10:48:42 Medication Orders clotr imazo le 1 % topic al solut ion 2023 024 [email or web address] [facility] #[id number], [address] [place], [address], 11/14/2024 09:02:21 Patad ay Once Daily Relie f 0.2 % eye drops 2023 024 PATRICK [facility] #[id number], [address] [place], [address], 07/13/2024 10:43:50 Patient TargetsNo targets recorded. Patient Instructions Encounter Date Encounter Id Patient Instructions Last Modified By Organization Details Last Modified Time 03/18/2023 [id number] lipoma: care instructions [email or web address] Not available 03/18/2023 13:44:48 To call or retur n for worsening or concerns [email or web address] Not available 03/18/2023 13:44:55 06/23/2023 [id number] type 2 diabetes: care instructions [email or web address] Not available 06/23/2023 15:57:39 learning about colon cancer acennerazzo Not available 06/23/2023 15:56:40 11/09/2023 [id number] managing your allergies: care instructions pmadden Not available 11/09/2023 16:42:43 saline nasal washes: care instructions pmadden Not available 11/09/2023 16:42:43 otomycosis: care instructions pmadden Not available 11/09/2023 16:42:43 allergies: care instructions pmadden Not available 11/09/2023 16:42:43 allergic conjunctivitis in teens: care instructions pmadden Not available 11/09/2023 16:42:43 Patient will fol low up and keep appointment as scheduled. pmadden Not available 11/09/2023 16:42:10 07/13/2024 [id number] hearing loss: ca re instructions acennerazzo Not available 07/13/2024 11:50:05 gastroesophageal reflux disease (GERD): care instructions acennerazzo Not available 07/13/2024 11:50:05 high blood pressure: care instructions acennerazzo Not available 07/13/2024 11:45:19 learning about h igh blood pressure acennerazzo Not available 07/13/2024 11:45:20 type 2 diabetes: care instructions acennerazzo Not available 07/13/2024 11:28:46 11/14/2024 [id number] tennis elbow: ca re instructions pmadden Not available 11/14/2024 09:55:54 tennis elbow: exercises pmadden Not available 11/14/2024 09:55:54 Patient will fol low up and keep appointment as scheduled. pmadden Not available 11/14/2024 09:57:46 Reason for Referral General Surgeon Referral for Lipoma of skin Large mass to posterior left neck x years ? lipoma, pain, swelling affecting ADLS. 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 for Screening for malignant neoplasm of colon Needs colon cancer screening Referring Physician: Bere Hudson, Family Medicine, Encounter Date: 06/23/2023 Hand Surgeon Referral for La teral epicondylitis of left humerus Referring Physician: Hayden Moreno, Internal Medicine, Encounter Date: 11/14/2024 Results Created Date Observation Date Name Description Value Unit Range Abnormal Flag Note LastModifiedBy Organization Detail LastModifiedTime 06/23/2006/23/2023 hemog lobin A1C, finge rstic k A1C 6.0 % 4-6 normal Not Available In-Office Order Internal Use Only DO Not Attach Compendium DO Not Attach Compendium, Do Not Delete/merge, [id number] 06/23/2023 15:57:06 07/29/20 24 07/30/2024 CBC WITH DIFFE RENTI AL/PL ATELE T WBC 8.1 x10e3 /uL 3.4-10 .8 normal Not Available [facility] ([facility]) [address] [place], [address], 07/31/2024 08:06:55 07/29/20 24 07/30/2024 CBC WITH DIFFE RENTI AL/PL ATELE T RBC 4.51 x10e6 /uL 3.77-5 .28 normal Not Available [facility] ([facility]) [address] [place], [address], 07/31/2024 08:06:55 07/29/20 24 07/30/2024 CBC WITH DIFFE RENTI AL/PL ATELE T hemoglobin 13.8 g/dL 11.1-1 5.9 normal Not Available [facility] ([facility]) [address] [facility], [place], [address], 07/31/2024 08:06:55 07/29/20 24 07/30/2024 CBC WITH DIFFE RENTI AL/PL ATELE T hematocrit 41.3 % 34.0-4 6.6 normal Not Available [facility] ([facility]) [address] [place], [address], 07/31/2024 08:06:55 07/29/20 24 07/30/2024 CBC WITH DIFFE RENTI AL/PL ATELE T MCV 92 fL 79-97 normal Not Available [facility] ([facility]) [address] [place], [address], 07/31/2024 08:06:55 12/13/20 24 07/30/2024 CBC WITH DIFFE RENTI AL/PL ATELE T MCH 30.6 pg 26.6-3 3.0 normal Not Available [facility] ([facility]) [address] [facility], [place], [address], 07/31/2024 08:06:55 07/29/20 24 07/30/2024 CBC WITH DIFFE RENTI AL/PL ATELE T MCHC 33.4 g/dL 31.5-3 5.7 normal Not Available [facility] ([facility]) [address] [facility], [place], [address], 07/31/2024 08:06:55 07/29/20 24 07/30/2024 CBC WITH DIFFE RENTI AL/PL ATELE T RDW 13.3 % 11.7-1 5.4 Not Available [facility] ([facility]) [address] [facility], [place], [address], 07/31/2024 08:06:55 07/29/20 24 07/30/2024 CBC WITH DIFFE RENTI AL/PL ATELE T platelets 204 x10e3 /uL 150-45 0 normal Not Available [facility] ([facility]) [address] [facility], [place], [address], 07/31/2024 08:06:55 07/29/20 24 07/30/2024 CBC WITH DIFFE RENTI AL/PL ATELE T neutrophils 55 % not estab. normal Not Available [facility] ([facility]) [address] [facility], [place], [address], 07/31/2024 08:06:55 07/29/20 24 07/30/2024 CBC WITH DIFFE RENTI AL/PL ATELE T lymphs 35 % not estab. normal Not Available [facility] ([facility]) [address] [place], [address], 07/31/2024 08:06:55 07/29/20 24 07/30/2024 CBC WITH DIFFE RENTI AL/PL ATELE T monocytes 7 % not estab. normal Not Available [facility] ([facility]) [address] [facility], [place], [address], 07/31/2024 08:06:55 07/29/20 24 07/30/2024 CBC WITH DIFFE RENTI AL/PL ATELE T eos 2 % not estab. normal Not Available [facility] ([facility]) [address] [facility], [place], [address], 07/31/2024 08:06:55 07/29/20 24 07/30/2024 CBC WITH DIFFE RENTI AL/PL ATELE T basos 1 % not estab. normal Not Available [facility] ([facility]) [address] [facility], [place], [address], 07/31/2024 08:06:55 07/29/20 24 07/30/2024 CBC WITH DIFFE RENTI AL/PL ATELE T immature cells FOOD SANITARIAN Not Available [facility] ([facility]) [address] [place], [address], 07/31/2024 08:06:55 07/29/20 24 07/30/2024 CBC WITH DIFFE RENTI AL/PL ATELE T neutrophils (absolute) 4.5 x10e3 /uL 1.4-7. 0 normal Not Available [facility] ([facility]) [address] [facility], [place], [address], 07/31/2024 08:06:55 07/29/20 24 07/30/2024 CBC WITH DIFFE RENTI AL/PL ATELE T lymphs (absolute) 2.9 x10e3 /uL 0.7-3. 1 normal Not Available [facility] ([facility]) [address] [place], [address], 07/31/2024 08:06:55 07/29/20 24 07/30/2024 CBC WITH DIFFE RENTI AL/PL ATELE T monocytes(ab solute) 0.5 x10e3 /uL 0.1-0. 9 normal Not Available [facility] ([facility]) [address] [facility], [place], [address], 07/31/2024 08:06:55 07/29/20 24 07/30/2024 CBC WITH DIFFE RENTI AL/PL ATELE T eos (absolute) 0.1 x10e3 /uL 0.0-0. 4 normal Not Available [facility] ([facility]) [address] [facility], [place], [address], 07/31/2024 08:06:55 07/29/20 24 07/30/2024 CBC WITH DIFFE RENTI AL/PL ATELE T baso (absolute) 0.1 x10e3 /uL 0.0-0. 2 normal Not Available [facility] ([facility]) [address] [facility], [place], [address], 07/31/2024 08:06:55 07/29/20 24 07/30/2024 CBC WITH DIFFE RENTI AL/PL ATELE T immature granulocytes 0 % not estab. Not Available [facility] ([facility]) [address] [place], [address], 07/31/2024 08:06:55 07/29/20 24 07/30/2024 CBC WITH DIFFE RENTI AL/PL ATELE T immature grans (abs) 0.0 x10e3 /uL 0.0-0. 1 Not Available [facility] ([facility]) [address] [place], [address], 07/31/2024 08:06:55 07/29/20 24 07/30/2024 CBC WITH DIFFE RENTI AL/PL ATELE T NRBC FOOD SANITARIAN Not Available [facility] ([facility]) [address] [place], [address], 07/31/2024 08:06:55 07/29/20 24 07/30/2024 CBC WITH DIFFE BALWINDER AL/PL SUGEY T hematology comments: FOOD SANITARIAN Not Available [facility] ([facility]) [address] [facility], [place], [address], 07/31/2024 08:06:55 07/29/20 24 07/29/2024 COMP. METAB OLIC PANEL (14) glucose 145 mg/dL 70-99 above high normal Not Available [facility] ([facility]) [address] [facility] [place], [address], 07/31/2024 08:06:56 07/29/20 24 07/29/2024 COMP. METAB OLIC PANEL (14) BUN 15 mg/dL 8-27 normal Not Available [facility] ([facility]) [address] [facility], [place], [address], 07/31/2024 08:06:56 07/29/20 24 07/29/2024 COMP. METAB OLIC PANEL (14) creatinine 0.81 mg/dL 0.57-1 .00 normal Not Available [facility] ([facility]) [address] [facility] [place], [address], 07/31/2024 08:06:56 07/29/20 24 07/29/2024 COMP. METAB OLIC PANEL (14) eGFR 83 mL/mi n/1.7 3 >59 normal Not Available [facility] ([facility]) [address] [place], [address], 07/31/2024 08:06:56 07/29/20 24 07/29/2024 COMP. METAB OLIC PANEL (14) BUN/creatini ne ratio 19 12-28 normal Not Available [facility] ([facility]) [address] [place], [address], 07/31/2024 08:06:56 07/29/20 24 07/29/2024 COMP. METAB OLIC PANEL (14) sodium 140 mmol/ L 134-14 4 normal Not Available [facility] ([facility]) [address] [facility] [place], [address], 07/31/2024 08:06:56 07/29/20 24 07/29/2024 COMP. METAB OLIC PANEL (14) potassium 4.3 mmol/ L 3.5-5. 2 normal Not Available [facility] ([facility]) [address] [facility] [place], [address], 07/31/2024 08:06:56 07/29/20 24 07/29/2024 COMP. METAB OLIC PANEL (14) chloride 100 mmol/ L 96-106 normal Not Available [facility] ([facility]) [address] [facility] [place], [address], 07/31/2024 08:06:56 07/29/20 24 07/29/2024 COMP. METAB OLIC PANEL (14) carbon dioxide, total 24 mmol/ L 20-29 normal Not Available [facility] ([facility]) [address] [facility] [place], [address], 07/31/2024 08:06:56 07/29/20 24 07/29/2024 COMP. METAB OLIC PANEL (14) calcium 10.0 mg/dL 8.7-10 .3 normal Not Available [facility] ([facility]) [address] [facility] [place], [address], 07/31/2024 08:06:56 07/29/20 24 07/29/2024 COMP. METAB OLIC PANEL (14) protein, total 7.8 g/dL 6.0-8. 5 normal Not Available [facility] ([facility]) [address] [facility] [place], [address], 07/31/2024 08:06:56 07/29/20 24 07/29/2024 COMP. METAB OLIC PANEL (14) albumin 4.5 g/dL 3.8-4. 9 normal Not Available [facility] ([facility]) [address] [place], [address], 07/31/2024 08:06:56 07/29/20 24 07/29/2024 COMP. METAB OLIC PANEL (14) globulin, total 3.3 g/dL 1.5-4. 5 Not Available [facility] ([facility]) [address] [facility] [place], [address], 07/31/2024 08:06:56 07/29/20 24 07/29/2024 COMP. METAB OLIC PANEL (14) bilirubin, total 0.4 mg/dL 0.0-1. 2 normal Not Available [facility] ([facility]) [address] [facility] [place], [address], 07/31/2024 08:06:56 07/29/20 24 07/29/2024 COMP. METAB OLIC PANEL (14) alkaline phosphatase 67 IU/L 44-121 normal Not Available [facility] ([facility]) [address] [facility] [place], [address], 07/31/2024 08:06:56 07/29/20 24 07/29/2024 COMP. METAB OLIC PANEL (14) AST (SGOT) 68 IU/L 0-40 above high normal Not Available [facility] ([facility]) [address] [facility] [place], [address], 07/31/2024 08:06:56 07/29/20 24 07/29/2024 COMP. METAB OLIC PANEL (14) ALT (SGPT) 48 IU/L 0-32 above high normal Not Available [facility] ([facility]) [address] [facility] [place], [address], 07/31/2024 08:06:56 07/29/20 24 07/29/2024 LIPID PANEL cholesterol, total 183 mg/dL 100-19 9 normal Not Available [facility] ([facility]) [address] [facility] [place], [address], 07/31/2024 08:06:56 07/29/20 24 07/29/2024 LIPID PANEL triglyceride s 200 mg/dL 0-149 above high normal Not Available [facility] ([facility]) [address] [facility] [place], [address], 07/31/2024 08:06:56 07/29/20 24 07/29/2024 LIPID PANEL HDL cholesterol 46 mg/dL >39 normal Not Available [facility] ([facility]) [address] [facility] [place], [address], 07/31/2024 08:06:56 07/29/20 24 07/29/2024 LIPID PANEL VLDL cholesterol roseann 34 mg/dL 5-40 Not Available [facility] ([facility]) [address] [place], [address], 07/31/2024 08:06:56 07/29/20 24 07/29/2024 LIPID PANEL LDL chol calc ([facility]) 103 mg/dL 0-99 above high normal Not Available [facility] ([facility]) [address] [facility] [place], [address], 07/31/2024 08:06:56 07/29/20 24 07/29/2024 LIPID PANEL LDL calc comment: FOOD SANITARIAN Not Available [facility] ([facility]) [address] [place], [address], 07/31/2024 08:06:56 07/29/20 24 07/31/2024 ALBUM IN/CR EATIN INE RATIO ,URIN E creatinine, urine 61.1 mg/dL not estab. normal Not Available [facility] ([facility]) [address] [place], [address], 07/31/2024 08:06:57 07/29/20 24 07/31/2024 ALBUM IN/CR EATIN INE RATIO ,URIN E albumin, urine 17.2 ug/mL not estab. Not Available [facility] ([facility]) [address] [facility] [place], [address], 07/31/2024 08:06:57 07/29/20 24 07/31/2024 ALBUM IN/CR EATIN INE RATIO ,URIN E alb/creat ratio 28 mg/g_ creat 0-29 Tiarra l: 0 - 29 Moder ately incre ased: 30 - 300 Sever shelby incre ased: >300 Not Available [facility] ([facility]) [address] [facility], [place], [address], 07/31/2024 08:06:57 07/29/20 24 07/30/2024 HEMOG LOBIN A1C hemoglobin A1C 8.1 % 4.8-5. 6 above high normal Predi abete s: 5.7 - 6.4 Diabe jay jay: >6.4 Glyce cinthya contr ol for adult s with diabe jay jay: <7.0 Not Available [facility] ([facility]) [address] [facility], [place], [address], 07/31/2024 08:06:58 05/18/20 23 05/18/2023 US, head + neck, soft tissu e US Soft Tissue Head/N monica Reason : 2 palpab le areas in the sandblaster paint sprayer ior neck. COMPAR DAYAN: None FINDIN GS: High-r esolut ion, linear array imagin g of the superf icial soft tissue s of the sandblaster paint sprayer ior neck was perfor med in the area of the patien t's sympto ms. In the sandblaster paint sprayer ior lower neck at the midlin e there is a 5.5 x 6.9 x 2.0 cm ovoid mass within the subcut aneous soft tissue s, the echote xture is simila r to adjace nt subcut aneous fat except centra lly there is a region of increa sed echoge nicity . Additi onal left sandblaster paint sprayer ior neck mass measur ing 2.6 x 2.9 x 0.8 cm, simila r echoge nicity to adjace nt fat. IMPRES REGLA: There are 2 adjace nt masses in the sandblaster paint sprayer ior neck with imagin g charac terist [...] r charac teriza tion. An action able messag e (Jose w) has been commun icated via the [employer] Action able Findin gs system on 023 1:44 PM, Messag e [place] [id number]. WSN: [id number] Orderi ng Physic sandi: Brandy CHADWICK, Ann Marie Kruse Dictat ed By: Maico Bustamante MD Dictat ed Date/T enedina: 1:44 pm Review ed By: Maico Bustamante MD Signed By: Maico Bustamante MD Signed Date/T enedina: 1:44 pm Transc ribed By: DAVID Transc ribed Date/T enedina: 1:40 pm Patien t Class: Outpat ient [email or web address] [facility] (Outpt Imaging) [address], [place], [address], 05/20/2023 13:42:16 06/25/20 23 12/06/2022 MAMMO , scree anushka, digit al, bilat eral No observ ation record ed. [email or web address] Not Available 06/25 14:14:30 07/18/20 24 01/02/2024 MAMMO , scree anushka, digit al, bilat eral No observ ation record ed. [email or web address] [facility] [address] [facility] [address], [place], [address], 07/18/2024 11:44:19 Result Notes None recorded. Problems Name Problem SNOMED Code Status Onset Date Resolution Date Notes Provider Name and Address Organization Details Recorded Time Acute sinusiti s 94758758 Completed 201203/07/2014 RECORDED 04/19/20 13 9:49AM BY NETTA PARRISH, ANNOTATI ON/ADDEN HILDA arreguin, [place] null, [facility] 6 10:25:59 Adult health examinat ion Completed 201307/25/2014 Sola arreguin [place] null, [facility] 6 10:25:59 Screenin g for malignan t neoplasm of breast Completed 200803/07/2014 RECORDED 07/09/20 09 12:21PM BY BERE GREEN MD, ANNOTATI ON/ADDEN DUM Sola Lili-Ma ttMIMI gipson null, [facility] 6 10:25:59 Screenin g for malignan t neoplasm of colon Completed 201303/07/2014 RECORDED 10/20/19 14 2:12PM BY BURTON PALMA MA, ANNOTATI ON/ADDEN DUM Sola Lili-Mimi arreguin [place] null, [facility] 6 10:25:59 Cough [id number] Completed 201312/01/2015 Sola arreguin [place] null, [facility] 6 10:25:59 Tobacco dependen ce syndrome 78281888 Completed 201203/07/2014 RECORDED 12/29/19 13 8:41AM BY SATHYA STALEY I, ANNOTATI ON/ADDEN DUM Sola Lili-MIMI [place], [facility] 6 10:25:59 Hyperhid rosis [id number] Completed 201303/07/2014 RECORDED 10/11/19 14 8:58AM BY SATHYA STALEY I, ANNOTATI ON/ADDEN DUM Sola Lili-Ma MIMI arreguin null, [facility] 6 10:25:59 Disorder of sweat gland 78573862 Completed 201203/07/2014 RECORDED 12/08/19 13 8:30AM BY HERMINIA BLANCO MA, ANNOTATI ON/ADDEN DUM Sola Lili-Ma ttMIMI gipson, [facility] 6 10:25:59 Effect of exposure to external cause [id number] Completed 201203/07/2014 RECORDED 12/08/19 13 8:30AM BY HERMINIA BLANCO MA, MARCELLE ON/ADDEN DUM MIMI Gregory, [facility] 6 10:25:59 Elevated blood-pr essure reading without diagnosi s of hyperten regla 043505022 Completed 201203/07/2014 RECORDED 12/29/19 13 8:41AM BY MARCELLE CAMACHO ON/ADDEN DUM MIMI Gregory, [facility] 6 10:25:59 Influenz a vaccine needed [id number] 06 Completed 201203/07/2014 RECORDED 05/19/20 13 8:58AM BY BERE GREEN MD, OFFICE VISIT MIMI Gregory, [facility] 6 10:25:59 Tobacco user 167719260 Active 2013 Not Available [facility] 2 13:54:49 History of clinical finding in subject [id number] Completed 201207/25/2014 MIMI Gregory, [facility] 6 10:25:59 Tobacco user 626618405 Completed 201203/07/2014 RECORDED 04/19/20 13 9:40AM BY EDDIE EL MA, MARCELLE ON/ADDEN DUM MIMI Gregory, [facility] 6 10:25:59 Headache 58968448 Completed 201312/01/2015 MIMI Gregory, [facility] 6 10:25:59 Hearing loss 90944744 Active 2013 Has hearing aids and is followed by Dr Chery Not Available [facility] 2 13:54:49 [facility] hyperten regla 44965025 Active 2013 well-con trolled with meds Not Available [facility] 2 13:54:49 [facility] hyperten regla 84967606 Completed 201203/07/2014 RECORDED 04/08/20 13 2:23PM BY HERMINIA BLANCO MA, MARCELLE ON/ADDEN DUM MIMI Gregory, [facility] 6 10:25:59 Insect bite to leg - nonvenom ous [id number] Completed 201203/07/2014 RECORDED 12/08/19 13 8:30AM BY HERMINIA BLANCO MA, ANNOTATI ON/ADDEN DUM MIMI Gregory, [facility] 6 10:25:59 Obesity 714649264 Active 2013 Not Available [facility] 2 13:54:49 Adult health examinat ion Completed 201203/07/2014 RECORDED 12/08/19 13 8:30AM BY HERMINIA BLANCO MA, ANNOTATI ON/ADDEN DUM MIMI Gregory, [facility] 6 10:25:59 Administ ration of diphther ia, pertussi s, and tetanus vaccine Completed 201203/07/2014 RECORDED 04/08/20 13 2:22PM BY HERMINIA BLANCO MA, ANNOTATI ON/ADDEN DUM MIMI Gregory, [facility] 6 10:25:59 Exposure to organism Completed 201203/07/2014 IMPRESSI ON: DUE FOR REPEAT TEST. FIRST TESTED 12/09/12; RECORDED 05/19/20 13 8:32AM BY BURTON PALMA MA, MARCELLE ON/ADDEN DUM MIMI Gregory, [facility] 6 10:25:59 Candidal vulvovag initis 06443386 Completed 201203/07/2014 RECORDED 12/08/19 13 8:30AM BY HERMINIA BLANCO MA, ANNOTATI ON/ADDEN DUM Sola Lili-Ma ttMIMI gipson, [facility] 6 10:25:59 Acute sinusiti s 65455756 Completed 201203/27/2014 RECORDED 04/19/20 13 9:49AM BY NETTA PARRISH, ANNOTATI ON/ADDEN DUM Sola Lili-Ma ttleonela, MIMI null, [facility] 6 10:25:59 Screenin g for malignan t neoplasm of breast Completed 200803/27/2014 RECORDED 07/09/20 09 12:21PM BY BERE GREEN MD, ANNOTATI ON/ADDEN DUM Sola Lili-Ma MIMI arreguin null, [facility] 6 10:25:59 Screenin g for malignan t neoplasm of colon Completed 201303/27/2014 RECORDED 10/20/19 14 2:12PM BY BURTON PALMA MA, ANNOTATI ON/ADDEN DUM Sola Lili-Ma MIMI arreguin, [facility] 6 10:25:59 Tobacco dependen ce syndrome 65836931 Completed 201203/27/2014 RECORDED 12/29/19 13 8:41AM BY SATHYA STALEY I ANNOTATI ON/ADDEN DUM Sola Lili-MIMI [place], [facility] 6 10:25:59 Hyperhid rosis 943381649 Completed 201303/27/2014 RECORDED 10/11/19 14 8:58AM BY SATHYA STALEY I, ANNOTATI ON/ADDEN DUM Sola Lili-Ma MIMI arreguin, [facility] 6 10:25:59 Disorder of sweat gland 33423285 Completed 201203/27/2014 RECORDED 12/08/19 13 8:30AM BY HERMINIA MIMI BLANCO ANNOTATI ON/ADDEN DUM MIMI Gregory, [facility] 6 10:25:59 Effect of exposure to external cause 64747005 Completed 201203/27/2014 RECORDED 12/08/19 13 8:30AM BY HERMINIA BLANCO MA, ANNOTATI ON/ADDEN DUM MIMI Gregory, [facility] 6 10:25:59 Elevated blood-pr essure reading without diagnosi s of hyperten regla 465098498 Completed 201203/27/2014 RECORDED 12/29/19 13 8:41AM BY MARCELLE CAMACHO ON/ADDEN DUM MIMI Gregory, [facility] 6 10:25:59 Influenz a vaccine needed 12010171234 06 Completed 201203/27/2014 RECORDED 05/19/20 13 8:58AM BY BERE GREEN MD, OFFICE VISIT MIMI Gregory, [facility] 6 10:25:59 Insect bite to leg - nonvenom ous 388944091 Completed 201203/27/2014 RECORDED 12/08/19 13 8:30AM BY HERMINIA BLANCO MA, ANNOTATI ON/ADDEN DUM MIMI Gregory, [facility] 6 10:25:59 Administ ration of diphther ia, pertussi s, and tetanus vaccine Completed 201203/27/2014 RECORDED 04/08/20 13 2:22PM BY HERMINIA BLANCO MA, ANNOTATI ON/ADDEN DUM MIMI Gregory, [facility] 6 10:25:59 Exposure to organism Completed 201203/27/2014 IMPRESSI ON: DUE FOR REPEAT TEST. FIRST TESTED 12/09/12; RECORDED 05/19/20 13 8:32AM BY BURTON PALMA MA, ANNOTATI ON/ADDEN DUM MIMI Gregory, [facility] 6 10:25:59 Candidal vulvovag initis 92750851 Completed 201203/27/2014 RECORDED 12/08/19 13 8:30AM BY HERMINIA BLANCO MA, MARCELLE ON/ADDEN DUM MIMI Gregory, [facility] 6 10:25:59 Verruca plantari s 65977136 Active Resolved ; seen by podiatry Not Available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 A script was sent for po meds which she hasn't yet started. [id number] Bere Hudson MD Main Office [address] [address] [place] [address] 01/04/2019 10:06:30 01/04/2019 11:15:15 Essential hypertension 39074961 I10 Well-contr olled with current mgmt. No changes. Liver func tion tests outside reference range 487019572 R94.5 Possibly secondary to alcohol intake since AST is elevated over AST. We spoke about cutting back on alcohol. Abnormal l iver function 94654610 K76.89 [id number] Bere Hudson MD Main Office [address] [address] [place] [address] 05/04/2019 15:28:20 05/04/2019 16:30:01 Dizziness 768647412 R42 Type 2 pankaj betes mellitus without complication 015568574 E11.9 [id number] Nahun Ibanez MD Main Office [address] [address] [place] [address] 06/01/2019 10:20:10 06/01/2019 11:49:06 Needs influenza immunization 625799665 Z23 Abscess of vulva 8380850 1 N76.4 warm soaks, if not improving would add keflex to doxycyclin e (pt allergic to sulfa).. Will cover for MRSA as she recently had abcess in left axilla. If not improving would refer to digital print operator. Pt may have some hydradenit is supprativa although no sx in right axilla or buttock. Will follow and pt to call if recurrent. [id number] Agustín Post MD Main Office [address] [address] [place] [address] 06/03/2019 13:06:32 06/03/2019 14:17:19 Uncontrolled type 2 diabetes mellitus 042816126 E11.65 Total time spent teaching and coordinati [...] 180. Pt. was instructed on 1 00 roseann ADA diet and given 7 day sample [...] September. Body mass index 30+ - obesity 101664741 Z68.33 Obesity 299974478 E66.9 [id number] Bere Hudson MD Main Office [address] [facility] [place] [address] 07/07/2019 12:57:29 07/07/2019 13:45:41 Adult health examination 276318859 Z00.00 Next colonoscop y due in 2023. 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 We will update her immuizatio ns today. Uncontroll ed type 2 diabetes mellitus 254346346 E11.65 [place] [facility] [place] Administra tion of pneumococcal vaccine 68373208 Z23 [id number] Nahun Ibanez MD Main Office [address] [facility] [place] [address] 12/05/2019 10:45:29 12/05/2019 12:00:46 SARS-CoV-2 822205824 U07.1 seen by [facility] 2 [place] ago - dx'd c covid19 [...] rtwn - she works from home Cough 61617400 R05 see above Uncontroll ed type 2 diabetes mellitus 432701997 E11.65 since pt had very dark urine this am - fsbs 111 - advised her to hold off on metformin tonight and tomorrow, cont lantus as dir, push water > SF gatorade/p owerade, and resume metformin on Thursday - cont to monitor urine, call us if any changes, cont to f/u c [facility] [id number] Bere Hudson MD Main Office [address] [address] [place] [address] 07/10/2020 14:08:29 07/10/2020 15:25:09 Adult health examination 018836247 Z00.00 Next colonoscop y due in 2023. 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 Essential hypertension 16957469 I10 Well-contr olled with current mgmt. No changes. Uncontroll ed type 2 diabetes mellitus 172539372 E11.65 Followed at [facility] endo Varicella vaccination 68 209488 Z23 Liver enzy mes level above reference range 635508411 R74.01 We discussed that this is most likely due to alcohol and she will try cutting back. [id number] Bere Hudson MD Main Office [address] [address] [place] [address] 01/01/2021 12:36:09 01/01/2021 13:21:41 Essential hypertension 39022919 I10 Well-contr olled with current mgmt. No changes. Type 2 pankaj betes mellitus without complication 831274512 E11.9 Her A1C is very good at 6.2. She will start the trulicity which was prescribed at [facility]. She may be transferri ng her diabetes care here because of insurance. Hearing loss 26321686 H9 1.93 Wears hearing aids. Allergic rhinitis 805325 04 J30.9 She has been doing well on meds. [id number] Clyde Nava [facility] [address] [address] [place] [address] 03/20/2021 13:03:12 03/20/2021 15:31:15 Essential hypertension 83675836 I10 Type 2 pankaj betes mellitus without complication 116310935 E11.9 Cough 15453144 R05 sx for 2 weeks with thick chunks of clear phlegm at night. will tx for possible bacterial secondary infection due to DM and smoking. Wheezing 91283635 R06.2 remote hx of asthma many years ago, will rx inhaler to use as needed. [id number] Bere Hudson MD Main Office [address] [address] [place] [address] 07/15/2021 09:20:46 07/15/2021 10:25:51 Type 2 diabetes mellitus without complication 685458070 E11.9 Her A1C is very good at 6.7. She started the trulicity which was prescribed at [facility] Endo Needs infl uenza immunization 073151676 Z23 Chronic cough 93693797 R 05.3 Possibly COPD although her peak flow above 600 makes this less likely. Will treat with an inhaler and see her back in a month for a PE and to f/u on her cough. Essential hypertension 01068730 I10 Running high today but usually under control. No changes. [id number] Bere Hudson MD Main Office [address] [facility] [address] [place] [address] 01/23/2022 09:46:19 01/23/2022 11:16:56 Adult health examination 641017836 Z00.00 Next colonoscop y due in 2023. 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 UTD with vaccines including COVID and shingles. Gastroesop hageal reflux disease 832755015 K21.9 Uses prn PPI. Essential hypertension 84362879 I10 Good control on current meds. No changes. Type 2 pankaj betes mellitus without complication 442521801 E11.9 Her last A1C was very good at 6.3. She is taking trulicity and is being followed at [facility] Pain of right wrist 3169 996891 56310 M25.531 Possible gout since started suddenly during the night. May also be tendinitis . Doubt CTS since no symptoms in hands/fing ers. [id number] Bere Hudson MD Main Office [address] [facility] [address] [place] [address] 02/05/2023 08:16:26 02/05/2023 09:04:01 Type 2 diabetes mellitus without complication 979983940 E11.9 A1C 6.4, good control, continue current medication s and lifestyle modificati ons. labs today Requires a tetanus booster 726804314 Z28.39 Fatigue 70525031 R53.83 Essential hypertension 60112287 I10 BP well controlled , continue current meds Gastroesop hageal reflux disease 026429422 K21.9 Blepharitis 21612611 H01 .002 H01.005 erythema , flaking under eyes, NPD ointment TID x 7 days, keep clean and dry, avoid applying makeup to area. [id number] Bere Hudson MD Telehealt [address] [facility] [address] [place] [address] 03/18/2023 12:55:53 03/18/2023 14:08:57 Lipoma of skin 576932562 D17.30 will order US and refer to gen surg for further eval. keep clean and dry, do not squeeze, tylenol or motrin as needed. [id number] Bere Hudson MD Main Office [address] [facility] [address] [place] [address] 06/23/2023 15:07:01 06/23/2023 16:10:55 Adult health examination 931326858 Z00.00 She is due for a colonoscop y which we will book since her last one was done at [facility]. 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 UTD with vaccines including COVID and shingles. History of SARS-CoV-2 29 21681522 23979794 Z86.16 Screening for malignant neoplasm of colon 945945067 Z12.11 Type 2 pankaj betes mellitus without complication 014108904 E11.9 She has been followed by [facility] but will be switching her care here. Her A1C today is 6.0 so we will continue current mgmt and follow her every 6 months. [id number] Nahun Ibanez MD Main Office [address] [facility] [address] [place] [address] 11/09/2023 15:22:10 11/09/2023 16:44:16 Allergic rhinitis 92811147 J30.9 cont angela, flonase, ns spray oftenalso consider wide/shall ow bowl of water at bedside to increase humidity (nasal congestion )since has been on angela x few years- likely needs drug holiday - consider change to claritin or zyrtec or xyzal Allergic conjunctivitis 632753480 H10.10 rec cool compress, art tears then apply patanolcon manufacturing specialist vas pj upper eyelids bedtime Otomycosis 53667661 B36. 9 very itchy L ear - most likely d/t otomycosis - rx c cortisedmundi n [id number] Bere Hudson MD Main Office [address] [facility] [address] [place] [address] 07/13/2024 10:26:07 07/13/2024 11:32:37 Adult health examination 010849208 Z00.00 She had a colonoscop y done February [address] Ruvalcaba and is due again in 2030.UTD w/mammogra m done earlier this year.UTD with PAP also done earlier this year.Gets regular eye exams and had one done this year.UTD with shingles, tetanus, flu and COVID vaccines. Needs infl uenza immunization 400099342 Z23 19 YEARS AND OLDER ONLY Type 2 pankaj betes mellitus without complication 062525452 E11.9 She has been followed by [facility]. Under good control; last A1C was less than 7. Essential hypertension 77293302 I10 Good control on current meds. No changes. Gastroesop hageal reflux disease 825743713 K21.9 Uses prn PPI. Hearing loss 42655849 H9 1.93 Wears hearing aids. [id number] Nahun Ibanez MD Main Office [address] [facility] [address] [place] [address] 11/14/2024 08:50:31 11/14/2024 09:57:27 Lateral epicondylitis of left humerus 0965144789 18649 M77.12 cont nsaids / elbow sleeve, consider ice and wrist brace o/n (otc)will get hand specialist eval Health Concerns Section Related Observation LastModified by Organization Detai ls LastModified Time None Recorded Concern Status LastModified by Organization Details LastModified Time None Recorded Advance Directives Directive N: Payers Encounter Date Sequence Insurance Name Policy Number Policy Mobley Covered Member ID Mobley Member ID Guarantor Name 03/18/2023 1 [facility] - DIRECT CONNECTORCARE TYPE I (HMO) [id number] Latesha Garrafa [id number] 01 Latesha Garrafa 06/23/2023 1 [facility] [employer] [facility] - DIRECT CONNECTORCARE TYPE I (HMO) [id number] Latesha Garrafa [id number] 01 Latesha Garrafa 11/09/2023 1 [facility] - DIRECT CONNECTORCARE TYPE I (HMO) [id number] Latesha Garrafa [id number] Latesha Garrafa 07/13/2024 1 [facility] - DIRECT CONNECTORCARE TYPE I (HMO) [id number] Latesha Garrafa [id number] Latesha Garrafa 11/14/2024 1 [facility] - DIRECT CONNECTORCARE TYPE I (HMO) [id number] Latesha Garrafa [id number] Latesha Garrafa Notes Date Note Type Note Provider Name and Address Organization Details Recorded Time 03/18/2023 text/html Generic HPI TemplateReported bypatient.Notes:Video visit:- Patient notes about 2 years ago she noticed bumps on her neck and they get larger and smaller. has had pain for a couple week and now lump is getting larger and hurts.Lump is the size of a baseball or softball, it is soft. has neck pain, diff laying down. MATTY Funez [address], [address], [facility] 03/18/2023 13:45:10 06/23/2023 text/html Generic HPI TemplateReported bypatient.Notes:Her diabetes has been under very good control with current mgmt. She would like to switch her care from [facility] to here.AST>ALT. She drinks more than 2 glasses of wine a night. She will work on cutting back.UTD with immunizations. 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 Bere Hudson MD [address] [address], [place], [address], [facility] 07/13/2024 11:50:10 11/14/2024 text/html Pt complains of left wrist pain that radiates up to her left elbow,course is worsening. L hand dominantno trauma+ sleeps c hand/wrist flexedseen by Dr. Trimble in past for wrist OAwearing elbow sleeve, taking nsaids Hayden Moreno PA-C [address] [address], [place], [address], [facility] 11/14/2024 09:58:06 OBGyn Episode No OBEpisode recorded.
--- OUTSIDE RECORDS SUMMARY | 2024-12-23 13:52 | XMS_ITS | Data Portability ---
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 Will also obtain skin allergy testing. [facility] Not available 09/21/2024 09:35:00 Plan of Treatment Reminders Order Date Submit Date Provider Last Modified By Organization Details Last Modified Time Details Appointments None recorded. Lab fungus, culture, unspecified specimen 2024 025 [facility] (Centralized Electronic Ordering - All Locations), Patient Can Go To The Location Of Their Choice, [address] 5 17:42:39 culture, bacterial 2024 025 [facility] (Centralized Electronic Ordering - All Locations), Patient Can Go To The Location Of Their Choice, [address] 5 17:42:39 Referral None recorded. Procedures allergy testing, skin prick (PROC) 2024 025 [email or web address] Not available 5 09:02:18 intradermal allergy skin testing (PROC) 2024 025 [email or web address] Not available 5 09:02:25 pulmonary function test procedure (PROC) 2024 025 [email or web address] Not available 5 09:02:32 pulse oximetry (PROC) 2024 025 [email or web address] Not available 5 09:02:39 Surgeries None recorded. Imaging None recorded. Medication Orders clotrimazol e 1 % topical solution 2024 025 [facility]/Pharmacy #[id number], [address] [facility], [place], [address], 5 09:11:33 clotrimazol e 1 % topical solution [email or web address] [facility]/Pharmacy #[id number], [address] [facility], [place], [address], 09:11:31 Patient TargetsNo targets recorded. Patient Instructions Encounter Date Encounter Id Patient Instructions Last Modified By Organization Details Last Modified Time 10/20/2024 [id number] Nursing Documentation for Allergy Testing: Ordering Provider {{Dr. Liliya Oropeza* Dr. Boom Sifuentes}} Weight:lbs:? ? ?200kg: ? ? ? PFT {{Yes* no}} With Bronchodilator {{Yes no*}} Dr. briones needed to proceed with allergy testing? {{Yes No*}} {{Dr. Liliya Sifuentes}} ok'd testing {{Yes No Pulmonary Clearance PCP Clearance RAST}}Hi story of Asthma:{{Yes No*}} Asthma Meds: ? ? ?Last used:? ? ? Asthma exacerbated by: ? ? ? Chance that : {{Yes No* Not Sure N/A}} Fear of needles: {{Yes No*}} Regular medications reviewed in Computer: {{Yes* No}} Medication allergies: {{Reviewed* NKDA}} Antihistamine use: {{Yes* No}} Medications used:zyrtec ? ? ? Food Allergies:no ? ? ? Any foods make your mouth feeling itchy: {{Yes No*}} If yes: ? ? ? History of severe reaction where had to go to ER? {{Yes No*}} If yes details: ? ? ? Type of heat in home: {{Baseboard Forced Air* Radiator othe r}} Pets: {{Yes No*}} If yes: ? ? ? Smoker: {{Yes Current Never Form er*}} If former smoker-how much 4? ? ? / day for how long 3yrs ? ? ? When quit 1 year ago ? ? ? years ago Smoking now-how much ? ? ? /day for how long ? ? ? Occupation/Social History: ? ? ?[employer] Symptoms having: {{Congestion* Post Nasal Drip Headache Runn y Nose Cough Other}} If other: ? ? ? Frequency {{Seasonally Year Round*}} Spirometry Contraindications: Heart attack in the last 3 months: {{Yes No*}} Major surgery in last 3 months: {{Yes No*}} Detached retina(serious eye issues) in last 2 months: {{Yes No*}} Hospitilization in last month: {{Yes No*}} Proceed with PFT {{Yes* No}} approval needed: {{Yes No*}} Nursing Notes: Pt tolerated test well {{Yes No n/a#}} Benadryl cream to test sites {{Yes No n/a#}} Patient became syncopal-placed in supine position {{Yes No n/a#}} Large reactions to MQT, reschedule IDT for a different date {{Yes No n/a#}} Other:Pt took zyrtec will r/s for another day ? ? ? Written by: {{SHEILA Kaur, SERGO Lambert}} [email or web address] Not available 10/20/2024 10:12:57 11/15/2024 [id number] Nursing Documentation for Allergy Testing (Split Test): Vital Signs: Blood Pressure: ? ? ? Pulse: 97 ? ? ? Oxygen Saturation: 98? ? ?> % Weight: lbs:? ? ? kg: ? ? ? History of asthma: {{Yes No*}} Asthma Meds: ? ? ?. last used: ? ? ? Chance that : {{Yes No* N/A}} Antihistamine use: {{Yes No*}} Med used: ? ? ? Nursing notes: Patient tolerated procedure well {{Yes* No}} Benadryl cream to test sites {{Yes* No}} Patient became syncopal-placed in supine position {{Yes No*}} Testing Performed by: {{SHEILA Kaur, KAYODE Lambert*}} Requesting Provider {{Dr. Liliya Sifuentes}} Not available 11/15/2024 11:12:09 Reason for Referral None Reported. Results Created Date Observation Date Name Description Value Unit Range Abnormal Flag Note LastModifiedBy Organization Detail LastModifiedTime 09/01/1909/04/2024 AEROB IC BACTE RIAL CULTU RE aerobic bacterial culture Final report Not Available [facility] ([facility]) [address] [facility], [place], [address], 09/30/2024 09:19:22 09/01/19 25 09/04/2024 AEROB IC BACTE RIAL CULTU RE result 1 Skin arpan isolat ed Heavy growt h Not Available [facility] ([facility]) [address] [facility], [place], [address], 09/30/2024 09:19:22 04/06/20 24 06/29/2020 imagi ng/di agnos tic resul t No observ ation record ed. [email or web address] Not Available 04:54:27 04/06/20 24 06/29/2020 imagi ng/di agnos tic resul t No observ ation record ed. [email or web address] Not Available 04:54:31 10/21/19 25 eber metry testi ng* No observ ation record ed. [email or web address] Not Available 2024 09:10:16 10/21/19 25 eber metry testi ng* No observ ation record ed. [email or web address] Not Available 2024 09:10:11 Result Notes None recorded. Problems Name Problem SNOMED Code Status Onset Date Resolution Date Notes Provider Name and Address Organization Details Recorded Time Acute maxillary sinusitis 72285222 Active 2018 Acute maxillary sinusitis , unspecifi ed; Note: Date Diagnosed : 01/28/2019 9:02 AM (J01.00) Not Available [facility] 02:43:23 Otorrhea of left ear 69452770877 76322 Active 2016 Otorrhea, left ear; Note: Date Diagnosed : 04/06/2017 1:17 PM (H92.12) Otorrhe a, left ear; Note: Date Diagnosed : 10/07/2016 10:40 AM (H92.12) ; Start Date : 7 Not Available [facility] 4 02:43:28 Foreign body in left ear 65637808543 092241 Active 3 Foreign body in left ear, initial encounter ; Note: Date Diagnosed : 3 9:19 AM (T16.2XXA ) Not Available [facility] 4 02:43:25 Acute suppurati ve otitis media with spontaneo us rupture of ear drum 68651176 Active 2018 Acute suppurati ve otitis media with spontaneo us rupture of ear drum; Note: Date Diagnosed : 03/28/2019 1:00 PM (382.01) Not Available [facility] 4 02:43:33 Sensorine ural hearing loss in right ear 53711332171 100 Active 2019 Sensorine ural hearing loss, unilatera l, right ear, with restricte d hearing on the contralat eral side; Note: Date Diagnosed : 0 11:27 AM (H90.A21) Not Available [facility] 4 02:43:26 Headache 78505207 Active 2018 Facial pain NOS; Note: Date Diagnosed : 01/28/2019 9:02 AM (R51) Not Available [facility] 4 02:43:32 Marginal perforati on of tympanic membrane 12471563 Active 2019 Other marginal perforati ons of tympanic membrane, left ear; Note: Date Diagnosed : 10/21/2019 10:35 AM (H72.2X2) Not Available [facility] 4 02:43:30 Spontaneo us rupture of left tympanic membrane co-occurr ent and due to acute suppurati ve otitis media 00729901786 31246 Active 2018 Acute suppurati ve otitis media with spontaneo us rupture of ear drum, left ear; Note: Date Diagnosed : 03/28/2019 1:00 PM (H66.012) Not Available [facility] 4 02:43:29 Mixed conductiv e and sensorine ural hearing loss of left ear 93573097694 107 Active 2019 Mixed conductiv e and sensorine ural hearing loss, unilatera l, left ear with restricte d hearing on the contralat eral side; Note: Date Diagnosed : 0 11:27 AM (H90.A32) Not Available [facility] 4 02:43:24 Acute sinusitis 72024985 Active 2019 Other acute sinusitis ; Note: Date Diagnosed : 10/21/2019 10:34 AM (J01.80) Other acute sinusitis ; Note: Date Diagnosed : 10/07/2016 10:40 AM (J01.80) ; Start Date : 7 Not Available [facility] 4 02:43:34 Acute myringiti s of left ear 09389585640 87437 Active 2019 Acute myringiti s, left ear; Note: Date Diagnosed : 0 11:43 AM (H73.002) Not Available [facility] 4 02:43:21 Mixed conductiv e and sensorine ural hearing loss, bilateral 356592544 Active 2016 Mixed conductiv e and sensorine ural hearing loss, bilateral ; Note: Date Diagnosed : 10/07/2016 10:40 AM (H90.6) Not Available [facility] 4 02:43:30 Otalgia of left ear 1727839404 Active 2019 Otalgia, left ear; Note: Date Diagnosed : 10/21/2019 10:35 AM (H92.02) Not Available [facility] 4 02:43:22 Candidal otitis externa 59254992 Active 2023 DANIEL KENNEDY PA-C [address] [place] [address],[place] [address], [place], [address] , [facility] - [facility] 4 10:56:28 Dermal mycosis 95919791 Active 2023 DANIEL KENNEDY PA-C [address] [place] [address],[facility] [address], [place], [address] , [place] - [facility] 4 10:56:28 Chronic mycotic otitis externa 650286543 Active 2023 DANIEL KENNEDY PA-C [address], [place], [place], [address] , [place] - [facility] 4 10:56:28 Acute serous otitis media of left ear 52230149356 70295 Active 2023 Acute serous otitis media, left ear; Note: Date Diagnosed : 11/10/2023 10:58 AM (H65.02) Not Available [facility] 4 02:43:26 Otorrhea 64331331 Active 2024 TRACI LOYA PA-C [address], [place], [address] , [place] - [facility] 5 12:05:52 Nasal congestio n 12584968 Active 2024 TRACI LOYA PA-C [address], [place], [address] , [place] - [facility] 5 09:27:47 Pain in face 70508834 Active 2024 TRACI LOYA PA-C [address], [place], [place], [address] , [place] - [facility] 5 09:27:59 Non-aller gic rhinitis 57060348839 1 Active 2024 TRACI LOYA PA-C [address], [place], [address] , [place] [facility] 5 09:29:29 Seasonal allergic rhinitis 882646529 Active 2024 TRACI LOYA PA-C [address], [place], [address] , [place] [facility] 5 09:29:29 Allergic rhinitis 86661106 Active 2024 TRACI LOYA PA-C [address], [place], [address] , [place] - [facility] 5 09:29:29 Problem Notes None recorded. Procedures Surgical History Date Name Laterality Status Provider Name and Address Organization Details Recorded Time 5 Allergy Testing-Full completed MIKAELA LAMBERT, [facility] [address] [facility] [address], [place], [address], [facility] - [facility] 11/15/2024 11:11:49 Imaging Results Imaging Date Name Status [facility]Modified by [facility] Details LastModified Time 06/29/2020 imaging/diagnos tic result completed Information not available 04/06/2024 04:54:27 06/29/2020 imaging/diagnos tic result completed Information not available 04/06/2024 04:54:31 10/20/2024 spirometry testing* completed Information not available 10/24/2024 09:10:16 10/20/2024 spirometry testing* completed Information not available 10/24/2024 09:10:11 Procedure Notes None recorded. Medical Equipment None Reported. Allergies Allergen ID Allergen Name Allergen Category Reaction Reaction Severity Criticality Documentation Date Start Date Code Code System Note Provider Name and Address Organization Details Recorded Time 704619 Bactrim medicatio n other Not available Not available 12/29/2023 56394 9 RxNorm React ion: unkno wn, unspe cifie d;; Not Available [facility] 4 01:12:39 616322 Substance with sulfonami de structure and antibacte rial mechanism of action (substanc e) medicatio n other Not available Not available 12/29/2023 12523 8003 SNOMED React ion: unkno wn, unspe cifie d;; Not Available [facility] 4 01:12:42 Medications Name Sig Start Date Stop Date Status Note LastModified by Organization Details LastModified Time ciproflox acin 750 mg tablet TAKE 1 TABLET BY MOUTH TWICE A DAY 09/21 completed Not Available Not Available Not Available azithromy priscila 250 mg tablet 09/21 completed Medicati on ID: [id number] D uration Value: 5 Prescri bed By Name: Jose Maldonado PA-C Bra robert Name: idalmis ness Method: E-Prescr ibed Sub s Allowed: subs [...] n cartridge 09/21 completed Medicati on ID: [id number] B rand Name: Nicotrol Send Method: E-Prescr ibed Sub s Allowed: subs OK Medic ationGen ericName : Nicotrol Not Available Not Available Not Available losartan 100 mg-hydroc hlorothia zide 25 mg tablet 05/29 completed Medicati on ID: [id number] D uration Value: 90 Brand Name: losartan [...] FOR COUGH FOR UP TO 7 DAYS 10/20 completed Not Available Not Available Not Available econazole nitrate 1 % topical cream active Not Available Not Available Not Available metformin 1,000 mg tablet TAKE 1 TABLET BY MOUTH 2 TIMES A DAY BEFORE BREAKFAS T AND DINNE,IN STR:TAKE WITH FOOD active Not Available Not Available No t Available irbesarta n 300 mg-hydroc hlorothia zide 12.5 mg tablet 05/29 completed Medicati on ID: [id number] D uration Value: 90 Brand Name: holden johnson chlorotisha slater S end Method: E-Prescr ibed Sub s Allowed: subs OK Speci al Instruct ion: TAKE 1 TABLET BY MOUTH EVERY DAY Medi cationGe nericNam e: holden goldstein-hydro chloroth iazide Not Available Not Available Not [...] hasone 0.1 % eye drops,devora pension 4 drop 10/20 completed Not Available Not Available Not Available [...] ous pen 09/21 completed Medicati on ID: [id number] D uration Value: 30 Brand Name: Lantus Solostar U-100 Insulin Send Method: E-Prescr ibed Sub s Allowed: subs OK Speci al Instruct ion: PLEASE SEE ATTACHED FOR DETAILED DIRECTIO NS Medic ationGen ericName : Emily Galaviz U-100 Insulin Not Available Not Available Not [...] spray,devora pension 2016 active Medicati on ID: [id number] D uration Value: 30 Brand Name: Flonase [...] saturation in Arterial blood by Pulse oximetry Systolic blood pressure Diastolic blood pressure Provider Name and Address Organization Details Last Updated DateTime 5 160.02 cm 35.4 kg/m2 99875.4 7 g 90 /min 98 % 98 % 133 mm[Hg] 85 mm[Hg] [facility], [facility] [address], [address] [place], [place] - [facility] 5 09:06:56 Date Recorded Body height Heart rate Oxygen saturation Oxygen saturation in Arterial blood by Pulse oximetry Systolic blood pressure Diastolic blood pressure Provider Name and Address Organization Details Last Updated DateTime 5 160.02 cm 103 /min 96 % 96 % 131 mm[Hg] 84 mm[Hg] MIKAELA LAMBERT, [facility] [address] [facility] [address], [address], [place] - [facility] 09:03:22 Date Recorded Body height Body mass index (BMI) Body weight Provider Name and Address Organization Details Last Updated DateTime 01/25/2024 160.02 cm 35.1 kg/m2 99724.29 g Janeen Haynes [place] - [facility] 01/25/2024 10:30:30 Date Recorded Body height Body mass index (BMI) Body weight Provider Name and Address Organization Details Last Updated DateTime 09/01/2024 160.02 cm 35.1 kg/m2 14737.29 g Carolyn Aggarwal [facility] 09/01/2024 11:05:07 Date Recorded Body height Body mass index (BMI) Body weight Provider Name and Address Organization Details Last Updated DateTime 09/21/2024 160.02 cm 35.1 kg/m2 08153.29 g Cori Brantley [facility] 09/21/2024 09:10:59 Social History Question Answer Notes LastModified by Organizat ion Details LastModified Time Tobacco Smoking Status Former Smoker SLICK PEDROZA, [facility] [address], [address], [facility] 10/20/2024 09:08:22 When Did You Quit Smoking? 1-5yearssinc elastcigaret te Information not available 10/20/2024 How Much Tobacco Do You Smoke? 1 PPW Information not available 10/20/2024 How Many Years Have You Smoked Tobacco? 3 Information not available 10/20/2024 Sex: Unknown Functional Status None recorded. Mental Status None recorded. Family History Nothing Reported. Medical History No medical history recorded. Gynecological HistoryNo gynecological history recorded. Obstetrics History GPAL:G 0 P 0 0 0 0 Past Encounters Encounter ID Performer Location Encounter Start Date Encounter Closed Date Diagnosis/Indication Diagnosis SNOMED-CT Code Diagnosis ICD10 Code Diagnosis Note [id number] DANIEL KENNEDY PA-C [facility] [address] [place] [address] 01/25/2024 10:12:44 01/25/2024 10:39:23 Candidal otitis externa 70352561 B37.84 [id number] TRACI LOYA PA-C [facility] [address] [address] 09/01/2024 11:00:07 09/01/2024 11:43:44 Otorrhea of left ear 6465829812 550902 H92.12 Otorrhea 52684524 H92.12 Chronic my cotic otitis externa 662721017 H60.399 Dermal mycosis 74317820 B36.9 Candidal o titis externa 07769516 B37.84 [id number] TRACI LOYA PA-C [facility] [address] [address] 09/21/2024 08:54:08 09/21/2024 09:25:26 Otorrhea of left ear 2654716149 600591 H92.12 Nasal congestion 3769982 0 R09.81 Pain in face 26911074 R5 1.9 [id number] SLICK KASIA, [facility] Allergy [address] [place] [address] 10/20/2024 08:43:20 10/20/2024 10:14:15 Allergic rhinitis 81280483 J30.9 [id number] MIKAELA LAMBERT, [facility] Allergy [address] [place] [address] 11/15/2024 08:42:47 11/15/2024 11:12:51 Allergic rhinitis 53774810 J30.9 Health Concerns Section Related Observation LastModified by Organization Detai ls LastModified Time None Recorded Concern Status LastModified by Organization Details LastModified Time None Recorded Advance Directives Directive None Recorded Payers Insurance Date Sequence Insurance Name Policy Number Policy Mobley Covered Member ID Mobley Member ID Guarantor Name 12/04/2024 1 [facility] - DIRECT CONNECTORCARE TYPE I (HMO) [id number] Latesha Garrafa [id number] Latesha Garrafa 09/21/2024 1 [facility] - DIRECT - [place] (HMO) [id number] Latesha Garrafa [id number] Latesha Albertoralatia 09/21/2024 1 [facility] PL[facility] - PREFERRED (MEDICARE SUPPLEMENT) [id number] Latesha Albertorafa [id number] Latesha Douglas Notes Date Note Type Note Provider Name and Address Organization Details Recorded Time 01/25/2024 text/html 58-year-old manuela roblero presents for evaluation of left ear fullness. This has been present for about 2 weeks. No pain but itching. FREDO CLARK MD [address], [place], [address], [place] - [facility] 01/25/2024 12:04:50 09/01/2024 text/html 59yo female with [...] middle ear infection. FREDO CLARK MD [address],[place] [address], [place], [address], [facility] - [facility] 09/02/2024 12:54:49 09/21/2024 text/html 59-year-old manuela roblero with history of recurrent sinusitis presents for [...] and valsartan. History of temporary asthma. AGUSTINA OROPEZA MD [address], [place], [address], [facility] - [facility] 09/21/2024 17:34:47 OBGyn Episode No OBEpisode recorded.
== END 2024-12-23 13:49 | disposition home or self-care (01) ==
LOC: HO.HAP 13:48
PROVIDERS: Visit Provider Internal Medicine
DX: Z46.1 Encounter for fitting and adjustment of hearing aid (principal); H90.6 Mixed conductive and sensorineural hearing loss, bilateral; H90.A32 Mixed conductive and sensorineural hearing loss, unilateral, left ear with restricted hearing on the contralateral side
CPT/HCPCS: V5267

== ENCOUNTER 2025-02-24 10:28 | Outpatient (REF) | payer SELFPAY ==
--- OUTSIDE RECORDS SUMMARY | 2025-02-24 10:59 | XMS_ITS | Clinical Summary ---
Author Organization [address] Address [address] [place] [address] Phone Care Team Providers Care Radiation Monitor Name Role Phone Bryson Hudson MD Primary Care Provider Encounters Date Type Department Care Team Description 01/14/2025 9:25 AM EDT - 01/14/2025 11:59 PM EDT Hospital Encounter Radiology Department - [address] [phone] Encounter for screening mammogram for breast cancer Discharge Disposition: Home or Self Care from Last 3 Months Surgical History Surgery Date Site/Laterality Comments OTHER SURGICAL HISTORY 12/2012 PROCEDURE: OK INSERTION INTRAUTERINE DEVICE IUD; COMMENT: Taiwo Perkins [...] = 0.6 oz pur e alcohol) Comments No Sex and Gender Information Value Date Recorded Sex Assigned at Not on file Legal Sex Female 5:45 PM EST Gender Identity Not on file Sexual Orientation Not on file Obstetrics History Para Term AB IAB SAB Ectopic Multiple Livin g Live Births 3 3 3 3 Date Outcome GA Total Labor Labor/2nd/3rd Weight Sex Type Anes PTL Chiquis A1 A5 Name Clin Term Term Term Last Filed Vital Signs Vital Sign Reading [...] 03/08/2024 9:35 AM EDT Plan of Treatment Health Maintenance Due Date Last Done Comments Diabetes: Annual GFR (Glomerular Filtration Rate) 1964 Diabetes: Annual Foot Exam 1974 Diabetes: Annual Retina Eye Exam 1974 Hepatitis B Vaccines (3 of 3 - 19+ 3-dose series) 06/07/2004 04/12/2004, 09/30/2001 Pneumococcal Vaccine: 50+ Years (2 of 2 - PCV) 07/07/2020 07/07/2019 Pneumococcal Vaccine: Pediatrics (0 to 5 Years) and At-Risk Patients (6 to 49 Years) (2 of 2 - PCV) 07/07/2020 07/07/2019 Cholesterol Screening (Lipid Panel) 07/27/2022 Colorectal Cancer Screening: Colonoscopy 07/27/2022 Depression Screening 07/27/2022 HIV Screening 07/27/2022 Hepatitis C Screening 07/27/2022 Social Influencers of Health Screening 07/27/2022 Hypertension/CHF/CAD Annual BMP Blood Test 08/02/2022 COVID-19 Vaccine ( season) 2024 05/09/2023, 05/29/2022, 01/02/2022, Additional history exists RSV Immunization Adult Patients (1 - Risk 60-74 years 1-dose series) 2024 Diabetes: Annual Urine Albumin-Creatinine Ratio (uACR) 01/14/2025 Diabetes: Blood Sugar Control Test (HGBA1C) 01/14/2025 Influenza Vaccine (#1) 2025 4, 08/12/2023, 05/09/2023, Additional history exists Breast Cancer Screening 01/14/2027 01/15/20 25, 01/02/2024, 01/02/2024, Additional history exists Cervical Cancer Screening: Pap Smear 03/08/2027 03/08/2024, 09/29/2018 DTaP,Tdap,and Td Vaccines (3 - Td or Tdap) 02/05/2033 02/05/2023, 12/28/2012 Zoster Vaccines Completed 09/22/2020, 07/22/2020 HIB Vaccines Aged Out No longer eligi [...] Procedure Name Priority Date/Time Associated Diagnosis Comments MG MAMMO DIGITAL SCREENING W LD BILAT Routine 01/14/2025 9:38 AM EDT Encounter for screening mammogram for breast cancer PAP SMEAR Routine 03/08/2024 from Last 3 Months or Most Recently Relevant to Health Maintenance Results * MG Mammo Digital Screening w Ld bilat (01/14/2025 9:38 AM EDT) Anatomical Region Laterality Modality Breast Bilateral Mammography 01/16/2025 10:4 0 AM EDT Impressions 01/16/2025 10:44 AM EDT Benign. BI-RADS CATEGORY: 1 - NEGATIVE RECOMMENDATION: Screening bilateral mammogram is recommended in 1 year. Mammo Location: [facility], [address] [place] [address], [address], . -------- FINAL REPORT -------- Dictated By: Moraima Jang Dictated Date: 01/16/2025 10:40 ET Assigned Physician: Moraima Jang Reviewed and Electronically Signed By: Moraima Jang Signed Date: 01/16/2025 10:44 ET Workstation ID: [id number] Transcribed By: Self Edit Transcribed Date: 01/16/2025 10:40 ET Narrative 01/16/2025 10:44 AM EDT CLINICAL: 59 years old, Female, routine annual exam. COMPARISON: Mammograms dating back to 10/27/2020 with most recent of 01/02/2024. TECHNIQUE: Bilateral MLO and CC views were obtained digitally with 3-D mammogram (digital breast tomosynthesis). Computer-aided detection was utilized in evaluation of this exam (CAD). FINDINGS: There is no evidence of suspicious mass or architectural distortion. No worrisome calcifications are evident. There has been no significant change from prior exam(s). BREAST DENSITY: B - There are scattered areas of fibroglandular density. Procedure Note Moraima Jang MD - 01/16/2025 CLINICAL: 59 years old, Female, routine annual exam. COMPARISON: Mammograms dating back to 10/27/2020 with most recent of01/02/2024. TECHNIQUE: Bilateral MLO and CC views were obtained digitally with 3-Dmammogram (digital breast tomosynthesis). Computer-aided detection wasutilized in evaluation of this exam (CAD). FINDINGS: There is no evidence of suspicious mass or architectural distortion. Noworrisome calcifications are evident. There has been no significantchange from prior exam(s). BREAST DENSITY: B - There are scattered areas of fibroglandular density. IMPRESSION: Benign. BI-RADS CATEGORY: 1 - NEGATIVE RECOMMENDATION: Screening bilateral mammogram is recommended in 1 year. Mammo Location: [facility], [address] [place] [address], [address], . -------- FINAL REPORT -------- Dictated By: Moraima Jang Dictated Date: 01/16/2025 10:40 ET Assigned Physician: Moraima Jang Reviewed and Electronically Signed By: Moraima Jang Signed Date: 01/16/2025 10:44 ET Workstation ID: [id number] Transcribed By: Self Edit Transcribed Date: 01/16/2025 10:40 ET us Bryson Hudson MD IMG BI PROCEDURES Final Res ult * Pap smear (03/08/2024) 03/08/2024 Narrative HISTORICAL TESTING LAB RESULTING AGENCY - 03/11/2024 1:36 PM EDT [id number] THINPREP PAP, IMAGED: NEGATIVE FOR SQUAMOUS INTRAEPITHELIAL LESION AND MALIGNANCY RAQUEL HAWTHORNE(ASCP) (CASE ELECTRONICALLY SIGNED 03 11 2024) RESULT OF APTIMA HIGH RISK HPV ASSAY: HIGH RISK HPV: NEGATIVE (SEROTYPES 16,18,31,33,35,39,45,51,52,56,58,59,66,68) COMPLETED ON 2024-03-10 ADEQUACY: SATISFACTORY ENDOCERVICAL/TRANSFORMATION ZONE COMPONENT PRESENT. SOURCE: THINPREP PAP HPV ANY DX: REFLEX 16 AND 18, CERVICAL, IMAGED CLINICAL INFORMATION: HPV ANY DIAGNOSIS. MENOPAUSE, PAP HX NEGATIVE, [[id number]] us Shantel ROD LAB CYTOLOGY ORDERABLES Fin al Result HISTORICAL TESTING LAB RESULTING AGENCY from Last 3 Months or Most Recently Relevant to Health Maintenance Insurance [facility] Care Teams Radiation Monitor Relationship Specialty Start Date End Date Bryson Hudson MD [address] PCP - General Internal Medicine 12/16/12
--- OUTSIDE RECORDS SUMMARY | 2025-02-24 10:59 | XMS_ITS | Patient Health Record ---
Author Organization [facility] Address [address] [place] [address] Care Team Providers Care Safety Physician Name Role Phone Bryson Hudson MD Primary Care Provider Unav nai Haroldo Burger Unavailable [phone] Allergies Allergen (clinical drug ingredient) Drug/Non Drug Allergy documented on EMR Reaction Allergy Type Onset Date Status sulfamethoxazole / trimethoprim Bactrim hives Drug Allergy Active ciprofloxacin Cipro Unknown Drug Allergy Act elda Levaquin Unknown Drug Allergy Active sulfa hives Drug Allergy Active Penicillin Unknown Drug Allergy Active Reason For Referral No Information Medications Medication SIG (Take, Route, Frequency, Duration) Notes Start Date End Date Status amLODIPine Besylate 5 MG 1 tablet Orally Once a day; Duration: 30 day(s) Active Trulicity 0.75 MG/0.5ML as directed Subcutaneous Active Irbesartan 150 MG TAKE 1 TABLET BY EVERY DAY Orally Active Azithromycin 250 MG as directed Orally Not-Taking Lantus SoloStar 100 UNIT/ML as directed Subcutaneous Active Motrin Active Chantix 1 MG 1 tablet Orally Twic a day; Duration: 30 day(s) Active metFORMIN HCl 1000 MG 1 tablet with a me al Orally Once a day; Duration: 30 day(s) Active prednisoLONE 5 MG 4 tablet in the morning with food or milk Orally Once a day Not-Takin g levoFLOXacin 500 MG 1 tablet Orally Once a day; Duration: 10 day(s) Active Aerochamber Plus use with inhalor Not-Taking Drysol 20 % USE DIRECTED PER MD TWICE A WEEK External; Duration: 30 Active Doxycycline Hyclate 100 MG 1 capsule Ora lly Once a day; Duration: 10 day(s) Not-Taking Angela-D 24 Hour Ac tive Fluconazole 150 MG 1 tablet Orally; Duration: 10 day(s) Not-Taking Cyclobenzaprine HCl 10 MG 1 tablet 1 to 2 hours before bedtime Orally Once a day; Duration: 30 day(s) Active Albuterol Active Nicotine 14 MG/24HR 1 patch to skin Transdermal Once a day; Duration: 30 day(s) Active valACYclovir HCl 500 MG 1 tablet Orally Once a day; Duration: 10 day(s) Not-Taking Naproxen 500 MG 1 tablet with food o r milk as needed Orally every 12 hrs Active Chlorthalidone 25 MG 1 tablet in the morning with food Orally Once a day; Duration: 30 day(s) Not-Taking Losartan Potassium 50 MG 1 tablet Orally Once a day; Duration: 30 day(s) Active Valsartan 160 MG 1 tablet Orally Once a day; Duration: 30 day(s) Active Social History Tobacco use other than smoking: Question Answer Notes Are you an other tobacco user? 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 Problem Plantar wart (B07.0) Active confirmed Plan Of Treatment No Information Insurance Providers Payer Name Payer Address Payer Phone Subscriber Number Group Number Insured Name Patient Relationship to Insured Coverage Start Date Coverage End Date [address] [address] [id number] Latesha Douglas Self - patient is the insured Medical (General) History Medical History History ICD Code Hypertension Chicken pox Diabetes mellitus Obesity Anxiety Hearing loss chronic sinusitis asthma hyperhidrosis Sweat gland disorder Excessive sweating Headaches/Migraines chronic cough Hearing aid worn Surgical History Surgery Date(Month/Year) [place] ear sx 1977
--- OUTSIDE RECORDS SUMMARY | 2025-02-24 10:59 | XMS_ITS | Data Portability ---
Author Organization NETTA Aguilar s, [address] Address [address] [place] [address] Care Team Providers Care Cardiac Catheterization Technician Name Role Phone [facility] Primary Care Provider Assessment No assessment recorded. Plan of Treatment Reminders Order Date Submit Date Provider Last Modified By Organization Details Last Modified Time Details Appointments None recorded. Lab None recorded. Referral None recorded. Procedures None recorded. Surgeries None recorded. Imaging None recorded. Medication Orders amoxicillin 875 mg-potassiu m clavulanate 125 mg tablet 2022 023 [facility] #[id number], [address] [place], [address], 3 10:43:59 prednisone 20 mg tablet 2022 023 [facility][id number], [address] [place], [address], 3 10:43:59 amoxicillin 875 mg-potassiu m clavulanate 125 mg tablet 2022 023 [facility][id number], [address] [place], [address], 3 10:25:04 loratadine 10 mg tablet 2022 023 [facility][id number], [address] [place], [address], 3 18:48:36 Patient TargetsNo targets recorded. Patient Instructions Encounter Date Encounter Id Patient Instructions Last Modified By Organization Details Last Modified Time 11/29/2022 [id number] cellulitis: care instructions Not available 11/29/2022 18:48:14 Acute Sinusitis: Care Instructions [email or web address] Not available 11/29/2022 18:48:14 Based on your [...] watery post nasal drip. 6. Saline Nasal [place] is recommended. Since an antibiotic was prescribed [...] that are tender Thank you for using [facility] today, please don't hesitate to call or reach out to us if you have any questions or concerns. [email or web address] Not available 11/30/2022 08:07:55 04/16/2023 [id number] Acute Sinusitis: Care Instructions Not available 04/16/2023 10:43:57 Acute Sinusitis: Care Instructions Not available 04/16/2023 10:44:19 Reason for Referral None Reported. Problems Name Problem SNOMED Code Status Onset Date Resolution Date Notes Provider Name and Address Organization Details Recorded Time Diabetes mellitus 35489604 Active 2022 NETTA Fernandez [facility] 3 18:20:24 Hypertensive disorder 10489373 Active 2022 NETTA Fernandez - [facility] 3 18:20:30 Problem Notes None recorded. Medical Equipment None Reported. Allergies Allergen ID Allergen Name Allergen Category Reaction Reaction Severity Criticality Documentation Date Start Date Code Code System Note Provider Name and Address Organization Details Recorded Time 433231 Substance with sulfonami de structure and antibacte rial mechanism of action (substanc e) medicatio n hives Not available Not available 11/29/2022 12098 8003 SNOMED NETTA Fernandez [facility] 3 18:19:43 [id number] Bactrim medicatio n hives Not available Not available 04/16/2023 27634 9 RxNorm NETTA Mirza [facility] 10:24:55 Medications Name Sig Start Date Stop [...] Linda ilable Not Available Vitals Date Recorded Systolic And Diastolic Provider Name and Address Organization Details Last Updated DateTime 11/29/2022 160/94 mm[Hg] NETTA HOPKINS [address] [place], [address], NETTA - [facility] 11/29/2022 18:46:00 Date Recorded Body height Body mass index (BMI) Body weight Oxygen saturation Oxygen saturation in Arterial blood by Pulse oximetry Heart rate Respiratory rate Body temperature Systolic And Diastolic Provider Name and Address Organization Details Last Updated DateTime 160.02 cm 35.1 kg/m2 68880.2 9 g 99 % 99 % 70 /min 20 /min 96.6 [degF] 181/110 mm[Hg] SELIN CHADWICK - [facility] 3 18:24:07 Date Recorded Body height Body mass index (BMI) Body weight Respiratory rate Body temperature Oxygen saturation Oxygen saturation in Arterial blood by Pulse oximetry Heart rate Systolic And Diastolic Provider Name and Address Organization Details Last Updated DateTime 3 160.02 cm 35.1 kg/m2 10450.2 9 g 18 /min 97.5 [degF] 97 % 97 % 103 /min 155/92 mm[Hg] ROMAIN RUTH PA - [facility] 3 10:27:22 Social History Question Answer Notes LastModified by Arigo Details LastModified Time Tobacco Smoking Status Current Every Day Smoker SELIN bernal PA - [facility] 11/29/2022 18:21:41 How Much Tobacco Do You Smoke? 0.25 PPD [email or web address] Information not available 11/29/2022 Have You Recently Traveled Abroad? No [email or web address] Information not available 11/29/2022 Sex: Unknown Functional Status Question Answer Note LastModified by Arigo Details LastModified Time Do you use any illicit or recreational drugs? No [email or web address] Information not available 11/29/2022 Do you or have you ever used any other forms of tobacco or nicotine? No [email or web address] Information not available 11/29/2022 What is your level of alcohol consumption? Moderate [email or web address] Information not available 11/29/2022 Mental Status None recorded. Family History Relationship Description Onset Age of this Age Resolved Age Notes LastModified by Organization Details LastModified Time Father No current problems or disability [email or web address] Not available 11/29 18:21:17 Mother No current problems or disability [email or web address] Not available 11/29 18:21:17 Medical History No medical history recorded. Gynecological HistoryNo gynecological history recorded. Obstetrics History GPAL:G 0 P 0 0 0 0 Past Encounters Encounter ID Performer Location Encounter Start Date Encounter Closed Date Diagnosis/Indication Diagnosis SNOMED-CT Code Diagnosis ICD10 Code Diagnosis Note [id number] [address] [place] [address] 05/21/2022 14:15:28 05/21/2022 18:46:20 [id number] [address] [place] [address] 12/03/2019 12:46:35 12/03/2019 13:31:47 [id number] [address] [place] [address] 02/27/2022 15:10:38 02/27/2022 16:01:29 [id number] NETTA HOPKINS [address] [place] [address] 11/29/2022 17:02:56 11/29/2022 18:51:39 Acute sinusitis 25018581 J01.90 Cellulitis of face 2001 L03.211 Differenti al: Early Shingles - call me tomorrow if you wake up with pimple clusters on that red area. I would stop using the eyepads incase this is an allergic reaction. Hypertensive disorder 38 429861 I10 Your blood pressure was elevated today - you need to follow up with your PCP for this. Medication may need to be adjusted. Please keep a journal of AM and PM readings from a home cuff. This will help adjust medication s. DO NOT TAKE SUDEFED! [id number] [place] [address] [place] [address] 04/16/2023 09:32:42 04/16/2023 10:45:30 Acute sinusitis 87903038 J01.90 discussed watching blood sugar closely, short [...] Mobley Member ID Guarantor Name 04/16/2023 1 [facility] [employer] - TOGETHER (MEDICAID HMO) [id number] Latesha Douglas [id number] 1 Latesha Remylatia Notes Date Note Type Note Provider Name [...] surgery. NETTA HOPKINS [address] [place], [address], [place] - [facility] 11/30/2022 08:08:44 3 text/html Sinus Complaints UCReported bypatient.Location:pain behind the eyes;sinus pain;facial pain;pain in the cheek;sinus pressure; left side Associated Symptoms:nasal discharge from both nostrils;Post nasal drip;nasal passage blockage left Onset/Timing:progressiv shelby worse over last 2weeks Duration:long standing Severity:moderate Prior Treatmentnasal saline rinse; oral decongestant; nasal steroids: Acosta Jacobo MD [address] [place], [address], [place] - [facility] 04/16/2023 10:46:05 OBGyn Episode No OBEpisode recorded.
== END 2025-02-24 10:29 | disposition home or self-care (01) ==
LOC: HO.SH 10:28
PROVIDERS: Visit Provider Internal Medicine
DX: Z13.89 Encounter for screening for other disorder (principal)

== ENCOUNTER 2025-03-08 09:56 | Outpatient (REF) | payer SELFPAY ==
--- OUTSIDE RECORDS SUMMARY | 2025-03-08 10:42 | XMS_ITS | Patient Health Record ---
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 Problem Plantar wart (34478000) Plantar wart (B07.0) Active confirmed Plan Of Treatment No Information Insurance Providers Payer Name Payer Address Payer Phone Subscriber Number Group Number Insured Name Patient Relationship to Insured Coverage Start Date Coverage End Date [facility] [address] [place] [address] [id number] Latesha Douglas Self - patient is the insured Medical (General) History Medical History History ICD Code Hypertension Chicken pox Diabetes mellitus Obesity Anxiety Hearing loss chronic sinusitis asthma hyperhidrosis Sweat gland disorder Excessive sweating Headaches/Migraines chronic cough Hearing aid worn Surgical History Surgery Date(Month/Year) [place] ear sx 1977
--- OUTSIDE RECORDS SUMMARY | 2025-03-08 10:42 | XMS_ITS | Data Portability ---
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 Plan of Treatment Reminders Order Date Submit Date Provider Last Modified By Organization Details Last Modified Time Details Appointments None recorded. Lab None recorded. Referral None recorded. Procedures None recorded. Surgeries None recorded. Imaging None recorded. Medication Orders amoxicillin 875 mg-potassiu m clavulanate 125 mg tablet 2022 023 [facility]/Pharmacy #[id number], [address] [place], [address], 3 10:43:59 prednisone 20 mg tablet 2022 023 [facility]/Pharmacy #[id number], [address] [place], [address], 3 10:43:59 amoxicillin 875 mg-potassiu m clavulanate 125 mg tablet 2022 023 [facility]/Pharmacy #[id number], [address] [place], [address], 3 10:25:04 loratadine 10 mg tablet 2022 023 [facility]/Pharmacy #[id number], [address] [place], [address], 3 18:48:36 Patient TargetsNo targets recorded. Patient Instructions Encounter Date Encounter Id Patient Instructions Last Modified By Organization Details Last Modified Time 11/29/2022 [id number] cellulitis: care instructions [email or web address] Not available 11/29/2022 18:48:14 Acute Sinusitis: Care Instructions [email or web address] Not available 11/29/2022 18:48:14 Based on your [...] watery post nasal drip. 6. Saline Nasal Onamia is recommended. Since an antibiotic was prescribed [...] if you have any questions or concerns. Not available 11/30/2022 08:07:55 04/16/2023 [id number] Acute Sinusitis: Care Instructions Not available 04/16/2023 10:43:57 Acute Sinusitis: Care Instructions Not available 04/16/2023 10:44:19 Reason for Referral None Reported. Problems Name Problem SNOMED Code Status Onset Date Resolution Date Notes Provider Name and Address Organization Details Recorded Time Diabetes mellitus 51489147 Active 2022 NETTA Fernandez [facility] 3 18:20:24 Hypertensive disorder 05905666 Active 2022 NETTA Fernandez - [facility] 3 18:20:30 Problem Notes None recorded. Medical Equipment None Reported. Allergies Allergen ID Allergen Name Allergen Category Reaction Reaction Severity Criticality Documentation Date Start Date Code Code System Note Provider Name and Address Organization Details Recorded Time 564734 Substance with sulfonami de structure and antibacte rial mechanism of action (substanc e) medicatio n hives Not available Not available 11/29/2022 13957 8003 SNOMED NETTA Fernandez [facility] 3 18:19:43 024852 Bactrim medicatio n hives Not available Not available 04/16/2023 93426 9 RxNorm NETTA Mirza - [facility] 10:24:55 Medications Name Sig Start [...] Updated DateTime 11/29/2022 160/94 mm[Hg] NETTA HOPKINS [facility] [place], [address]NET[place] - [facility] 11/29/2022 18:46:00 Date Recorded Body height Body mass index (BMI) Body weight Pain severity - 0-10 verbal numeric rating [Score] - Reported Oxygen saturation Oxygen saturation in Arterial blood by Pulse oximetry Heart rate Respiratory rate Body temperature Systolic And Diastolic Provider Name and Address Organization Details Last Updated DateTime 3 160.02 cm 35.1 kg/m2 25710.2 9 g 9 99 % 99 % 70 /min 20 /min 96.6 [degF] 181/110 mm[Hg] SELIN ALEXANDER PA - [facility] 3 18:24:07 Date Recorded Body height Body mass index (BMI) Body weight Respiratory rate Body temperature Oxygen saturation Oxygen saturation in Arterial blood by Pulse oximetry Heart rate Systolic And Diastolic Provider Name and Address Organization Details Last Updated DateTime 3 160.02 cm 35.1 kg/m2 81254.2 9 g 18 /min 97.5 [degF] 97 % 97 % 103 /min 155/92 mm[Hg] ROMAIN MIRANDA PA - [facility] 3 10:27:22 Social History Question Answer Notes LastModified by [employer] Details LastModified Time Tobacco Smoking Status Current Every Day Smoker SELIN ALEXANDER gabe PA - [facility] 11/29/2022 18:21:41 How Much Tobacco Do You Smoke? 0.25 PPD [email or web address] Information not available 11/29/2022 Have You Recently Traveled Abroad? No [email or web address] Information not available 11/29/2022 Sex: Unknown Functional Status Question Answer Note LastModified by [employer] Details LastModified Time Do you use any illicit or recreational drugs? No [email or web address] Information not available 11/29/2022 Do you or have you ever used any other forms of tobacco or nicotine? No [email or web address] Information not available 11/29/2022 What is your level of alcohol consumption? Moderate [email or web address] Information not available 11/29/2022 Mental Status None recorded. Family History Relationship Description Onset Age of this Age Resolved Age Notes LastModified by Organization Details LastModified Time Father No current problems or disability [email or web address] Not available 11/29 18:21:17 Mother No current problems or disability [email or web address] Not available 11/29 18:21:17 Medical History No medical history recorded. Gynecological HistoryNo gynecological history recorded. Obstetrics History GPAL:G 0 P 0 0 0 0 Past Encounters Encounter ID Performer Location Encounter Start Date Encounter Closed Date Diagnosis/Indication Diagnosis SNOMED-CT Code Diagnosis ICD10 Code Diagnosis Note [id number] [address] [place] [address] 05/21/2022 14:15:28 05/21/2022 18:46:20 [id number] [address] [place] [address] 12/03/2019 12:46:35 12/03/2019 13:31:47 [id number] [address] [place] [address] 02/27/2022 15:10:38 02/27/2022 16:01:29 [id number] NETTA HOPKINS [address] [place] [address] 11/29/2022 17:02:56 11/29/2022 18:51:39 Acute sinusitis 73868656 J01.90 Cellulitis of face 2001 L03.211 Differenti al: Early Shingles - call me tomorrow if you wake up with pimple clusters on that red area. I would stop using the eyepads incase this is an allergic reaction. Hypertensive disorder 38 137622 I10 Your blood pressure was elevated today - you need to follow up with your PCP for this. Medication may need to be adjusted. Please keep a journal of AM and PM readings from a home cuff. This will help adjust medication s. DO NOT TAKE SUDEFED! [id number] [place] [address] [place] [address] 04/16/2023 09:32:42 04/16/2023 10:45:30 Acute sinusitis 98347234 J01.90 discussed watching blood sugar closely, short [...] Mobley Member ID Guarantor Name 04/16/2023 1 [facility] [employer] - TOGETHER (MEDICAID HMO) [id number] Latesha Douglas [id number] 1 Latesha Douglas Notes Date Note Type [...] surgery. NETTA HOPKINS [address] [place], [address], PA - [facility] 11/30/2022 08:08:44 3 text/html Sinus Complaints UCReported bypatient.Location:pain behind the eyes;sinus pain;facial pain;pain in the cheek;sinus pressure; left side Associated Symptoms:nasal discharge from both nostrils;Post nasal drip;nasal passage blockage left Onset/Timing:progressiv shelby worse over last 2weeks Duration:long standing Severity:moderate Prior Treatmentnasal saline rinse; oral decongestant; nasal steroids: Acosta Jacobo MD [address] [place], [address], [place] - [facility] 04/16/2023 10:46:05 OBGyn Episode No OBEpisode recorded.
--- OUTSIDE RECORDS SUMMARY | 2025-03-08 10:42 | XMS_ITS | Clinical Summary ---
Author Organization [address] Address [address] [place] [address] Phone Care Team Providers Care Materials Director Name Role Phone Bryson Hudson MD Primary Care Provider Encounters Date Type Department Care Team Description 01/14/2025 9:25 AM EDT - 01/14/2025 11:59 PM EDT Hospital Encounter Radiology Department - [address] [phone] Encounter for screening mammogram for breast cancer Discharge Disposition: Home or Self Care from Last 3 Months Surgical History Surgery Date Site/Laterality Comments OTHER SURGICAL HISTORY 12/2012 PROCEDURE: NE INSERTION INTRAUTERINE DEVICE IUD; COMMENT: Taiwo Perkins [...] Panel) 07/27/2022 Colorectal Cancer Screening: Colonoscopy 07/27/2022 HIV Screening 07/27/2022 Hepatitis C Screening 07/27/2022 Social Influencers of Health Screening 07/27/2022 Hypertension/CHF/CAD Annual BMP Blood Test 08/02/2022 COVID-19 Vaccine ( season) 2024 05/09/2023, 05/29/2022, 01/02/2022, Additional history exists RSV Immunization Adult Patients (1 - Risk 60-74 years 1-dose series) 2024 Depression Screening 08/17/2024 Diabetes: Annual Urine Albumin-Creatinine Ratio (uACR) 01/14/2025 [...] is recommended in 1 year. Mammo Location: [facility], [address] [place] [address], [id number], . -------- FINAL REPORT -------- Dictated By: Moraima Jang Dictated Date: 01/16/2025 10:40 ET Assigned Physician: Moraima Jang Reviewed and Electronically Signed By: Moraima Jang Signed Date: 01/16/2025 10:44 ET Workstation ID: [id number] Transcribed By: Self Edit Transcribed Date: 01/16/2025 [...] is recommended in 1 year. Mammo Location: [facility], [address] [place] [address], [address], . -------- FINAL REPORT -------- Dictated By: Moraima Jang Dictated Date: 01/16/2025 10:40 ET Assigned Physician: Moraima Jang Reviewed and Electronically Signed By: Moraima Jang Signed Date: 01/16/2025 10:44 ET Workstation ID: [id number] Transcribed By: Self Edit Transcribed Date: 01/16/2025 10:40 ET us Bryson Hudson MD IMG BI PROCEDURES Final Res ult * Pap smear (03/08/2024) 03/08/2024 Narrative HISTORICAL TESTING LAB RESULTING AGENCY - 03/11/2024 1:36 PM EDT [id number] THINPREP PAP, IMAGED: NEGATIVE FOR SQUAMOUS INTRAEPITHELIAL [...] MENOPAUSE, PAP HX NEGATIVE, [Z01.419] us Shantel Cruz CNM LAB CYTOLOGY ORDERABLES Armando mcclure Result HISTORICAL TESTING LAB RESULTING AGENCY from Last 3 Months or Most Recently Relevant to Health Maintenance Insurance [facility] PUBLIC [employer] Care Teams Materials Director Relationship Specialty Start Date End Date Bryson Hudson MD [address] PCP - General Internal Medicine 12/16/12
== END 2025-03-08 09:57 | disposition home or self-care (01) ==
LOC: HO.HAP 09:56
PROVIDERS: Visit Provider Internal Medicine
DX: Z46.1 Encounter for fitting and adjustment of hearing aid (principal)
CPT/HCPCS: 92593

== ENCOUNTER 2025-07-10 13:45 | Outpatient (REF) | payer SELFPAY ==
--- OUTSIDE RECORDS SUMMARY | 2025-07-10 18:35 | XMS_ITS | Data Portability ---
Author Organization [facility], Main Office Address [address] [facility] [address] [place] [id number] Care Team Providers Care Biologist Name Role Phone BERE HUDSON Primary Care Provider FALGUNI JAQUEZ Manager Package NISREEN MCGOVERN Referring Provider [phone] SHAHBAZ TRIMBLE Referring Provider [facility] Dredge Engineer [facility] SCHEDULING DEPT Endocrino logist [facility] Detasseler Unavailable Territory Supervisor Assessment No assessment recorded. Plan of Treatment Reminders Order Date Submit Date Provider Last Modified By Organization Details Last Modified Time Details Appointments PE EST 2025 10:30A M Bere hutchinson MD Not available Not available Not available Lab CBC w/ auto diff 2023 PATRICK [facility] (Centralized Electronic Ordering - All Locations), Patient Can Go To The Location Of Their Choice, [id number] 07/31/2024 08:06:55 nadja MOJICA or janet tafoya 2023 024 PATRICK [facility] (Centralized Electronic Ordering - All Locations), Patient Can Go To The Location Of Their Choice, [id number] 07/31/2024 08:06:56 nadja ramon 2023 024 PATRICK [facility] (Centralized Electronic Ordering - All Locations), Patient Can Go To The Location Of Their Choice, [id number] 07/31/2024 08:06:57 HbA1 c (hem oglo bin A1c) , bloo d 2023 024 PATRICK [facility] (Centralized Electronic Ordering - All Locations), Patient Can Go To The Location Of Their Choice, [id number] 07/31/2024 08:06:58 albu min/ crea tini ne, mass rati o, urin e 2023 024 PATRICK [facility] (Centralized Electronic Ordering - All Locations), Patient Can Go To The Location Of Their Choice, [id number] 07/31/2024 08:06:57 hemo glob in A1C, fing erst ick 2022 023 PATRICK In-Office Order, Internal Use Only DO Not Attach Compendium DO Not Attach Compendium, Do Not Delete/merge, [id number] 06/23/2023 16:09:28 Referral hand surg olena refe rral 2024 025 [email or web address] Trimble MD, [address] [place] [address] Dr, [address] [address], [place], [address], 11/17/2024 10:10:47 enrrique roen tero logi refe rral - Need s colo n canc er scre enin g 2022 023 [email or web address] [facility], [address] [facility] [address] [facility], [place], [address], 06/25/2023 09:53:26 Procedures colo nosc opy scre enin g (PRO C) 2022 023 [email or web address] In-Office Order, Internal Use Only DO Not Attach Compendium DO Not Attach Compendium, Do Not Delete/merge, [id number] 06/24/2023 11:50:23 Surgeries None mansoor rded . Imaging None mansoor rded . Medication Orders vals alphonso n 320 mg-h ydro chlo fajardo iazi de 25 mg tabl et 2024 025 acennerazzo [id number], [address] [place], [address], 01/05/2025 09:17:10 clot tiara zole 1 % topi roseann solu tion 2023 024 [email or web address] [id number], [address] [place], [address], 11/14/2024 09:02:21 Pata day Once Patty y Reli ef 0.2 % eye drop s 2023 024 PATRICK [id number], [address] [place], [address], 07/13/2024 10:43:50 Patient TargetsNo targets recorded. Patient Instructions Encounter Date Encounter Id Patient Instructions Last Modified By Organization Details Last Modified Time 06/23/2023 [id number] type 2 diabetes: care instructions acennerazzo Not available 06/23/2023 15:57:39 learning about colon cancer acennerazzo Not available 06/23/2023 15:56:40 11/09/2023 [id number] managing your allergies: care instructions pmadden Not available 11/09/2023 16:42:43 saline nasal washes: care instructions pmadden Not available 11/09/2023 16:42:43 otomycosis: care instructions pmadden Not available 11/09/2023 16:42:43 allergies: care instructions pmadden Not available 11/09/2023 16:42:43 Allergic Conjunctivitis: Care Instructions pmadden Not available 11/09/2023 16:42:43 Patient will fol low up and keep appointment as scheduled. pmadden Not available 11/09/2023 16:42:10 07/13/2024 [id number] hearing loss: ca re instructions acennerazzo Not available 07/13/2024 11:50:05 gastroesophageal reflux disease (GERD): care instructions acennerazzo Not available 07/13/2024 11:50:05 high blood pressure: care instructions acennerazzo Not available 07/13/2024 11:45:19 learning about h igh blood pressure acennerazzo Not available 07/13/2024 11:45:20 type 2 diabetes: care instructions acennerazzo Not available 07/13/2024 11:28:46 11/14/2024 [id number] tennis elbow: ca re instructions pmadden Not available 11/14/2024 09:55:54 tennis elbow: exercises pmadden Not available 11/14/2024 09:55:54 Patient will fol low up and keep appointment as scheduled. pmadden Not available 11/14/2024 09:57:46 01/05/2025 [id number] learning about t ype 2 diabetes acennerazzo Not available 01/05/2025 08:52:47 type 2 diabetes: care instructions acennerazzo Not available 01/05/2025 08:52:47 high blood pressure: care instructions acennerazzo Not available 01/05/2025 08:52:47 learning about h igh blood pressure acennerazzo Not available 01/05/2025 08:52:47 Reason for Referral Mohs Surgeon Referral for Screening for malignant neoplasm of colon Needs colon cancer screening Referring Physician: Bere Hudson, Family Medicine, Encounter Date: 06/23/2023 Hand Surgeon Referral for Le ft lateral elbow tendinopathy Referring Physician: Hayden Moreno, Internal Medicine, Encounter Date: 11/14/2024 Results Created Date Observation Date Name Description Value Unit Range Abnormal Flag Note LastModifiedBy Organization Detail LastModifiedTime 06/23/2006/23/2023 hemog lobin A1C, finge rstic k A1C 6.0 % 4-6 normal Not Available In-Office Order Internal Use Only DO Not Attach Compendium DO Not Attach Compendium, Do Not Delete/merge, [id number] 06/23/2023 15:57:06 07/29/2007/30/2024 CBC WITH DIFFE RENTI AL/PL ATELE T WBC 8.1 x10e3 /uL 3.4-10 .8 normal Not Available [facility] ([facility]) [address] [facility], [place], [address], 07/31/2024 08:06:55 07/29/2007/30/2024 CBC WITH DIFFE RENTI AL/PL ATELE T RBC 4.51 x10e6 /uL 3.77-5 .28 normal Not Available [facility] ([facility]) [address] [facility], [place], [address], 07/31/2024 08:06:55 07/29/20 24 07/30/2024 CBC WITH DIFFE RENTI AL/PL ATELE T hemoglobin 13.8 g/dL 11.1-1 5.9 normal Not Available [facility] ([facility]) [address] [place], [address], 07/31/2024 08:06:55 07/29/20 24 07/30/2024 CBC WITH DIFFE RENTI AL/PL ATELE T hematocrit 41.3 % 34.0-4 6.6 normal Not Available [facility] ([facility]) [address] [place], [address], 07/31/2024 08:06:55 07/29/20 24 07/30/2024 CBC WITH DIFFE RENTI AL/PL ATELE T MCV 92 fL 79-97 normal Not Available [facility] ([facility]) [address] [place], [address], 07/31/2024 08:06:55 07/29/20 24 07/30/2024 CBC WITH DIFFE RENTI AL/PL ATELE T MCH 30.6 pg 26.6-3 3.0 normal Not Available [facility] ([facility]) [address] [place], [address], 07/31/2024 08:06:55 07/29/20 24 07/30/2024 CBC WITH DIFFE RENTI AL/PL ATELE T MCHC 33.4 g/dL 31.5-3 5.7 normal Not Available [facility] ([facility]) [address] [place], [address], 07/31/2024 08:06:55 07/29/20 24 07/30/2024 CBC WITH DIFFE RENTI AL/PL ATELE T RDW 13.3 % 11.7-1 5.4 Not Available [facility] ([facility]) [address] [facility], [place], [address], 07/31/2024 08:06:55 07/29/20 24 07/30/2024 CBC WITH DIFFE RENTI AL/PL ATELE T platelets 204 x10e3 /uL 150-45 0 normal Not Available [facility] ([facility]) [address] [facility], [place], [address], 07/31/2024 08:06:55 07/29/20 24 07/30/2024 CBC WITH DIFFE RENTI AL/PL ATELE T neutrophils 55 % not estab. normal Not Available [facility] ([facility]) [address] [facility], [place], [address], 07/31/2024 08:06:55 07/29/20 24 07/30/2024 CBC WITH DIFFE RENTI AL/PL ATELE T lymphs 35 % not estab. normal Not Available [facility] ([facility]) [address] [facility], [place], [address], 07/31/2024 08:06:55 07/29/20 24 07/30/2024 CBC WITH DIFFE RENTI AL/PL ATELE T monocytes 7 % not estab. normal Not Available [facility] ([facility]) [address] [facility], [place], [address], 07/31/2024 08:06:55 07/29/20 24 07/30/2024 CBC WITH DIFFE RENTI AL/PL ATELE T eos 2 % not estab. normal Not Available [facility] ([facility]) [address] [facility], [place], [address], 07/31/2024 08:06:55 07/29/20 24 07/30/2024 CBC WITH DIFFE RENTI AL/PL ATELE T basos 1 % not estab. normal Not Available [facility] ([facility]) [address] [place], [address], 07/31/2024 08:06:55 07/29/20 24 07/30/2024 CBC WITH DIFFE RENTI AL/PL ATELE T immature cells [employer]ER Not Available [facility] ([facility]) [address] [facility], [place], [address], 07/31/2024 08:06:55 07/29/20 24 07/30/2024 CBC WITH DIFFE RENTI AL/PL ATELE T neutrophils (absolute) 4.5 x10e3 /uL 1.4-7. 0 normal Not Available [facility] ([facility]) [address] [facility], [place], [address], 07/31/2024 08:06:55 07/29/20 24 07/30/2024 CBC WITH DIFFE RENTI AL/PL ATELE T lymphs (absolute) 2.9 x10e3 /uL 0.7-3. 1 normal Not Available [facility] ([facility]) [address] [place], [address], 07/31/2024 08:06:55 07/29/20 24 07/30/2024 CBC WITH DIFFE RENTI AL/PL ATELE T monocytes(ab solute) 0.5 x10e3 /uL 0.1-0. 9 normal Not Available [facility] ([facility]) [address] [place], [address], 07/31/2024 08:06:55 07/29/20 24 07/30/2024 CBC WITH DIFFE RENTI AL/PL ATELE T eos (absolute) 0.1 x10e3 /uL 0.0-0. 4 normal Not Available [facility] ([facility]) [address] [place], [address], 07/31/2024 08:06:55 07/29/20 24 07/30/2024 CBC WITH DIFFE RENTI AL/PL ATELE T baso (absolute) 0.1 x10e3 /uL 0.0-0. 2 normal Not Available [facility] ([facility]) [address] [facility], [place], [address], 07/31/2024 08:06:55 07/29/20 24 07/30/2024 CBC WITH DIFFE RENTI AL/PL ATELE T immature granulocytes 0 % not estab. Not Available [facility] ([facility]) [address] [facility], [place], [address], 07/31/2024 08:06:55 07/29/20 24 07/30/2024 CBC WITH DIFFE RENTI AL/PL ATELE T immature grans (abs) 0.0 x10e3 /uL 0.0-0. 1 Not Available [facility] ([facility]) [address] [facility], [place], [address], 07/31/2024 08:06:55 07/29/20 24 07/30/2024 CBC WITH DIFFE RENTI AL/PL ATELE T NRBC [employer] Not Available [facility] ([facility]) [address] [facility], [place], [address], 07/31/2024 08:06:55 07/29/20 24 07/30/2024 CBC WITH DIFFE RENTI AL/PL ATELE T hematology comments: [employer] Not Available [facility] ([facility]) [address] [facility], [place], [address], 07/31/2024 08:06:55 07/29/20 24 07/29/2024 COMP. METAB OLIC PANEL (14) glucose 145 mg/dL 70-99 above high normal Not Available [facility] ([facility]) [address] [place], [address], 07/31/2024 08:06:56 07/29/20 24 07/29/2024 COMP. METAB OLIC PANEL (14) BUN 15 mg/dL 8-27 normal Not Available [facility] ([facility]) [address] [facility] [place], [address], 07/31/2024 08:06:56 07/29/20 24 07/29/2024 COMP. METAB OLIC PANEL (14) creatinine 0.81 mg/dL 0.57-1 .00 normal Not Available [facility] ([facility]) [address] [facility] [place], [address], 07/31/2024 08:06:56 07/29/20 24 07/29/2024 COMP. METAB OLIC PANEL (14) eGFR 83 mL/mi n/1.7 3 >59 normal Not Available [facility] ([facility]) [address] [facility] [place], [address], 07/31/2024 08:06:56 07/29/20 24 07/29/2024 COMP. METAB OLIC PANEL (14) BUN/creatini ne ratio 19 12-28 normal Not Available [facility] ([facility]) [address] [facility] [place], [address], 07/31/2024 08:06:56 07/29/20 24 07/29/2024 COMP. METAB OLIC PANEL (14) sodium 140 mmol/ L 134-14 4 normal Not Available [facility] ([facility]) [address] [place], [address], 07/31/2024 08:06:56 07/29/20 24 07/29/2024 COMP. METAB OLIC PANEL (14) potassium 4.3 mmol/ L 3.5-5. 2 normal Not Available [facility] ([facility]) [address] [place], [address], 07/31/2024 08:06:56 07/29/20 24 07/29/2024 COMP. METAB OLIC PANEL (14) chloride 100 mmol/ L 96-106 normal Not Available [facility] ([facility]) [address] [place], [address], 07/31/2024 08:06:56 07/29/20 24 07/29/2024 COMP. METAB OLIC PANEL (14) carbon dioxide, total 24 mmol/ L 20-29 normal Not Available [facility] ([facility]) [address] [place], [address], 07/31/2024 08:06:56 07/29/20 24 07/29/2024 COMP. METAB OLIC PANEL (14) calcium 10.0 mg/dL 8.7-10 .3 normal Not Available [facility] ([facility]) [address] [place], [address], 07/31/2024 08:06:56 07/29/20 24 07/29/2024 COMP. METAB OLIC PANEL (14) protein, total 7.8 g/dL 6.0-8. 5 normal Not Available [facility] ([facility]) [address] [place], [address], 07/31/2024 08:06:56 07/29/20 24 07/29/2024 COMP. METAB OLIC PANEL (14) albumin 4.5 g/dL 3.8-4. 9 normal Not Available [facility] ([facility]) [address] [place], [address], 07/31/2024 08:06:56 07/29/20 24 07/29/2024 COMP. METAB OLIC PANEL (14) globulin, total 3.3 g/dL 1.5-4. 5 Not Available [facility] ([facility]) [address] [place], [address], 07/31/2024 08:06:56 07/29/20 24 07/29/2024 COMP. METAB OLIC PANEL (14) bilirubin, total 0.4 mg/dL 0.0-1. 2 normal Not Available [facility] ([facility]) [address], [place], [address], 07/31/2024 08:06:56 07/29/20 24 07/29/2024 COMP. METAB OLIC PANEL (14) alkaline phosphatase 67 IU/L 44-121 normal Not Available [facility] ([facility]) [address] [facility], [place], [address], 07/31/2024 08:06:56 07/29/20 24 07/29/2024 COMP. METAB OLIC PANEL (14) AST (SGOT) 68 IU/L 0-40 above high normal Not Available [facility] ([facility]) [address] [facility] [place], [address], 07/31/2024 08:06:56 07/29/20 24 07/29/2024 COMP. METAB OLIC PANEL (14) ALT (SGPT) 48 IU/L 0-32 above high normal Not Available [facility] ([facility]) [address] [facility], [place], [address], 07/31/2024 08:06:56 07/29/20 24 07/29/2024 LIPID PANEL cholesterol, total 183 mg/dL 100-19 9 normal Not Available [facility] ([facility]) [address] [facility], [place], [address], 07/31/2024 08:06:56 07/29/20 24 07/29/2024 LIPID PANEL triglyceride s 200 mg/dL 0-149 above high normal Not Available [facility] ([facility]) [address] [facility], [place], [address], 07/31/2024 08:06:56 07/29/20 24 07/29/2024 LIPID PANEL HDL cholesterol 46 mg/dL >39 normal Not Available [facility] ([facility]) [address] [place], [address], 07/31/2024 08:06:56 07/29/20 24 07/29/2024 LIPID PANEL VLDL cholesterol roseann 34 mg/dL 5-40 Not Available [facility] ([facility]) [address] [place], [address], 07/31/2024 08:06:56 07/29/20 24 07/29/2024 LIPID PANEL LDL chol calc ([facility]) 103 mg/dL 0-99 above high normal Not Available [facility] ([facility]) [address] [place], [address], 07/31/2024 08:06:56 07/29/20 24 07/29/2024 LIPID PANEL LDL calc comment: [employer] Not Available [facility] ([facility]) [address] [facility], [place], [address], 07/31/2024 08:06:56 07/29/20 24 07/31/2024 ALBUM IN/CR EATIN INE RATIO ,URIN E creatinine, urine 61.1 mg/dL not estab. normal Not Available [facility] ([facility]) [address] [place], [address], 07/31/2024 08:06:57 07/29/20 24 07/31/2024 ALBUM IN/CR EATIN INE RATIO ,URIN E albumin, urine 17.2 ug/mL not estab. Not Available [facility] ([facility]) [address] [place], [address], 07/31/2024 08:06:57 07/29/20 24 07/31/2024 ALBUM IN/CR EATIN INE RATIO ,URIN E alb/creat ratio 28 mg/g_ creat 0-29 Tiarra l: 0 - 29 Moder ately incre ased: 30 - 300 Sever shelby incre ased: >300 Not Available [facility] ([facility]) [address] [facility], [place], [address], 07/31/2024 08:06:57 07/29/20 24 07/30/2024 HEMOG LOBIN A1C hemoglobin A1C 8.1 % 4.8-5. 6 above high normal Predi abete s: 5.7 - 6.4 Diabe jay jay: >6.4 Glyce cinthya contr ol for adult s with diabe jay jay: <7.0 Not Available [facility] ([facility]) [address] [facility], [place], [address], 07/31/2024 08:06:58 06/25/20 23 12/06/2022 MAMMO , scree anushka, digit al, bilat eral No observ ation record ed. [email or web address] Not Available 06/25 14:14:30 07/18/20 24 01/02/2024 MAMMO , scree anushka, digit al, bilat eral No observ ation record ed. [email or web address] [facility] [address] [address], [place], [address], 07/18/2024 11:44:19 01/17/20 25 01/14/2025 mg mammo digit al scree anushka W richard bilat See Note [facility] , a member of [facility] t Name: CRYSTAL Maravilla Date of : 1964 Reason for Exam: Breast cancer screen , avg risk, asympt omatic (Age => 39y) Exam Date: 2024 [id number] EST Report Status : Final Orderi ng Provid er: BERE DAVIS PCP: BERE DAVIS [facility]IN[facility] AL: 59 years old, Female , routin e annual exam. COMPAR DAYAN: Mammog kiesha dating back to 2020 with most recent of 2023. TECHNI QUE: Bilate ral MLO and CC views were obtain ed digita lly with 3-D mammog sydnee (digit al breast tomosy nthesi s). Comput er-aid ed detect ion was utiliz ed in evalua tion of this exam (CAD). FINDIN GS: There is no eviden ce of suspic ious mass or jeremy ectura l distor tion. No worris ome calcif icatio ns are eviden t. There has been no signif icant change from prior exam(s ). BREAST DENSIT Y: B - There are scatte red areas of fibrog landul ar densit y. IMPRES REGLA: Benign . BI-RAD S CATEGO RY: 1 - NEGATI VE RECOMM ENDATI ON: Screen ing bilate ral mammog sydnee is recomm ended in 1 year. Mammo Locati on: [facility], [address] [facility], [place], [place], [address], [phone] . ------ -- FINAL REPORT ------ -- Dictat ed By: Joslyn Jang Dictat ed Date: 2024 10:40 ET Assign ed Physic sandi: Joslyn Jang Review ed and Electr onical ly Signed By: Joslyn Jang Signed Date: 2024 10:44 ET Workst ation ID: [id number] Transc ribed By: Self Edit Transc ribed Date: 2024 10:40 ET [email or web address] [facility]/S Dept [address] [place], [address], 01/16/2025 11:55:57 Result Notes None recorded. Problems Name Problem SNOMED Code Status Onset Date Resolution Date Notes Provider Name and Address Organization Details Recorded Time Khai eppersoni s 57887457 Active Resolved ; seen by podiatry Not Available [facility] 2 13:54:49 Hyperhid rosis 518978976 Active Uses a solution which helps Not Available [facility] 2 13:54:49 Acute sinusiti s 84211565 Completed 12/01/2015 Sola arreguin [place] null, [facility] 6 10:25:59 Hearing aid worn Active left Not Available [facility] 2 13:54:50 Acute asthma 459325571 Completed 01/01/2021 Removal Reason: resolved Bere Hudson MD [address] [facility] [address], [place], [address] , [facility] 1 17:19:46 Screenin g for malignan t neoplasm of breast Completed 200803/07/2014 RECORDED 07/09/20 09 12:21PM BY BERE GREEN MD, ANNOTATI ON/ADDEN DUM Sola Lili-MIMI [place], [facility] 6 10:25:59 Screenin g for malignan t neoplasm of breast Completed 200803/27/2014 RECORDED 07/09/20 09 12:21PM BY BERE GREEN MD, ANNOTATI ON/ADDEN DUM Sola MIMI Platt, [facility] 6 10:25:59 Disorder of sweat gland 91989800 Completed 201203/07/2014 RECORDED 12/08/19 13 8:30AM BY HERMINIA BLANCO MA, MARCELLE ON/ADDEN DUM Sola MIMI Platt, [facility] 6 10:25:59 Effect of exposure to external cause 27971891 Completed 201203/07/2014 RECORDED 12/08/19 13 8:30AM BY HERMINIA BLANCO MA, MARCELLE ON/ADDEN DUM Sola MIMI Platt, [facility] 6 10:25:59 Insect bite to leg - nonvenom ous 201239782 Completed 201203/07/2014 RECORDED 12/08/19 13 8:30AM BY HERMINIA BLANCO MA, ANNOTATI ON/ADDEN DUM Sola MIMI Platt, [facility] 6 10:25:59 Adult health examinat ion Completed 201203/07/2014 RECORDED 12/08/19 13 8:30AM BY HERMINIA BLANCO MA, MARCELLE ON/ADDEN DUM Sola MIMI Platt, [facility] 6 10:25:59 Candidal vulvovag initis 05924527 Completed 201203/07/2014 RECORDED 12/08/19 13 8:30AM BY HERMINIA BLANCO MA, ANNOTATI ON/ADDEN DUM Sola Lili-MIMI [place], [facility] 6 10:25:59 Disorder of sweat gland 28466988 Completed 201203/27/2014 RECORDED 12/08/19 13 8:30AM BY HERMINIA BLANCO MA, MARCELLE ON/ADDEN DUM Sola Lili-MIMI [place], [facility] 6 10:25:59 Effect of exposure to external cause 00253335 Completed 201203/27/2014 RECORDED 12/08/19 13 8:30AM BY HERMINIA BLANCO MA, MARCELLE ON/ADDEN DUM Sola Lili-Ma MIMI arreguin, [facility] 6 10:25:59 Insect bite to leg - nonvenom ous [id number] Completed 201203/27/2014 RECORDED 12/08/19 13 8:30AM BY HERMINIA BLANCO MA, ANNOTATI ON/ADDEN DUM Sola Lili-MIMI [place], [facility] 6 10:25:59 Candidal vulvovag initis 10148794 Completed 201203/27/2014 RECORDED 12/08/19 13 8:30AM BY HERMINIA BLANCO MA, ANNOTATI ON/ADDEN DUM Sola Lili-MIMI [place], [facility] 6 10:25:59 Tobacco dependen ce syndrome 37377488 Completed 201203/07/2014 RECORDED 12/29/19 13 8:41AM BY MARCELLE CAMACHO ON/ADDEN DUM [facility] 6 10:25:59 Elevated blood-pr essure reading without diagnosi s of hyperten regla 297798961 Completed 201203/07/2014 RECORDED 12/29/19 13 8:41AM BY SATHYA STALEY I ANNOTATI ON/ADDEN DUM Sola Lili-MIMI [place], [facility] 6 10:25:59 Tobacco dependen ce syndrome 64480274 Completed 201203/27/2014 RECORDED 12/29/19 13 8:41AM BY SATHYA STALEY I, ANNOTATI ON/ADDEN DUM Sola Lili-Ma MIMI arreguin, [facility] 6 10:25:59 Elevated blood-pr essure reading without diagnosi s of hyperten regla 569848526 Completed 201203/27/2014 RECORDED 12/29/19 13 8:41AM BY SATHYA STALEY I, ANNOTATI ON/ADDEN DUM Sola Lili-Ma MIMI arreguin, [facility] 6 10:25:59 Essentia l hyperten regla 22092217 Completed 201203/07/2014 RECORDED 04/08/20 13 2:23PM BY HERMINIA BLANCO MA, ANNOTATI ON/ADDEN DUM Sola Lili-MIMI [place], [facility] 6 10:25:59 Administ ration of diphther ia, pertussi s, and tetanus vaccine Completed 201203/07/2014 RECORDED 04/08/20 13 2:22PM BY HERMINIA BLANCO MA, ANNOTATI ON/ADDEN DUM Sola Lili-MIMI [place], [facility] 6 10:25:59 Administ ration of diphther ia, pertussi s, and tetanus vaccine Completed 201203/27/2014 RECORDED 04/08/20 13 2:22PM BY HERMINIA BLANCO MA, ANNOTATI ON/ADDEN DUM Sola Lili-Ma MIMI arreguin, [facility] 6 10:25:59 Acute sinusiti s 42766466 Completed 201203/07/2014 RECORDED 04/19/20 13 9:49AM BY NETTA PARRISH, ANNOTATI ON/ADDEN DUM Sola MIMI Platt, [facility] 6 10:25:59 History of clinical finding in subject [id number] Completed 201207/25/2014 MIMI Gregory, [facility] 6 10:25:59 Tobacco user 913281660 Completed 201203/07/2014 RECORDED 04/19/20 13 9:40AM BY EDDIE EL MA, ANNOTATI ON/ADDEN DUM MIMI Gregory, [facility] 6 10:25:59 Acute sinusiti s 27360742 Completed 201203/27/2014 RECORDED 04/19/20 13 9:49AM BY NETTA PARRISH, ANNOTATI ON/ADDEN DUM Sola MIMI Platt, [facility] 6 10:25:59 Influenz a vaccine needed [id number] Completed 201203/07/2014 RECORDED 05/19/20 13 8:58AM BY BERE GREEN MD, OFFICE VISIT MIMI Gregory, [facility] 6 10:25:59 Exposure to organism Completed 201203/07/2014 IMPRESSI ON: DUE FOR REPEAT TEST. FIRST TESTED 12/09/12; RECORDED 05/19/20 13 8:32AM BY BURTON PALMA MA, ANNOTATI ON/ADDEN DUM MIMI Gregory, [facility] 6 10:25:59 Influenz a vaccine needed [id number] 06 Completed 201203/27/2014 RECORDED 05/19/20 13 8:58AM BY BERE GREEN MD, OFFICE VISIT MIMI Gregory, [facility] 6 10:25:59 Exposure to organism Completed 201203/27/2014 IMPRESSI ON: DUE FOR REPEAT TEST. FIRST TESTED 12/09/12; RECORDED 05/19/20 13 8:32AM BY BURTON PALMA MA, ANNOTATI ON/ADDEN DUM MIMI Gregory, [facility] 6 10:25:59 Adult health examinat ion Completed 201307/25/2014 MIMI rGegory, [facility] 6 10:25:59 Cough 19790556 Completed 201312/01/2015 MIMI Gregory, [facility] 6 10:25:59 Hyperhid rosis 920147826 Completed 201303/07/2014 RECORDED 10/11/19 14 8:58AM BY MARCELLE CAMACHO ON/ADDEN DUM MIMI Gregory, [facility] 6 10:25:59 Tobacco user 008044891 Active 2013 Not Available [facility] 2 13:54:49 Headache 46640323 Completed 201312/01/2015 MIMI Gregory, [facility] 6 10:25:59 Hearing loss 57648518 Active 2013 Has hearing aids and is followed by Dr Chery Not Available [facility] 2 13:54:49 Obesity 536733344 Active 2013 Not Available [facility] 2 13:54:49 Hyperhid rosis 451122827 Completed 201303/27/2014 RECORDED 10/11/19 14 8:58AM BY MARCELLE CAMACHO ON/ADDEN DUM MIMI Gregory, [facility] 6 10:25:59 Screenin g for malignan t neoplasm of colon Completed 201303/07/2014 RECORDED 10/20/19 14 2:12PM BY BURTON PALMA MA, ANNOTATI ON/ADDEN DUM MIMI Gregory, [facility] 6 10:25:59 Screenin g for malignan t neoplasm of colon Completed 201303/27/2014 RECORDED 10/20/19 14 2:12PM BY BURTON PALMA MA, ANNOTATI ON/ADDEN DUM MIMI Gregory, [facility] 6 10:25:59 [facility] hyperten regla 81760159 Active 2013 well-con trolled with meds Not Available [facility] 2 13:54:49 Anxiety 59265939 Active 2016 Not Available [facility] 2 13:54:50 Excessiv e sweating 06427229 Completed 201701/01/2021 Removal Reason: duplicat e Bere Hudson MD [address], [place], [address] , [facility] 1 17:20:03 Type 2 diabetes mellitus without complica tion 813289875 Completed 201806/03/2019 Bere Hudson MD [address], [place], [address] , [facility] 5 08:52:42 Uncontro lled type 2 diabetes mellitus 105222128 Completed 201801/01/2021 Removal Reason: controll ed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 flu today. Essential hypertension 62638891 I10 Well-contr olled with current mgmt. No changes. Needs infl uenza immunization 452239258 Z23 Asthma 548784098 J45.90 9 start the advair only after having completed the prednisone . Tobacco de pendence syndrome 52719441 F17.290 Hyperhidrosis 043803799 R61 No longer able to get drysol which was helping. A script was sent for po meds which she hasn't yet started. [id number] Bere Hudson MD Main Office [address] [facility] [address] [place] [address] 01/04/2019 10:06:30 01/04/2019 11:15:15 Essential hypertension 15225967 I10 Well-contr olled with current mgmt. No changes. Liver func tion tests outside reference range 095558918 R94.5 Possibly secondary to alcohol intake since AST is elevated over AST. We spoke about cutting back on alcohol. Abnormal l iver function 76232523 K76.89 [id number] Bere Hudson MD Main Office [address] [facility] [address] [place] [address] 05/04/2019 15:28:20 05/04/2019 16:30:01 Dizziness 712656205 R42 Type 2 pankaj betes mellitus without complication 998200895 E11.9 [id number] Nahun Ibanez MD Main Office [address] [address] 06/01/2019 10:20:10 06/01/2019 11:49:06 Needs influenza immunization 953794908 Z23 Abscess of vulva 2653427 1 N76.4 warm soaks, if not improving would add keflex to doxycyclin e (pt allergic to sulfa).. Will cover for MRSA as she recently had abcess in left axilla. If not improving would refer to card writer hand. Pt may have some hydradenit is supprativa although no sx in right axilla or buttock. Will follow and pt to call if recurrent. [id number] Agustín Post MD Main Office [address] [place] [address] 06/03/2019 13:06:32 06/03/2019 14:17:19 Uncontrolled type 2 diabetes mellitus 998714271 E11.65 Total time spent teaching and coordinati [...] September. Body mass index 30+ - obesity 112043216 Z68.33 Obesity 868417116 E66.9 [id number] Bere Hudson MD Main Office [address] [facility] [address] [place] [address] 07/07/2019 12:57:29 07/07/2019 13:45:41 Adult health examination 022508580 Z00.00 Next colonoscop y due in 2023. 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 We will update her immuizatio ns today. Uncontroll ed type 2 diabetes mellitus 079950451 E11.65 Followed at [facility] endo Administra tion of pneumococcal vaccine 68891384 Z23 [id number] Nahun Ibanez MD Main Office [address] [facility] [address] [place] [address] 12/05/2019 10:45:29 12/05/2019 12:00:46 SARS-CoV-2 996139362 U07.1 seen [place] [facility] [place] 2 days ago [...] rtwn - she works from home Cough 50113524 R05 see above Uncontroll ed type 2 diabetes mellitus 285235244 E11.65 since pt had very dark urine this am - fsbs 111 - advised her to hold off on metformin tonight and tomorrow, cont lantus as dir, push water > SF gatorade/p owerade, and resume metformin on Thursday - cont to monitor urine, call us if any changes, cont to f/u c [facility] [id number] Bere Hudson MD Main Office [address] [place] [address] 07/10/2020 14:08:29 07/10/2020 15:25:09 Adult health examination 443960673 Z00.00 Next colonoscop y due in 2023. 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 Essential hypertension 99025186 I10 Well-contr olled with current mgmt. No changes. Uncontroll ed type 2 diabetes mellitus 220907323 E11.65 Followed at [facility] Varicella vaccination 68 834269 Z23 Liver enzy mes level above reference range 479323552 R74.01 We discussed that this is most likely due to alcohol and she will try cutting back. [id number] Bere Hudson MD Main Office [address] [facility] [address] [place] [address] 01/01/2021 12:36:09 01/01/2021 13:21:41 Essential hypertension 88879670 I10 Well-contr olled with current mgmt. No changes. Type 2 pankaj betes mellitus without complication 807602972 E11.9 Her A1C is very good at 6.2. She will start the trulicity which was prescribed at [facility]. She may be transferri ng her diabetes care here because of insurance. Hearing loss 61264099 H9 1.93 Wears hearing aids. Allergic rhinitis 957088 04 J30.9 She has been doing well on meds. 234384 Clyde Nava, [facility] [address] [address] 03/20/2021 13:03:12 03/20/2021 15:31:15 Essential hypertension 55758197 I10 Type 2 pankaj betes mellitus without complication 637598812 E11.9 Cough 87981979 R05 sx for 2 weeks with thick chunks of clear phlegm at night. will tx for possible bacterial secondary infection due to DM and smoking. Wheezing 83045118 R06.2 remote hx of asthma many years ago, will rx inhaler to use as needed. [id number] Bere Hudson MD Main Office [address] [address] 07/15/2021 09:20:46 07/15/2021 10:25:51 Type 2 diabetes mellitus without complication 493866684 E11.9 Her A1C is very good at 6.7. She started the trulicity which was prescribed at [facility] Needs infl uenza immunization 532816604 Z23 Chronic cough 25305258 R 05.3 Possibly COPD although her peak flow above 600 makes this less likely. Will treat with an inhaler and see her back in a month for a PE and to f/u on her cough. Essential hypertension 10084376 I10 Running high today but usually under control. No changes. [id number] Bere Hudson MD Main Office [address] [address] [place] [address] 01/23/2022 09:46:19 01/23/2022 11:16:56 Adult health examination 344192837 Z00.00 Next colonoscop y due in 2023. 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 UTD with vaccines including COVID and shingles. Gastroesop hageal reflux disease 482888476 K21.9 Uses prn PPI. Essential hypertension 03529888 I10 Good control on current meds. No changes. Type 2 pankaj betes mellitus without complication 514686561 E11.9 Her last A1C was very good at 6.3. She is taking trulicity and is being followed at [facility] Pain of right wrist 3169 883693 56129 M25.531 Possible gout since started suddenly during the night. May also be tendinitis . Doubt CTS since no symptoms in hands/fing ers. [id number] Bere Hudson MD Main Office [address] [address] [place] [address] 02/05/2023 08:16:26 02/05/2023 09:04:01 Type 2 diabetes mellitus without complication 237809120 E11.9 A1C 6.4, good control, continue current medication s and lifestyle modificati ons. labs today Requires a tetanus booster 817261679 Z28.39 Fatigue 36404802 R53.83 Essential hypertension 46482274 I10 BP well controlled , continue current meds Gastroesop hageal reflux disease 932393119 K21.9 Blepharitis 15125131 H01 .002 H01.005 erythema , flaking under eyes, NPD ointment TID x 7 days, keep clean and dry, avoid applying makeup to area. [id number] Bere Hudson MD [facility] [address] [address] [place] [address] 03/18/2023 12:55:53 03/18/2023 14:08:57 Lipoma of skin 153370904 D17.30 will order US and refer to gen surg for further eval. keep clean and dry, do not squeeze, tylenol or motrin as needed. [id number] Bere Hudson MD Main Office [address] [facility] [address] [place] [address] 06/23/2023 15:07:01 06/23/2023 16:10:55 Adult health examination 672103801 Z00.00 She is due for a colonoscop y which we will book since her last one was done at [facility]. 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 UTD with vaccines including COVID and shingles. History of SARS-CoV-2 29 66159816 26606928 Z86.16 Screening for malignant neoplasm of colon 741396992 Z12.11 Type 2 pankaj betes mellitus without complication 710334889 E11.9 She has been followed by [facility] but will be switching her care here. Her A1C today is 6.0 so we will continue current mgmt and follow her every 6 months. [id number] Nahun Ibanez MD Main Office [address] 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 9 very itchy L ear - most likely d/t otomycosis - rx c cortispori n [id number] Bere Hudson MD Main Office [address] [facility] [address] [place] [address] 07/13/2024 10:26:07 07/13/2024 11:32:37 Adult health examination 922751258 Z00.00 She had a colonoscop y done February [address] Ruvalcaba and is due again in 2030.UTD w/mammogra m done earlier this year.UTD with PAP also done earlier this year.Gets regular eye exams and had one done this year.UTD with shingles, tetanus, flu and COVID vaccines. Needs infl uenza immunization 112230050 Z23 19 YEARS AND OLDER ONLY Type 2 pankaj betes mellitus without complication 020591836 E11.9 She has been followed by [facility]. Under good control; last A1C was less than 7. Essential hypertension 67451075 I10 Good control on current meds. No changes. Gastroesop hageal reflux disease 741663166 K21.9 Uses prn PPI. Hearing loss 55793322 H9 1.93 Wears hearing aids. [id number] Nahun Ibanez MD Main Office [address] [facility] [address] [place] [address] 11/14/2024 08:50:31 11/14/2024 09:57:27 Left lateral elbow tendinopathy 3219610264 92529 M77.12 cont nsaids / elbow sleeve, consider ice and wrist brace o/n (otc)will get hand specialist eval [id number] Bere Hudson MD Main Office [address] [facility] [address] [place] [address] 01/05/2025 08:32:50 01/05/2025 09:16:30 Essential hypertension 51692792 I10 Running high. Will increase the valsartan HCTZ from 160/25 mg to 320/25 mg Type 2 pankaj betes mellitus 23940585 E11.9 26695827 She has been followed by [facility]. Under good control; last A1C was less than 7. Health Concerns Section Related Observation LastModified by Organization Detai ls LastModified Time None Recorded Concern Status LastModified by Organization Details LastModified Time None Recorded Advance Directives Directive N: Payers Insurance Date Sequence Insurance Name Policy Number Policy Mobley Covered Member ID Mobley Member ID Guarantor Name 07/13/2024 [employer] Crystal Garrafa Crystal Garrafa 06/19/2025 1 [facility] [employer] [facility] TYPE I (HMO) [id number] Crystal Garrafa [id number] Crystal Garrafa 07/13/2024 1 [facility] (O) [id number] Crystal Garrafa [id number] Crystal Douglas 07/13/[address] [place] [address] ([facility]) [id number] Crystal Douglas [id number] Crystal Douglas Notes Date Note Type Note Provider Name and Address Organization Details Recorded Time 06/23/2023 text/html Generic HPI TemplateReported by Yasemin diabetes has been under very good control with current mgmt. She would like to switch her care from [facility] to [facility].AST>ALT. She drinks more than 2 glasses of wine a night. She will work on cutting back.UTD with immunizations. Bere Hudson MD [address] [address], [place], [address], [facility] 06/24/2023 08:44:36 11/09/2023 text/html Patient c/o runny nose, watery eyes, facial swelling, and tenderness [...] pur nasal dc Hayden Moreno PA-C [address] [address], [place], [address], [facility] 11/09/2023 17:39:51 07/13/2024 text/html Generic HPI TemplateReported by PatientHer diabetes has been under very good control with current mgmt.AST>ALT when we last checked. She has cut back on alcohol. 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 L hand dominantno trauma+ sleeps c hand/wrist flexedseen by Dr. Trimble in past for wrist OAwearing elbow sleeve, taking nsaids Hayden Moreno PA-C [address] [facility] [address], [place], [address], [facility] 11/14/2024 09:58:06 01/05/2025 text/html Hypertension F/UReported by PatientHPIFor lifestyle, patient reportsnot exercising regularlybut reportslimiting/avoidi ng salt. For associated symptoms, patient reportsno dizziness,no lightheadedness,no chest pain,no shortness of breath,no palpitations,no edema, andno calf pain with exertion. For medications, patient reportstaking medications as directedandno side effects from medication.Checks her BP sometimes at home and has been running a little high.ROS as noted in the HPI Her diabetes has been under good control and she is followed twice yearly by [facility]. Bere Hudson MD [address] [facility] [address], [place], [address], [facility] 01/05/2025 09:19:23 OBGyn Episode No OBEpisode recorded.
--- OUTSIDE RECORDS SUMMARY | 2025-07-10 18:35 | XMS_ITS | Clinical Summary ---
Author Organization [address] Address [address] [place] [phone] Phone Care Team Providers Care Investigation Division Lieutenant Name Role Phone Bryson Hudson MD Primary Care Provider [phone] Surgical History Surgery Date Site/Laterality Comments OTHER SURGICAL HISTORY 12/2012 PROCEDURE: NV INSERTION INTRAUTERINE DEVICE IUD; COMMENT: Taiwo Pekrins CNM Medical History Medical History Date Comments [...] Health Maintenance Due Date Last Done Comments Colorectal Cancer Screening: Colonoscopy 1964 Diabetes: Annual GFR (Glomerular Filtration Rate) 1964 Diabetes: Annual Foot Exam 1974 Diabetes: Annual Retina Eye Exam 1974 Hepatitis B Vaccines (3 of 3 - 19+ 3-dose series) 06/07/2004 04/12/2004, 09/30/2001 RSV Immunization Adult Patients (1 - Risk 50-74 years 1-dose series) 2014 Pneumococcal Vaccine: 50+ Years (2 of 2 - PCV) 07/07/2020 07/07/2019 Cholesterol Screening (Lipid Panel) 07/27/2022 HIV Screening 07/27/2022 Hepatitis C Screening 07/27/2022 Social Influencers of Health Screening 07/27/2022 Hypertension/CHF/CAD Annual BMP Blood Test 08/02/2022 Depression Screening 08/17/2024 Diabetes: Annual Urine Albumin-Creatinine Ratio (uACR) 01/14/2025 Diabetes: Blood Sugar Control Test (HGBA1C) 01/14/2025 COVID-19 Vaccine ( season) 2025 05/09/2023, 05/29/2022, 01/02/2022, Additional history exists Influenza Vaccine (#1) 2025 4, 08/12/2023, 05/09/2023, [...] is recommended in 1 year. Mammo Location: [facility], [address] [place] [address], [address], . -------- FINAL REPORT -------- Dictated By: Moraima Jang Dictated Date: 01/16/2025 10:40 ET Assigned Physician: Moraima Jang Reviewed and Electronically Signed By: Moraima Jang Signed Date: 01/16/2025 10:44 ET Workstation ID: [id number] Transcribed By: Self Edit Transcribed Date: 01/16/2025 [...] is recommended in 1 year. Mammo Location: [facility], [address] [place] [address], [address], . -------- FINAL REPORT -------- Dictated By: Moraima Jang Dictated Date: 01/16/2025 10:40 ET Assigned Physician: Moraima Jang Reviewed and Electronically Signed By: Moraima Jang Signed Date: 01/16/2025 10:44 ET Workstation ID: [id number] Transcribed By: Self Edit Transcribed Date: 01/16/2025 10:40 ET us Bryson Hudson MD IMG BI PROCEDURES Final Res ult * Pap smear (03/08/2024) 03/08/2024 Narrative HISTORICAL TESTING LAB RESULTING AGENCY - 03/11/2024 1:36 PM EDT [id number] THINPREP PAP, IMAGED: NEGATIVE FOR SQUAMOUS INTRAEPITHELIAL [...] PAP HX NEGATIVE, [Z01.419] us Shantel Cruz [facility] LAB CYTOLOGY ORDERABLES Fin al Result HISTORICAL TESTING LAB RESULTING AGENCY from Last 3 Months or Most Recently Relevant to Health Maintenance Insurance [facility] PUBLIC [employer] Care Teams Investigation Division Lieutenant Relationship Specialty Start Date End Date Bryson Hudson MD [address] [facility] [address] [place], [place] PCP - General Internal Medicine 12/16/12
--- OUTSIDE RECORDS SUMMARY | 2025-07-10 18:35 | XMS_ITS | Data Portability ---
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 Denies fever, chest pain, palpitations, shortness breath, cough, dizziness, postnasal drip. Using Sudafed, saline nasal spray, and Neti pot for relief with effect. Exam: Comfortable appearing female, afebrile. Heart sounds slightly tachycardic but regular, no murmurs noted, lung sounds clear. Tender to palpation of frontal and maxillary sinuses. Ear canals clear, TMs slightly bulging. No erythema or exudates noted in the posterior oropharynx. DDx considered, but not limited to: Consider viral sinusitis given time course. Consider bacterial sinusitis however given time course, this appears less likely. Consider otitis media although without erythema this appears less likely. Work up/Results: Plan/Discussion: Likely viral due to time course. Flonase as prescribed for nasal congestion. Saline nasal rinse, instructed patient to use distilled water not tap water for this. Warm salt water gargles throughout the day for symptomatic relief. Drink plenty of fluids. Patient instructed to call if symptoms worsen or do not improve; patient acknowledges understands and agrees with plan. Note created with voice recognition software and may contain grammatical errors due to this. Patients PCP contacted and updated on patient status. Patient verbalized understanding of discharge instructions and when to follow up with PCP/911/ED as needed. Patient in agreement with current plan and treatment. [email or web address] Not available 10/16/2019 09:58:25 Plan of Treatment Reminders Order Date Submit Date Provider Last Modified By Organization Details Last Modified Time Details Appointments None recorded. Lab None recorded. Referral None recorded. Procedures None recorded. Surgeries None recorded. Imaging None recorded. Medication Orders Flonase Allergy Relief 50 mcg/actua tion nasal spray,devora johnston 2019 020 INTERFACE [id number], [address] [facility], [place], [address], 0 09:48:35 Patient TargetsNo targets recorded. Patient Instructions Encounter Date Encounter Id Patient Instructions Last Modified By Organization Details Last Modified Time 10/16/2019 [id number] Sinusitis Instructions Basic Information Sinusitis is an inflammation of the lining of the sinuses. Sinuses are lined with mucous membranes and are filled with air. When sinuses become blocked, fluid can back up within sinuses and this creates a condition where the sinuses become swollen and can cause pain and other symptoms. Sometimes, this will allow germs such as viruses, bacteria and mold to grow and cause infection. Sinuses can become blocked due to the common cold, environmental allergies, deformities such as nose injuries or deviated septum, or growths such as polyps. Symptoms include facial pain and pressure, nasal discharge, ear pressure, having to clear the throat often, dental pain and diminished sense of smell and taste. At times fever and bad breath occur. Most cases of sinusitis (90-98 %) are viral. True bacterial sinusitis is actually quite rare. A popular belief is that is your nasal discharge is green, then it is bacterial and you need an antibiotic. Antibiotics are usually not indicated unless the following is present: symptoms last for 10 days of more and are not improving fever of at least 102 degrees facial pain that is constant for 3-4 days in a row a typical cold resolves after one week and then sudden return of symptoms with increased nasal discharge, headache and sinus pressure Instructions Medications: Decongestants: [id number] decongestants such as sudafed are helpful. You should not use these for prolonged periods of time and they may not be contraindicated due to drug interactions with your regular medications or if you have medical problems such as high blood pressure. Ask your NETWORK SUPPORT ADMINISTRATOR. decongestant sprays such as Afrin and Amaury-synephrine may also help your symptoms. However, if theses are used for over 3 days in a row, the congestion can actually get worse when you stop using them. So, use sparingly. If you have high blood pressure, your NETWORK SUPPORT ADMINISTRATOR may not recommend use. nasal steroid drops/spray These MAY help decrease the inflammation in the mucous membrane lining of the sinuses (there is no strong evidence to support this claim). They work best with regular use while you have your symptoms. They also work best if used a few minutes after sinus irrigation treatment (see below) Pain relief: Ibuprofen and Tylenol may be used for comfort. The maximum dose of Tylenol for adults is 4000 mg/day (or 2 extra strength tablets 4 times per day) and the recommended dose of Ibuprofen for adults 400 mg every 6 hours. Both of these medicines work best if you take them regularly for 3 days. Please follow the recommended dosage instructions on the bottle. Antibiotics: If your provider prescribed these for you, be sure that you complete the whole course. Self Care: Sinus irrigations: Obtain an ear bulb syringe from the pharmacy (a typical nose syringe, used often for infants, is too small). Cut the tip of the syringe so that it can fit snuggly in your nostril. Mix a cup of warm water with a teaspoon of non-iodized table salt and generous pinch of baking soda. Draw up some of the solution into the syringe. Plug one side of your nose while you insert the bulb syringe into the other side. Squeeze the syringe firmly but gently while you b reathe in the solution through your nose. Alternate both sides until you complete the cup of solution. Do this 2-4 times per day. After each irrigation, be sure to clean the bulb syringe in a dilute bleach solution and rinse well. Local heat: Moisten a washcloth and place this over your sinuses (cheeks and around the eyes). Over the washcloth, place a heating pad set on low. Do this for 20 minutes 4-6 times per day Hydration: drink eight, 8 oz. glasses of clear liquid per day Follow up: See your regular MD or Ear Nose and Throat doctor (if recommended by your provider) within 10 days for follow up. Seek Care Immediately if you: -develop a rash -notice significant redness or swelling around your eye -have fever that does not respond to tylenol/ibuprofen or remains >101.4 (adults) > 100.4 (children) for greater than 3 days -have a stiff neck or severe headache If you develop any new or worsening symptoms and need after hours care, please go to nearest ER and/or call 911. If you have additional concerns or develop a change in your condition between 8am-10pm, please call [facility] at [phone] to help navigate your care. [email or web address] Not available 10/16/2019 09:49:05 Reason for Referral None Reported. Medical Equipment None Reported. Allergies Allergen ID Allergen Name Allergen Category Reaction Reaction Severity Criticality Documentation Date Start Date Code Code System Note Provider Name and Address Organization Details Recorded Time 18880 Substance with sulfonami de structure and antibacte rial mechanism of action (substanc e) medicatio n Not available Not available Not available 10/16/2019 09126 8003 SNOMED NETTA ARREOLA [address] [facility] [place], [address], [place] [facility] 0 09:40:52 Medications Name Sig Start Date Stop Date Status Note LastModified by Organization Details LastModified Time freestyle mis lancets active Not Available Not Available Not Available freestyle mis lite active Not Available Not Available Not Available doxycycline hyclate 100 mg capsule 10/15 completed Not Available Not Available Not Available nicotine 14 mg/24 hr daily transdermal patch active Not Available Not Available Not Available azithromyci n 250 mg tablet 10/15 completed Not Available Not Available Not Available valacyclovi r 500 mg tablet active Not Available Not Available Not Available losartan 100 mg-hydrochl orothiazide 25 mg tablet 10/15 completed Not Available Not Available Not Available dexamethaso ne 1 mg tablet 10/15 completed Not Available Not Available Not Available amlodipine 10 mg tablet active Not Available Not Available Not Available cephalexin 500 mg capsule 10/15 completed Not Available Not Available Not Available metformin 1,000 mg tablet active Not Available Not Available Not Available valsartan 160 mg-hydrochl orothiazide 25 mg tablet active Not Available Not Available Not Available Ciprodex 0.3 %-0.1 % ear drops,suspe nsion active Not Available Not Available Not Available chlorhexidi ne gluconate 0.12 % mouthwash active Not Available Not Available No t Available Lantus Solostar U-100 Insulin 100 unit/mL (3 mL) subcutaneou s pen active Not Available Not Available Not Available Trulicity 0.75 mg/0.5 mL subcutaneou s pen injector active Not Available Not Available Not Available Flonase Allergy Relief 50 mcg/actuati on nasal spray,suspe nsion [place] 1 spray twice a day by intranasa l route for 10 days. 2019 active Not Available Not Available Not Avai lable Vitals Date Recorded Oxygen saturation Respiratory rate Body temperature Heart rate Systolic And Diastolic Provider Name and Address Organization Details Last Updated DateTime 0 100 % 18 /min 98.3 [degF] 103 /min 152/96 mm[Hg] Not Available [facility] 0 09:42:28 Social History Question Answer Notes LastModified by Organizat ion Details LastModified Time Tobacco Smoking Status Current Every Day Smoker NETTA ARREOLA [address], [place], [address], [place] [facility] 10/16/2019 09:41:33 Do You Have An Advance Directive? No Information not available 10/16/2019 What Is Your Code Status? Full Code Information not available 10/16/2019 Excessive Alcohol Or Drug Use No Information not available 10/16/2019 What Was The Date Of Your Most Recent Tobacco Screening? 10/16/2019 Information not available 10/16/2019 How Much Tobacco Do You Smoke? 0.5 PPD Information not available 10/16/2019 How Many Years Have You Smoked Tobacco? 7 Information not available 10/16/2019 Sex: Unknown Functional Status Question Answer Note LastModified by Organizat ion Details LastModified Time Do you or have you ever used smokeless tobacco? Never used smokeless tobacco Information not available 10/16/2019 Do you or have you ever used e-cigarettes or vape? Never used electronic cigarettes Information not available 10/16/2019 Mental Status None recorded. Family History Relationship Description Onset Age of this Age Resolved Age Notes LastModified by Organization Details LastModified Time Father Hypertensive disorder [email or web address] Not available 2019 09:41:13 Medical History Condition Response Diabetes Y Coronary Artery Disease N High Cholesterol N Pulmonary Embolism N Cancer N Hypertension Y Stroke N COPD N Depression N Asthma N Kidney Disease N Gynecological HistoryNo gynecological history recorded. Obstetrics History GPAL:G 0 P 0 0 0 0 Past Encounters Encounter ID Performer Location Encounter Start Date Encounter Closed Date Diagnosis/Indication Diagnosis SNOMED-CT Code Diagnosis ICD10 Code Diagnosis IMO Codes Diagnosis Note [id number] NETTA ARREOLA [facility] [address] [place] [address] 10/16/2019 09:36:35 10/18/2019 13:16:17 Acute sinusitis 87219618 J01.90 Health Concerns Section Related Observation LastModified by Organization Detai ls LastModified Time None Recorded Concern Status LastModified by Organization Details LastModified Time None Recorded Advance Directives Directive N: Payers Insurance Date Sequence Insurance Name Policy Number Policy Mobley Covered Member ID Mobley Member ID Guarantor Name 10/16/2019 1 *SELF PAY* Carmen Garrafa [id number] Latesha Garrafa 10/18/2019 1 [facility] Carmen Garrafa [id number] Latesha Garrafa 10/18/2019 1 [facility] [id number] Latesha Garrafa [id number] Latesha Garrafa Notes Date Note Type Note Provider Name and Address Organization Details Recorded Time 10/16/2019 text/html 54-year-old female presents for evaluation sinus concern. Reports 2 days of sinus congestion, ear pressure. Denies fever, chest pain, palpitations, shortness of breath, cough, dizziness, sore throat, postnasal drip. Using Neti pot, saline nasal spray and took Sudafed once yesterday and reports she does feel somewhat better today. Patient also has hypertension and reports taking her medication as prescribed, states blood pressure is always high . NETTA ARREOLA [address], [place], [address], [place] [facility] 10/16/2019 10:00:48 OBGyn Episode No OBEpisode recorded.
--- OUTSIDE RECORDS SUMMARY | 2025-07-10 18:36 | XMS_ITS | Data Portability ---
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 Plan of Treatment Reminders Order Date Submit Date Provider Last Modified By Organization Details Last Modified Time Details Appointments None recorded. Lab None recorded. Referral None recorded. Procedures None recorded. Surgeries None recorded. Imaging None recorded. Medication Orders amoxicillin 875 mg-potassiu m clavulanate 125 mg tablet 2022 023 [id number], [address] [place], [address], 3 10:43:59 prednisone 20 mg tablet 2022 023 [id number], [address] [place], [address], 3 10:43:59 amoxicillin 875 mg-potassiu m clavulanate 125 mg tablet 2022 023 [id number], [address] [place], [address], 3 10:25:04 loratadine 10 mg tablet 2022 023 [id number], [address] [place], [address], 3 18:48:36 Patient TargetsNo targets recorded. Patient Instructions Encounter Date Encounter Id Patient Instructions Last Modified By Organization Details Last Modified Time 11/29/2022 [id number] cellulitis: care instructions [email or web address] Not available 11/29/2022 18:48:14 Acute Sinusitis: Care Instructions [email or web address] Not available 11/29/2022 18:48:14 Based on your [...] watery post nasal drip. 6. Saline Nasal [place] is recommended. Since an antibiotic was prescribed [...] or concerns. Not available 11/30/2022 08:07:55 04/16/2023 [id number] Acute Sinusitis: Care Instructions Not available 04/16/2023 10:43:57 Acute Sinusitis: Care Instructions Not available 04/16/2023 10:44:19 Reason for Referral None Reported. Problems Name Problem SNOMED Code Status Onset Date Resolution Date Notes Provider Name and Address Organization Details Recorded Time Diabetes mellitus 57412451 Active 2022 NETTA Fernandez [facility] 3 18:20:24 Hypertensive disorder 25247324 Active 2022 NETTA Fernandez - [facility] 3 18:20:30 Problem Notes None recorded. Medical Equipment None Reported. Allergies Allergen ID Allergen Name Allergen Category Reaction Reaction Severity Criticality Documentation Date Start Date Code Code System Note Provider Name and Address Organization Details Recorded Time 154191 Substance with sulfonami de structure and antibacte rial mechanism of action (substanc e) medicatio n hives Not available Not available 11/29/2022 05987 8003 SNOMED NETTA Fernandez [facility] 3 18:19:43 352987 Bactrim medicatio n hives Not available Not available 04/16/2023 95367 9 RxNorm NETTA Mirza [facility] 10:24:55 [...] Updated DateTime 11/29/2022 160/94 mm[Hg] NETTA HOPKINS [facility] [place], [address], NETTA - [facility] 11/29/2022 18:46:00 Date Recorded Body height Body mass index (BMI) Body weight Pain severity - 0-10 verbal numeric rating [Score] - Reported Oxygen saturation Heart rate Respiratory rate Body temperature Systolic And Diastolic Provider Name and Address Organization Details Last Updated DateTime 3 160.02 cm 35.1 kg/m2 10966.2 9 g 9 99 % 70 /min 20 /min 96.6 [degF] 181/110 mm[Hg] SELIN CHADWICK - [facility] 3 18:24:07 Date Recorded Body height Body mass index (BMI) Body weight Respiratory rate Body temperature Oxygen saturation Heart rate Systolic And Diastolic Provider Name and Address Organization Details Last Updated DateTime 3 160.02 cm 35.1 kg/m2 45146.2 9 g 18 /min 97.5 [degF] 97 % 103 /min 155/92 mm[Hg] ROMAIN MIRANDA PA - [facility] 3 10:27:22 Social History Question Answer Notes LastModified by [email or web address] Details LastModified Time Tobacco Smoking Status Current Every Day Smoker SELINELOY BURTDEANNA bernal [place] - [facility] 11/29/2022 18:21:41 How Much Tobacco Do You Smoke? 0.25 PPD [email or web address] Information not available 11/29/2022 Have You Recently Traveled Abroad? No [email or web address] Information not available 11/29/2022 Sex: Unknown Functional Status Question Answer Note LastModified by [email or web address] Details LastModified Time Do you use any illicit or recreational drugs? No [email or web address] Information not available 11/29/2022 Do you or have you ever used any other forms of tobacco or nicotine? No [email or web address] Information not available 11/29/2022 What is your level of alcohol consumption? Moderate [email or web address] Information not available 11/29/2022 Mental Status None recorded. Family History Relationship Description Onset Age of this Age Resolved Age Notes LastModified by Organization Details LastModified Time Father No current problems or disability [email or web address] Not available 11/29 18:21:17 Mother No current problems or disability [email or web address] Not available 11/29 18:21:17 Medical History No medical history recorded. Gynecological HistoryNo gynecological history recorded. Obstetrics History GPAL:G 0 P 0 0 0 0 Past Encounters Encounter ID Performer Location Encounter Start Date Encounter Closed Date Diagnosis/Indication Diagnosis SNOMED-CT Code Diagnosis ICD10 Code Diagnosis IMO Codes Diagnosis Note [id number] [address] [place] [address] 05/21/2022 14:15:28 05/21/2022 18:46:20 [id number] [address] [place] [address] 12/03/2019 12:46:35 12/03/2019 13:31:47 [id number] [address] [place] [address] 02/27/2022 15:10:38 02/27/2022 16:01:29 [id number] NETTA HOPKINS [address] [place] [address] 11/29/2022 17:02:56 11/29/2022 18:51:39 Acute sinusitis 42779741 J01.90 Cellulitis of face 2001 L03.211 Differenti al: Early Shingles - call me tomorrow if you wake up with pimple clusters on that red area. I would stop using the eyepads incase this is an allergic reaction. Hypertensive disorder 38 911013 I10 Your blood pressure was elevated today - you need to follow up with your PCP for this. Medication may need to be adjusted. Please keep a journal of AM and PM readings from a home cuff. This will help adjust medication s. DO NOT TAKE SUDEFED! [id number] [place] [address] [place] [address] 04/16/2023 09:32:42 04/16/2023 10:45:30 Acute sinusitis 43152978 J01.90 discussed watching blood sugar closely, short [...] Mobley Member ID Guarantor Name 04/16/2023 1 [facility] [employer] - TOGETHER (MEDICAID HMO) [id number] Latesha Douglas [id number] Latesha Douglas Notes Date Note Type Note Provider Name and Address Organization Details Recorded Time 3 text/html Sinus ComplaintsReported by PatientHPIFor location, patient reportssinus pain,facial pain, andpain in the cheekbut reportsleft side. For associated symptoms, patient reportsnasal discharge from both nostrils,headache forehead, andeye itching(dry mouth. denies vision change. redness and swelling on the left cheek.). For quality, patient reportsworsening. For onset/timing, patient reportsinitially started 4days ago. For duration, patient reportsfrequent. For severity, patient reportssevere. For context, patient reportsno recent upper respiratory infection,no recent sick contacts, andnot worse with seasonal allergen exposure. For alleviating factors, patient reportsotc meds pseudofed.The patient presents insisting she has a sinus [...] surgery. NETTA HOPKINS [address] [place], [address], [place] [facility] 11/30/2022 08:08:44 3 text/html Sinus Complaints UCReported by PatientHPIFor location, patient reportspain behind the eyes __,sinus pain,facial pain,pain in the cheek, andsinus pressurebut reportsleft side. For associated symptoms, patient reportsnasal discharge from both nostrils,post nasal drip, andnasal passage blockage left. For onset/timing, patient reportsprogressively worse over last 2weeks. For duration, patient reportslong standing. For severity, patient reportsmoderate. For prior treatment, patient reportsnasal saline rinse,oral decongestant, andnasal steroids:___. Acosta Jacobo MD [address] [place], [address], [facility] 04/16/2023 10:46:05 OBGyn Episode No OBEpisode recorded.
--- OUTSIDE RECORDS SUMMARY | 2025-07-10 18:36 | XMS_ITS | Data Portability ---
Author Organization [place] - [facility], Allergy Address [address] [address] Care Team Providers Care Tube Coater Name Role Phone BERE THOMPSON Primary Care [...] days. Will also obtain skin allergy testing. [facility] Not available 09/21/2024 09:35:00 Plan of Treatment Reminders Order Date Submit Date Provider Last Modified By Organization Details Last Modified Time Details Appointments None recorded. Lab fungus, culture, unspecified specimen 2024 025 [facility] (Centralized Electronic Ordering - All Locations), Patient Can Go To The Location Of Their Choice, [id number] 5 17:42:39 culture, bacterial 2024 025 [email or web address] (Centralized Electronic Ordering - All Locations), Patient Can Go To The Location Of Their Choice, [id number] 5 17:42:39 Referral None recorded. Procedures allergy [...] e 1 % topical solution 2024 025 [facility][id number], [address] [facility], [place], [address], 5 09:11:33 clotrimazol e 1 % topical solution 2023 024 [email or web address] [id number], [address] [place], [address], 09:11:31 Patient TargetsNo targets recorded. Patient Instructions Encounter Date Encounter Id Patient Instructions Last Modified By Organization Details Last Modified Time 10/20/2024 [id number] Nursing Documentation for Allergy Testing: Ordering Provider Dr. Oropeza Weight:lbs: 200kg: PFT Yes With Bronchodilator no approval needed to proceed with allergy testing? No ok'd testing History of Asthma:No Asthma Meds: Last used: Asthma exacerbated by: Chance that : No Fear of needles: No Regular medications reviewed in Computer: Yes Medication allergies: Reviewed Antihistamine use: Yes Medications used:zyrtec Food Allergies:no Any foods make your mouth feeling itchy: No If yes: History of severe reaction where had to go to ER? 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 [employer] Symptoms having: Congestion If other: Frequency Year Round Spirometry Contraindications: Heart attack in the last 3 months: No Major surgery in last 3 months: No Detached retina(serious eye issues) in last 2 months: No Hospitilization in last month: No Proceed with PFT Yes approval needed: No Nursing Notes: Pt tolerated test well n/a Benadryl cream to test sites n/a Patient became syncopal-placed in supine position n/a Large reactions to MQT, reschedule IDT for a different date n/a Other:Pt took zyrtec will r/s for another day Written by: KAYODE Granados Not available 10/20/2024 10:12:57 11/15/2024 [id number] Nursing Documentation for Allergy Testing (Split Test): Vital Signs: Blood Pressure: Pulse: 97 Oxygen Saturation: 98 > % Weight: lbs: kg: History of asthma: No Asthma Meds: . last used: Chance that : No Antihistamine use: No Med used: Nursing notes: Patient tolerated procedure well Yes Benadryl cream to test sites Yes Patient became syncopal-placed in supine position No Testing Performed by: Anabell Lambert Requesting Provider [email or web address] Not available 11/15/2024 11:12:09 Reason for Referral None Reported. Results Created Date Observation Date Name Description Value Unit Range Abnormal Flag Note LastModifiedBy Organization Detail LastModifiedTime 09/01/1909/04/2024 AEROB IC BACTE RIAL CULTU RE aerobic bacterial culture Final report Not Available [facility] ([facility]) [address] [facility], [place], [address], 09/30/2024 09:19:22 09/01/1909/04/2024 AEROB IC BACTE RIAL CULTU RE result 1 Skin arpan isolat ed Heavy growt h Not Available [facility] ([facility]) [address] [facility], [place], [address], 09/30/2024 09:19:22 04/06/20 24 06/29/2020 imagi ng/di [...] Name and Address Organization Details Recorded Time Mixed conductiv e and sensorine ural hearing loss, bilateral 913616663 Active 2016 Mixed conductiv e and sensorine ural hearing loss, bilateral ; Note: Date Diagnosed : 10/07/2016 10:40 AM (H90.6) Not Available [facility] 4 02:43:30 Otorrhea of left ear 90121014006 23739 Active 2016 Otorrhea, left ear; Note: Date Diagnosed : 04/06/2017 1:17 PM (H92.12) Otorrhe a, left ear; Note: Date Diagnosed : 10/07/2016 10:40 AM (H92.12) ; Start Date : 7 Not Available [facility] 4 02:43:28 Acute maxillary sinusitis 40785278 Active 2018 Acute maxillary sinusitis , unspecifi ed; Note: Date Diagnosed : 01/28/2019 9:02 AM (J01.00) Not Available [facility] 4 02:43:23 Headache 67506911 Active 2018 Facial pain NOS; Note: Date Diagnosed : 01/28/2019 9:02 AM (R51) Not Available [facility] 4 02:43:32 Acute suppurati ve otitis media with spontaneo us rupture of ear drum 91551196 Active 2018 Acute suppurati ve otitis media with spontaneo us rupture of ear drum; Note: Date Diagnosed : 03/28/2019 1:00 PM (382.01) Not Available [facility] 4 02:43:33 Spontaneo us rupture of left tympanic membrane co-occurr ent and due to acute suppurati ve otitis media 92867454748 08972 Active 2018 Acute suppurati ve otitis media with spontaneo us rupture of ear drum, left ear; Note: Date Diagnosed : 03/28/2019 1:00 PM (H66.012) Not Available [facility] 4 02:43:29 Marginal perforati on of tympanic membrane 75075608 Active 2019 Other marginal perforati ons of tympanic membrane, left ear; Note: Date Diagnosed : 10/21/2019 10:35 AM (H72.2X2) Not Available [facility] 4 02:43:30 Acute sinusitis 04428836 Active 2019 Other acute sinusitis ; Note: Date Diagnosed : 10/21/2019 10:34 AM (J01.80) Other acute sinusitis ; Note: Date Diagnosed : 10/07/2016 10:40 AM (J01.80) ; Start Date : 7 Not Available [facility] 4 02:43:34 Otalgia of left ear 0816261589 Active 2019 Otalgia, left ear; Note: Date Diagnosed : 10/21/2019 10:35 AM (H92.02) Not Available [facility] 4 02:43:22 Acute myringiti s of left ear 09658498544 54894 Active 2019 Acute myringiti s, left ear; Note: Date Diagnosed : 0 11:43 AM (H73.002) Not Available [facility] 4 02:43:21 Sensorine ural hearing loss in right ear 62215922195 100 Active 2019 Sensorine ural hearing loss, unilatera l, right ear, with restricte d hearing on the contralat eral side; Note: Date Diagnosed : 0 11:27 AM (H90.A21) Not Available [facility] 4 02:43:26 Mixed conductiv e and sensorine ural hearing loss of left ear 03440318301 107 Active 2019 Mixed conductiv e and sensorine ural hearing loss, unilatera l, left ear with restricte d hearing on the contralat eral side; Note: Date Diagnosed : 0 11:27 AM (H90.A32) Not Available [facility] 4 02:43:24 Foreign body in left ear 05851729786 333226 Active 2022 Foreign body in left ear, initial encounter ; Note: Date Diagnosed : 3 9:19 AM (T16.2XXA ) Not Available [facility] 4 02:43:25 Acute serous otitis media of left ear 94832266203 11386 Active 2023 Acute serous otitis media, left ear; Note: Date Diagnosed : 11/10/2023 10:58 AM (H65.02) Not Available [facility] 4 02:43:26 Candidal otitis externa 10235540 Active 2023 DANIEL KENNEDY PA-C [address], [place], [address] , [place] - [facility] 4 10:56:28 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 Active 2023 DANIEL KENNEDY PA-C [address], [place], [address] , [place] - [facility] 4 10:56:28 Chronic mycotic otitis externa 258303253 Active 2023 DANIEL KENNEDY PA-C [address], [place], [address] , [place] - [facility] 4 10:56:28 Otorrhea 66918277 Active 2024 TRACI LOYA PA-C [address], [place], [address] , [place] - [facility] 5 12:05:52 Nasal congestio n 40357186 Active 2024 TRACI LOYA PA-C [address], [place], [address] , [place] - [facility] 5 09:27:47 Pain in face 39989712 Active 2024 TRACI LOYA PA-C [address], [place], [address] , [place] [facility] 5 09:27:59 Non-aller gic rhinitis 21895966145 1 Active 2024 TRACI LOYA PA-C [address], [place], [address] , [place] [facility] 5 09:29:29 Seasonal allergic rhinitis 285797248 Active 2024 TRACI LOYA PA-C [address], [place], [place], [address] , [place] - [facility] 5 09:29:29 Allergic rhinitis 54921819 Active 2024 TRACI LOYA PA-C [address] [address], [place], [address] , [facility] 5 09:29:29 Problem Notes None recorded. Procedures Surgical History Date Name Laterality Status Provider Name and Address Organization Details Recorded Time 5 Allergy Testing-Full completed KAYODE SOLER [address] [facility],[address] [address], [place], [address], [facility] 11/15/2024 11:11:49 Imaging Results None recorded. Procedure Notes None recorded. Medical Equipment None Reported. Allergies Allergen ID Allergen Name Allergen Category Reaction Reaction Severity Criticality Documentation Date Start Date Code Code System Note Provider Name and Address Organization Details Recorded Time 111416 Bactrim medicatio n other Not available Not available 12/29/2023 88475 9 RxNorm React ion: unkno wn, unspe cifie d;; Not Available [facility] 4 01:12:39 956423 Substance with sulfonami de structure and antibacte rial mechanism of action (substanc e) medicatio n other Not available Not available 12/29/2023 53627 8003 SNOMED React ion: unkno wn, unspe cifie d;; Not Available [facility] 4 01:12:42 Medications Name Sig Start Date Stop Date Status Note LastModified by Organization Details LastModified Time ciproflox acin 750 mg tablet TAKE 1 TABLET BY MOUTH TWICE A DAY 09/21 completed Not Available Not Available Not Available azithromy priscila 250 mg tablet 09/21 completed Medicati on ID: [id number] D uration Value: 5 Prescri bed By Name: ADAN Echevarria nd Name: azithindigo espino Sen d Method: E-Prescr ibed Sub [...] n cartridge 09/21 completed Medicati on ID: [id number] B rand Name: Josephtrol Send Method: E-Prescr ibed Sub s Allowed: subs OK Medic ationGen ericName : Nicotrol Not Available Not Available Not Available losartan 100 mg-hydroc hlorothia zide 25 mg tablet 05/29 completed Medicati on ID: [id number] D uration Value: 90 Brand Name: losartan [...] Not Available amoxicill in 875 mg tablet Take 1 tablet every 12 hours by oral route with meal(s) for 10 days, for right external ear infectio n. 09/21 completed Not Available Not Available Not [...] mg tablet 05/29 completed Medicati on ID: [id number] D uration Value: 90 Brand Name: irbesart [...] into the affected ear for 14 days 10/20 completed Not Available Not Available Not [...] ous pen 09/21 completed Medicati on ID: [id number] D uration Value: 30 Brand Name: Lantus [...] spray,devora pension 2016 active Medicati on ID: [id number] D uration Value: 30 Brand Name: Flonase [...] Updated DateTime 09/01/2024 160.02 cm 35.1 kg/m2 70301.29 g Carolyn Aggarwal [place] - [facility] 09/01/2024 11:05:07 Date Recorded Body height Body mass index (BMI) Body weight Provider Name and Address Organization Details Last Updated DateTime 09/21/2024 160.02 cm 35.1 kg/m2 49132.29 g Cori Brantley PA - [facility] 09/21/2024 09:10:59 Date Recorded Body height Body mass index (BMI) Body weight Heart rate Oxygen saturation Systolic And Diastolic Provider Name and Address Organization Details Last Updated DateTime 160.02 cm 35.4 kg/m2 22475.4 7 g 90 /min 98 % 133/85 mm[Hg] SLICK WONG, [address], [address] [place] - [facility] 09:06:56 Date Recorded Body height Heart rate Oxygen saturation Systolic And Diastolic Provider Name and Address Organization Details Last Updated DateTime 11/15/2024 160.02 cm 103 /min 96 % 131/84 mm[Hg] ANABELL LAMBERT, [facility] [address] [facility],[address], [address] , [place] - [facility] 11/15/2024 09:03:22 Date Recorded Body height Body mass index (BMI) Body weight Provider Name and Address Organization Details Last Updated DateTime 01/25/2024 160.02 cm 35.1 kg/m2 91071.29 g Janeen Haynes [place] - [facility] 01/25/2024 10:30:30 Social History Question Answer Notes LastModified by Organizat ion Details LastModified Time Tobacco Smoking Status Former Smoker SLICK WONG, [address],[place] [address], [place], [address] - [facility] 10/20/2024 09:08:22 When Did You Quit [...] ICD10 Code Diagnosis IMO Codes Diagnosis Note [id number] DANIEL KENNEDY PA-C [facility] [address] [address] 01/25/2024 10:12:44 01/25/2024 10:39:23 Candidal otitis externa 51797265 B37.84 [id number] TRACI LOYA PA-C [facility] [address] [address] 09/01/2024 11:00:07 09/01/2024 11:43:44 Otorrhea of left ear 5370233486 411087 H92.12 Otorrhea 02911611 H92.12 Chronic my cotic otitis externa 112960687 H60.399 Dermal mycosis 40895412 B36.9 Candidal o titis externa 99873768 B37.84 [id number] TRACI LOYA PA-C [facility] [address] [place] [address] 09/21/2024 08:54:08 09/21/2024 09:25:26 Otorrhea of left ear 8907675554 788384 H92.12 Nasal congestion 9959214 0 R09.81 Pain in face 08482916 R5 1.9 [id number] SLICK WONG, [facility] [address] [facility],[address] [place] [address] 10/20/2024 08:43:20 10/20/2024 10:14:15 Allergic rhinitis 56721229 J30.9 [id number] ANABELL LAMBERT, [facility] [address] [place] [address],[address] [place] [address] 11/15/2024 08:42:47 11/15/2024 11:12:51 Allergic rhinitis 62924976 J30.9 Health Concerns Section Related Observation LastModified by Organization Detai ls LastModified Time None Recorded Concern Status LastModified by Organization Details LastModified Time None Recorded Advance Directives Directive None Recorded Payers Insurance Date Sequence Insurance Name Policy Number Policy Mobley Covered Member ID Mobley Member ID Guarantor Name 12/04/2024 1 [facility] - DIRECT CONNECTORCARE TYPE I (HMO) [id number] Latesha Garrafa [id number] Latesha Garrafa 09/21/2024 1 [facility] - DIRECT - UPPER [place] ZERO (HMO) [id number] Latesha Garrafa [id number] Latesha Garrafa 09/21/2024 1 [facility] - PREFERRED (MEDICARE SUPPLEMENT) [id number] Latesha Garrafa [id number] Latesha Garrafa Notes Date Note Type Note Provider Name and Address Organization Details Recorded Time 01/25/2024 text/html ROS as noted in the [facility] 58-year-old female presents for evaluation of left ear fullness. This has been present for about 2 weeks. No pain but itching. FREDO CLARK MD [address] [facility],[address], [address], [facility] 01/25/2024 12:04:50 09/01/2024 text/html ROS as noted in the [facility] 59yo female with bilateral amplification, chronic mycotic [...] middle ear infection. FREDO CLARK MD [address] [facility],[address], [address], [facility] 09/02/2024 12:54:49 09/21/2024 text/html ROS as noted in the [facility] 59-year-old female with history of recurrent sinusitis [...] of temporary asthma. AGUSTINA OROPEZA MD [address] [facility],[address], [address], [facility] 09/21/2024 17:34:47 OBGyn Episode No OBEpisode recorded.
== END 2025-07-10 13:46 | disposition home or self-care (01) ==
LOC: HO.HAP 13:45
PROVIDERS: Visit Provider Internal Medicine
DX: H90.A32 Mixed conductive and sensorineural hearing loss, unilateral, left ear with restricted hearing on the contralateral side (principal)
CPT/HCPCS: V5267